=== PATIENT | male | born 1935 | race Caucasian/White ===

== ENCOUNTER 2018-03-05 07:10 | Observation (INO) | payer MEDICARE ==
[~2018-03-05] VITALS: Ht 177.8 cm; Wt 106.6 kg
[~2018-03-05 07:10] MED LIST: ASPIRIN325 MG PO; HCTZ; HYDROCHLOROTHIA25 MG PO; HYDROCODON-ACE1 EA12 PO; NORVASC; NORVASC5 MG PO; TENORMIN; TENORMIN25 MG PO; Z.0.ASPIRIN325 MG PO
--- OUTSIDE RECORDS SUMMARY | 2018-03-05 07:13 | XMS REPORT ---
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 Allergies, Adverse Reactions, Alerts This patient has no known allergies or adverse reactions. Medications This patient has no known medications. Results Test Description Test Time Test Comments Text Results Atomic Results Result Comments KNEE LEFT 1-2 VIEWS [place] [address] Patient Name: YAKOV ARTHUR MR #: [id number] : 1935 Age/Sex: 82/M Req #: [id number] [facility] Physician: Ordered by: LUBNA GARCIA MD Report #: [id number] Location: OR Room/Bed: Procedure: [id number] DX/KNEE LEFT 1-2 VIEWS Exam Date: 03/11/17 Exam Time: 1140 REPORT STATUS: Signed PROCEDURE: KNEE LEFT 1-2 VIEWS TECHNIQUE: AP and crosstable lateral views left knee INDICATION: Postsurgical evaluation COMPARISON: None. FINDINGS: See conclusion. CONCLUSION: 1. Total left knee arthroplasty intact and in anatomic alignment. 2. Expected postsurgical changes including joint gas, effusion, soft tissue swelling and overlying surgical alban. 3. Femoral and popliteal atherosclerosis. Dictated by: María Elena Eden M.D. on 03/11/2017 at 12:07 Electronically approved by: María Elena Eden M.D. on 03/11/2017 at 12:07 Dictated By: MARÍA ELENA EDEN MD 1207 Transcribed By: HARMEET on 03/11/17 1207 COPY TO: LUBNA GARCIA MD CHEST 2 VIEWS [place] [address] Patient Name: YAKOV ARTHUR MR #: [id number] : 1935 Age/Sex: 82/M Req #: [id number] Adm Physician: Ordered by: LUBNA GARCIA MD Report #: [id number] Location: OR Room/Bed: Procedure: [id number] DX/CHEST 2 VIEWS Exam Date: Exam Time: REPORT STATUS: Signed PROCEDURE: Frontal and lateral views of the chest. COMPARISON: [facility], DX, CHEST 2 VIEWS, 03/02/2012, 5:01. INDICATIONS: PREOPERATIVE CHEST XRAY FOR LEFT KNEE SURGERY FINDINGS: Lines/tubes: None. Lungs: The lungs are well inflated and clear. There is no evidence of pneumonia or pulmonary edema. Pleura: There is no pleural effusion or pneumothorax. Heart and mediastinum: The heart and the mediastinum are normal. Atherosclerotic calcification of the aortic arch. Bones: No acute bony abnormality. IMPRESSION: 1. No acute cardiopulmonary abnormalities. Jenise Erickson M.D. Dictated by: Jenise Erickson M.D. on 03/07/2017 at 12:29 Electronically approved by: Jenise Erickson M.D. on 03/07/2017 at 12:29 Dictated By: JENISE ERICKSON MD 28 Transcribed By: HARMEET on 03/07/171228 COPY TO: LUBNA GARCIA MD KNEE LEFT THREE VIEWS [place] [address] Patient Name: YAKOV ARTHUR MR #: [id number] : 1935 Age/Sex: 82/M Req #: [id number] Adm Physician: Ordered by: OLENA MARTINEZ Report #: [id number] Location: ER Room/Bed: Procedure: [id number] DX/KNEE LEFT THREE VIEWS Exam Date: 02/14/17 Exam Time: 1715 REPORT STATUS: Signed PROCEDURE: X-RAY LEFT KNEE, THREE OR MORE VIEWS COMPARISON: None. INDICATIONS: LEFT KNEE LATERAL PAIN, unable to bend knee FINDINGS: The bones are diffusely demineralized and intact. Mild varus deformity is present. There are moderate degenerative changes of the medial and patellofemoral compartments and [id number] degenerative changes of the lateral compartment. A small joint effusion is present. Atherosclerotic calcifications are present in the arterial structures. 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 Dictated by: Kenna Zaidi M.D. on 02/14/2017 at 18:04 Electronically approved by: Kenna Zaidi M.D. on 02/14/2017 at 18:04 Dictated By: KENNA ZAIDI MD 03 Transcribed By: HARMEET on 02/14/171803 COPY TO: OLENA MARTINEZ
[2018-03-05 08:39] LABS: BASOPHILS % 0.5 % (0.0-1.0); EOSINOPHILS # (AUTO) 0.2 (0.0-0.4); EOSINOPHILS % 2.7 % (0.0-6.0); HEMOGLOBIN 14.4 g/dL (14.0-18.0); LYMPHOCYTES # (AUTO) 2.3 (1.0-3.2); LYMPHOCYTES % 29.1 % (18.0-39.1); MEAN CORPUSCULAR HEMOGLOBIN 25.4 pg (28-32); MEAN CORPUSCULAR VOLUME 79.4 fL (81-99); MONOCYTES # (AUTO) 0.9 (0.2-0.8); MONOCYTES % 12.2 % (4.4-11.3); NEUTROPHILS # (AUTO) 4.2 (2.1-6.9); PLATELET COUNT 138 x10e3/uL (140-360); RED BLOOD COUNT 5.67 x10e6/uL (4.3-5.7); RED CELL DISTRIBUTION WIDTH 14.5 % (11.7-14.4)
[2018-03-05] MEDS ORDERED: PANTOPRAZOLE 40 MG 10ML VIAL IV ONE (08:40)
[2018-03-05 08:49] LABS: AMPHETAMINES SCREEN,URINE NEGATIVE (NEGATIVE); BENZODIAZEPINES SCREEN,URINE NEGATIVE (NEGATIVE); PHENCYCLIDINE SCREEN,URINE NEGATIVE (NEGATIVE)
[2018-03-05 09:09] LABS: ALBUMIN 3.5 g/dL (3.5-5.0); ALBUMIN/GLOBULIN RATIO 1.1 (0.8-2.0); ANION GAP 10.7 mmol/L (8-16); CALCIUM 9.3 mg/dL (8.4-10.2); CREATININE, SERUM 1.17 mg/dL (0.72-1.25); POTASSIUM 3.7 mmol/L (3.5-5.1)
[2018-03-05 09:16] LABS: CREATINE KINASE MB 1.1 ng/mL (0-5.0)
[2018-03-05 11:42] VITALS: BP 150/72
[2018-03-05 12:37] VITALS: BP 150/72
[2018-03-05 12:39] VITALS: BP 150/72
[2018-03-05 14:48] LABS: HEMATOCRIT 47.1 % (38.2-49.6); HEMOGLOBIN 15.1 g/dL (14.0-18.0)
[2018-03-05] MEDS ORDERED: AMLODIPINE BESYLATE 5 MG TAB PO SCH (15:45)
[2018-03-05 16:22] VITALS: BP 152/98
--- NOTE | 2018-03-05 18:10 | History and Physical ---
SHORTSTAY SUMMARY PRIMARY CARE PROVIDER: Dr. Gorge Gilman. ADMITTING DIAGNOSES 1. Rectal bleeding. 2. Hypertension. 3. Arthritis. DISCHARGE DIAGNOSES 1. Rectal bleeding. 2. Hypertension. 3. Arthritis. 4. Hemorrhoids as a source of rectal bleeding. HISTORY OF PRESENT ILLNESS: Mr. Sevilla is an 83-year-old gentleman who does have a history of hemorrhoids in the past. He started noticing some faint amount of blood on the paper when he was wiping for the last 2 days and then last night had a bowel movement that had blood in it. He has had no bowel movement today. REVIEW OF SYSTEMS: He denies fever, chills or weight loss. He denies sinus congestion or sore throat. He denies chest pain or palpitations. He denies shortness breath, wheezing or cough. He denies abdominal pain, nausea or vomiting. He had rectal bleeding. He denies any previous melena. He denies dysuria or flank pain. He denies rash or pruritus. He denies joint pain or swelling except for arthritis. He denies headache, vertigo or loss of consciousness. He denies depression, agitation, homicidal or suicidal ideation. PAST MEDICAL HISTORY: Significant for hypertension, arthritis and hemorrhoids. He also has a history of a left total knee replacement. MEDICATIONS: Include Norvasc 5 mg daily and atenolol 25 mg daily and hydrochlorothiazide 25 mg daily and aspirin 325 mg daily. HE HAS NO KNOWN DRUG ALLERGIES. FAMILY HISTORY: Significant for hypertension. SOCIAL HISTORY: The patient is . Singaporean is his primary language. He does not smoke, drink or use illegal drugs, and he is generally independently functioning. PHYSICAL EXAM: PSYCHIATRIC: He is awake, alert and oriented times 3. He has normal mood and affect. He has a normal body habitus. Is in no acute distress. VITAL SIGNS: Blood pressure 150/72. Pulse 67 and regular. Respiratory rate 21. O2 sat 98% on room air. Temperature 97.8. HEENT: His head is atraumatic. His eyes are anicteric with clear conjunctivae. Ears and nares are without erythema or discharge. Oropharynx is clear. NECK: Is supple with no mass or thyromegaly. LYMPHATIC SYSTEM: He has no palpable cervical, axillary or inguinal adenopathy. CARDIOVASCULAR: His heart has a regular rate and rhythm without murmur or extra heart sound. He has no carotid bruit. He has no peripheral edema. He has palpable dorsal pedal pulses. RESPIRATORY: Lungs are clear to auscultation and percussion with normal respiratory effort. GASTROINTESTINAL: His abdomen is soft without organomegaly, masses or tenderness. He has normal bowel sounds present. CUTANEOUS: His skin is warm and dry to the touch with no rash or skin breakdown. MUSCULOSKELETAL: His joints are in normal alignment without erythema or swelling. He has no calf tenderness. NEUROLOGIC: Exam is nonfocal with intact cranial nerves and no motor or sensory deficits. DIAGNOSTIC STUDIES: His UDS is positive for opiates. His CBC shows a white count of 7.72 with a normal differential, hemoglobin 14.4, hematocrit 45.0, platelet count 138,000. Six hours later, hemoglobin 15.1, hematocrit 47.1. His coags are normal. His transaminases, bilirubin, alk phos are normal. IMPRESSION: 1. Rectal bleeding. Most likely hemorrhoidal. No significant drop in H&H. 2. Hypertension. Continue Norvasc and atenolol. 3. For prophylaxis, the patient was put on Protonix. HOSPITAL COURSE: The patient was admitted for 12 hours. His H&H remained stable; in fact, it actually went up. He had no further bleeding. No bowel movement today. He was discharged home to resume a regular diet, activity as tolerated, to continue all of his home medications and to follow up with his PCP within 2 weeks to arrange for outpatient colonoscopy. Job#: [id number] EV
[2018-03-06] MEDS ORDERED: ATENOLOL 25 MG PO SCH (09:00)
[2018-03-06] MEDS ORDERED: PANTOPRAZOLE 40 MG 10ML VIAL IV SCH (09:00)
[2018-03-06] MEDS ORDERED: ATENOLOL 50 MG TAB PO SCH (09:00)
== END 2018-03-05 18:09 | disposition home or self-care (01) ==
LOC: ER 07:10 → ERHOLD 08:55 → IMCU 11:22
PROVIDERS: ADMIT Internal Medicine; ATTEND Internal Medicine
DX: K64.8 Other hemorrhoids (principal); K92.1 Melena; I10 Essential (primary) hypertension; M19.90 Unspecified osteoarthritis, unspecified site; Z96.652 Presence of left artificial knee joint
CPT/HCPCS: 36415; 80053; 80307; 82550; 82553; 84484; 85014; 85018; 85025; 85730; 86850; 86900; 93005; 99284; G0378

== ENCOUNTER → 2018-04-22 | Outpatient (CLI) | payer MEDICARE ==
[~2018-04-22] MED LIST changes: +IOPAMIDOL 370 MG/ML 200 ML INFUS..BTL INJ ONE; +SODIUM CHLORIDE 0.9% 50ML 50 ML ONE
[2018-04-22 08:31] LABS: BLOOD UREA NITROGEN 15 mg/dL (7-26); BUN/CREATININE RATIO 15 (6-25); CREATININE, SERUM 0.98 mg/dL (0.72-1.25); EST GLOMERULAR FILTRATION RATE > 60 ML/MIN (60-)
--- NOTE | 2018-04-22 09:29 | Diagnostic Imaging Report ---
EXAMINATION: CT of the abdomen and pelvis with contrast. TECHNIQUE: Spiral CT images of the abdomen and pelvis were performed from the lung bases to the lesser trochanters after the intravenous administration of 100 cc of Isovue-370. Coronal and sagittal reformatted images were obtained. COMPARISON: None. CLINICAL HISTORY:Rectal mass by recent colonoscopy, multiple colon polyps, diverticulosis DISCUSSION: ABDOMEN/PELVIS: LOWER THORAX:5 mm juxtapleural right lower lobe nodule seen on series 2 image 4. Right lower lobe calcified granuloma series 2 image 16. HEPATOBILIARY: 1.8 cm hypoattenuating lesion in segment 6-7, average internal attenuation 6 Hounsfield units, compatible with a cyst. Hepatic parenchyma is otherwise diffusely hypoattenuating compatible with steatosis. No additional focal hepatic lesion. No intrahepatic biliary ductal dilatation. The gallbladder is normal. SPLEEN: No splenomegaly. PANCREAS: No focal masses or ductal dilatation. ADRENALS: No adrenal nodules. KIDNEYS/URETERS: Subcentimeter exophytic lesion projecting from the upper pole of the left kidney is too small to further characterize but likely to represent a small cyst. No additional focal renal lesions. No hydronephrosis. No calculi. PELVIC ORGANS/BLADDER: The urinary bladder is incompletely distended but otherwise unremarkable. The prostate is enlarged, measuring 6.7 cm transversely. PERITONEUM/RETROPERITONEUM: No ascites. No pneumoperitoneum. LYMPH NODES: No pelvic sidewall or retroperitoneal lymphadenopathy. 1.2 cm lymph node along the inferior mesenteric arterial chain (series 2 image 61). Enlarged medial rectal lymph nodes measure up to 11 mm short axis seen on series 2 image 68 and 67. VESSELS: There is atherosclerotic calcification of the abdominal aorta, major branch vessels, and iliac arterial systems without aneurysmal dilatation. Portal vein, splenic vein, and central superior mesenteric vein are patent. GI TRACT: 5.7 cm AP x 4.6 cm transverse irregularly marginated hypoattenuating mass of the distal sigmoid/proximal rectum best seen on series 2 image 71. Multiple descending and sigmoid diverticula without findings of diverticulitis. The appendix is not identified and may have been removed. Prominence of the gastric rugal folds is a consequence of peristalsis and underdistention. No small bowel dilatation to suggest obstruction. BONES AND SOFT TISSUE: No osseous destructive lesions. Multilevel degenerative disc changes and degenerative facet arthropathy of the lumbar spine. Small bilateral fat-containing inguinal hernias. No additional focal soft tissue abnormalities. IMPRESSION: 5.7 cm distal sigmoid/proximal rectal mass in keeping with the provided clinical history of endoscopically detected colorectal cancer. Regional metastatic lymphadenopathy in the mesocolon and along the inferior mesenteric arterial chain as detailed above. No definite evidence of distant metastases. 5 mm juxtapleural right lower lobe pulmonary nodule is likely related to prior infectious or inflammatory process, particularly in the setting of an adjacent right lower lobe calcified granuloma. However, attention on follow-up imaging studies is suggested. Atherosclerotic vascular disease. Large bowel diverticulosis without evidence of diverticulitis. Hepatic steatosis. Signed by: Dr. Gonzalez Amaro M.D. on 04/22/2018 9:26 AM
== END ==
LOC: CT 07:22
PROVIDERS: ATTEND Internal Medicine Gastroenterology
DX: K92.1 Melena (principal); K56.600 Partial intestinal obstruction, unspecified as to cause; D12.0 Benign neoplasm of cecum; D12.3 Benign neoplasm of transverse colon; D12.4 Benign neoplasm of descending colon; K57.30 Diverticulosis of large intestine without perforation or abscess without bleeding
CPT/HCPCS: 36415; 74177; 82565; 84520; Q9967

== ENCOUNTER 2018-05-01 10:49 | Inpatient (IN) | payer MEDICARE ==
[2018-04-28 11:43] LABS: BASOPHILS % 0.4 % (0.0-1.0); EOSINOPHILS # (AUTO) 0.2 (0.0-0.4); HEMATOCRIT 47.9 % (38.2-49.6); LYMPHOCYTES # (AUTO) 2.3 (1.0-3.2); LYMPHOCYTES % 25.3 % (18.0-39.1); MEAN CORPUSCULAR HEMOGLOBIN 24.7 pg (28-32); MEAN CORPUSCULAR HGB CONC 31.3 g/dL (31-35); MEAN CORPUSCULAR VOLUME 78.9 fL (81-99); MONOCYTES # (AUTO) 1.1 (0.2-0.8); MONOCYTES % 11.5 % (4.4-11.3); NEUTROPHILS # (AUTO) 5.5 (2.1-6.9); NEUTROPHILS % 60.4 % (38.7-80.0); PLATELET COUNT 180 x10e3/uL (140-360); RED BLOOD COUNT 6.07 x10e6/uL (4.3-5.7); RED CELL DISTRIBUTION WIDTH 15.1 % (11.7-14.4)
--- NOTE | 2018-04-28 11:47 | Diagnostic Imaging Report ---
EXAMINATION: CHEST 2 VIEWS INDICATION: ^PREOP PROTOCOL. Rectal mass. COMPARISON: CT abdomen and pelvis 04/22/2018. FINDINGS: PA and lateral views TUBES and LINES: None. LUNGS: Lungs are well inflated. Lungs are clear. There is no evidence of pneumonia or pulmonary edema. PLEURA: No pleural effusion or pneumothorax. HEART AND MEDIASTINUM: The cardiomediastinal silhouette is unremarkable. There are atherosclerotic calcifications within the aorta. BONES AND SOFT TISSUES: No acute osseous lesion. Soft tissues are unremarkable. UPPER ABDOMEN: No free air under the diaphragm. IMPRESSION: No acute thoracic abnormality. Signed by: Dr. Steve Romero M.D. on 04/28/2018 11:44 AM
[2018-04-28 11:59] LABS: ANION GAP 15.4 mmol/L (8-16); BLOOD UREA NITROGEN 11 mg/dL (7-26); BUN/CREATININE RATIO 11 (6-25); CALCIUM 9.8 mg/dL (8.4-10.2); CARBON DIOXIDE 27 mmol/L (22-29); CHLORIDE 101 mmol/L (98-107); CREATININE, SERUM 1.03 mg/dL (0.72-1.25); EST GLOMERULAR FILTRATION RATE > 60 ML/MIN (60-); GLUCOSE 103 mg/dL (74-118); POTASSIUM 4.4 mmol/L (3.5-5.1); SODIUM 139 mmol/L (136-145)
[~2018-05-01] VITALS: Ht 182.9 cm; Wt 102.5 kg
[~2018-05-01 10:49] MED LIST changes: +ATENOLOL50 MG PO; -IOPAMIDOL 370 MG/ML 200 ML INFUS..BTL INJ ONE; -SODIUM CHLORIDE 0.9% 50ML 50 ML ONE
[2018-05-01] MEDS ORDERED: CEFOXITIN SOD 1 GM VIAL ONE (11:25)
[2018-05-01] MEDS ORDERED: BUPIVACAINE 0.25% 30ML SDV INJ ONE (13:01)
[2018-05-01] MEDS ORDERED: HYDROMORPHONE 2MG/ML 2 MG/ML ML ONE (14:14)
[2018-05-01] MEDS ORDERED: DIPHENHYDRAMINE HCL 25 MG CAP PO PRN (15:00)
[2018-05-01] MEDS ORDERED: NALOXONE HCL INJ 0.4 MG/ML AMP IV PRN (15:00)
[2018-05-01] MEDS ORDERED: ACETAMINOPHEN 1000 MG/100 ML IV PRN (15:00)
[2018-05-01] MEDS ORDERED: ONDANSETRON HCL INJ 2MG/ML 2ML 2 MG/ML VIAL ONE ×2 (15:23→19:20)
--- NOTE | 2018-05-01 15:57 | Operative Report ---
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 POSTOPERATIVE DIAGNOSIS: Carcinoma of the rectosigmoid colon. OPERATION PERFORMED: Laparoscopic-assisted rectosigmoid colon resection. REVIEW TRAINER: None. ANESTHESIA: General. INDICATIONS FOR PROCEDURE: The patient is an 83-year-old male who had blood in his stool, had a colonoscopy that revealed a tumor t the rectosigmoid colon. At surgery there was a large tumor involving the rectosigmoid colon with no other evidence of enlarged lymph nodes. No mass in the liver. TECHNIQUE: After adequate general endotracheal anesthesia with the patient in supine position with the legs in low stirrups, the abdomen and perineum were prepped and draped in a sterile fashion, the abdomen with ChloraPrep solution, the perineum with Betadine solution. Skin just below the umbilicus was infiltrated with 0.5% Marcaine. An incision was made, the abdominal wall was elevated and a Veress needle was introduced. Pneumoperitoneum was then created. A 10 mm trocar and cannula was then passed through this wound. A laparoscopic camera was introduced. Initial laparoscopy revealed no free fluid. No mass was seen. A 5 mm trocar and cannula was placed in the epigastrium, and a 5 mm trocar and cannula was placed suprapubically. These were placed under direct vision. The left colon and sigmoid colon were mobilized by dividing the peritoneal attachments. The colon was mobilized all way up to the splenic flexure and distally to the rectosigmoid colon where the tumor was seen. The left ureter was identified and preserved. The tumor was extending close to the ureter, but the ureter was not directly involved with the tumor. The colon was mobilized all the way down to the peritoneal reflection with the peritoneal attachments divided. Once again care was taken not to injure the ureter. The tumor also was abutting the iliac vessels, and it was dissected away from these vessels. Once the mobilization was complete, a lower midline incision was made. The peritoneal cavity was entered. The sigmoid colon was divided with the MARLEN stapler. This was just beyond the midsigmoid colon. The mesentery of the colon was divided with a LigaSure device. Care was taken not to injure the ureter. This was taken down to the sacral prominence, and then posteriorly all the vessels were divided until the dissection was carried below the level of the tumor. Once we were below the tumor, the colon was divided, the distal colon being stapled with a TL-60 stapler and the specimen was removed. The distal margin appeared to be about 2.5 cm. Hemostasis was seen to be adequate. At this point going transanally, the anus was dilated. An anastomosis was made between the proximal colon and the rectum with a 29 mm EEA stapler. Both tissue doughnuts were noted to be intact. Hemostasis was seen to be adequate. The wound was then irrigated with saline, inspected for hemostasis, which was seen to be adequate. The midline fascia was then closed with a running suture of number 1 PDS. The subcutaneous tissue was irrigated with saline. The skin to all wounds was closed with alban. A sterile dressing was applied. The patient tolerated the procedure well. Estimated blood loss was 125 mL. There were no complications. All counts were correct. The patient was taken to the recovery room in satisfactory condition. Job#: [id number] EV cc:MD CESAR CM MD MILTON E. KIRKWOOD, DO
[2018-05-01 16:59] VITALS: BP 143/81
[2018-05-01 17:22] VITALS: BP 131/88
[2018-05-01] MEDS: MORPHINE SULFATE 1 MG/ML 30ML PCA IV PRN (17:27)
--- NOTE | 2018-05-01 17:47 | NUR ---
notified Dr. Regalado of new consult for him by Dr. Padron for medical management.
[2018-05-01] MEDS ORDERED: CEFOXITIN 2GM/ D5W 50ML 50 ML IV SCH (18:00)
[2018-05-01] MEDS: DEXTROSE 5%/LACTATED RINGERS 1,000 ML IV SCH ×2 (18:55→22:53)
[2018-05-01 19:00] VITALS: BP 122/85
[2018-05-01] MEDS ORDERED: DEXAMETHASONE SOD PHOS INJ 4 MG/ML VIAL ONE (19:20)
[2018-05-01] MEDS ORDERED: EPHEDRINE SULFATE INJ 50 MG/10 ML SYR ONE (19:20)
[2018-05-01] MEDS ORDERED: SEVOFLURANE INHAL SOLN 250 ML PEN BTL ONE (19:20)
[2018-05-01] MEDS ORDERED: GLYCOPYRROLATE INJ 1MG/ 5 ML SYR ONE (19:20)
[2018-05-01] MEDS ORDERED: ROCURONIUM BROMIDE 10 MG/ML 5ML VIAL ONE (19:20)
[2018-05-01] MEDS ORDERED: LIDOCAINE HCL 2% LOCAL INJ 5 ML SDV VIAL INJ ONE (19:20)
[2018-05-01] MEDS ORDERED: NEOSTIGMINE 5 MG/5ML SYR ONE (19:20)
[2018-05-01] MEDS ORDERED: FENTANYL CITRATE/PF 100MCG/2 ML INJ ONE (19:20)
[2018-05-01] MEDS ORDERED: PROPOFOL IV EMULSION 10 MG/ML 20 ML VIAL ONE (19:20)
[2018-05-01] MEDS ORDERED: MIDAZOLAM HCL 2 MG/2 ML VIAL ONE (19:20)
[2018-05-01 20:00] VITALS: BP 120/72
[2018-05-01] MEDS: CEFOXITIN SODIUM IV SCH (20:13)
[2018-05-01] MEDS: SODIUM CHLORIDE 0.9% IV SCH (20:13)
[2018-05-01] MEDS: ONDANSETRON HCL INJ 2MG/ML 2ML 2 MG/ML VIAL IV PRN (20:15)
[2018-05-01 21:00] VITALS: BP 105/72
[2018-05-01 22:00] VITALS: BP 114/73
[2018-05-02] VITALS (15 sets, daily range): BP systolic 101–116; BP diastolic 56–68
[2018-05-02] MEDS: CEFOXITIN SODIUM IV SCH ×2 (00:24→05:09)
[2018-05-02] MEDS: ONDANSETRON HCL INJ 2MG/ML 2ML 2 MG/ML VIAL IV PRN (00:24)
[2018-05-02] MEDS: SODIUM CHLORIDE 0.9% IV SCH ×2 (00:24→05:09)
[2018-05-02 04:53] LABS: BASOPHILS % 0.2 % (0.0-1.0); EOSINOPHILS % 0.1 % (0.0-6.0); HEMATOCRIT 36.5 % (38.2-49.6); HEMOGLOBIN 12.2 g/dL (14.0-18.0); LYMPHOCYTES # (AUTO) 1.5 (1.0-3.2); LYMPHOCYTES % 13.5 % (18.0-39.1); MEAN CORPUSCULAR HEMOGLOBIN 25.6 pg (28-32); MEAN CORPUSCULAR HGB CONC 33.4 g/dL (31-35); MEAN CORPUSCULAR VOLUME 76.5 fL (81-99); MONOCYTES # (AUTO) 1.4 (0.2-0.8); MONOCYTES % 12.4 % (4.4-11.3); NEUTROPHILS # (AUTO) 8.3 (2.1-6.9); NEUTROPHILS % 73.5 % (38.7-80.0); PLATELET COUNT 150 x10e3/uL (140-360); RED BLOOD COUNT 4.77 x10e6/uL (4.3-5.7); RED CELL DISTRIBUTION WIDTH 15.2 % (11.7-14.4)
[2018-05-02 05:05] LABS: ANION GAP 11.1 mmol/L (8-16); BLOOD UREA NITROGEN 14 mg/dL (7-26); BUN/CREATININE RATIO 13 (6-25); CALCIUM 8.2 mg/dL (8.4-10.2); CARBON DIOXIDE 26 mmol/L (22-29); CHLORIDE 106 mmol/L (98-107); CREATININE, SERUM 1.05 mg/dL (0.72-1.25); EST GLOMERULAR FILTRATION RATE > 60 ML/MIN (60-); GLUCOSE 145 mg/dL (74-118); POTASSIUM 4.1 mmol/L (3.5-5.1); SODIUM 139 mmol/L (136-145)
[2018-05-02] MEDS: DEXTROSE 5%/LACTATED RINGERS 1,000 ML IV SCH (05:09)
[2018-05-02 07:22] LABS: CHOL/HDL RATIO 4.9 (3.9-4.7)
--- NOTE | 2018-05-02 07:59 | Consultation ---
DATE OF CONSULTATION: MEDICAL CONSULTATION REQUESTING PHYSICIAN: Dr. Padron. REASON FOR CONSULTATION: Medical management. CHIEF COMPLAINT: Rectosigmoid cancer diagnosed in April 2018, now status post surgical resection. HISTORY OF PRESENT ILLNESS: This is an 83-year-old man with a history of tobacco use who has dipped tobacco for more than 60 years, now found to have 5.7-cm distal sigmoid/proximal rectal mass consistent with colorectal cancer on 04/22/2018. Underwent surgical resection overnight by Dr. Padron, now in the ICU for management. The patient's pain is controlled with SERVICE STATION HELPER pump. He denies any shortness of breath or chest pain. PAST MEDICAL HISTORY: A 5.7-cm distal sigmoid/proximal rectal mass consistent with colorectal cancer, tobacco smoking and dipping, hepatic steatosis, atherosclerotic vascular disease, hypertension, anemia, arteritis, rectal bleeding, hemorrhoids. PAST SURGICAL HISTORY: Unknown. ALLERGIES: PER ELECTRONIC MEDICAL RECORD. FAMILY/SOCIAL HISTORY: Remote history of smoking. He dipped tobacco for more than 60 years. Occasional alcohol. No illicits. MEDICATIONS: Per electronic medical record. REVIEW OF SYSTEMS: Denies any dizziness, chest pain, shortness of breath, fever, chills, sweats, nausea, vomiting, headache, leg pain, back pain. PHYSICAL EXAMINATION VITAL SIGNS: Reviewed. GENERAL: A tired-appearing man, resting in bed. HEENT: Anicteric. CARDIOVASCULAR: Normal S1 and S2. LUNGS: Normal breath sounds. ABDOMEN: Soft, nondistended. He has midline dressing in place. EXTREMITIES: No edema or calf tenderness. NEUROLOGIC: He is alert and oriented x3, moves all extremities. SKIN: Dry. PSYCHIATRIC: Normal affect. LABS: Reviewed. MEDICATIONS: Reviewed. ASSESSMENT: This is an 83-year-old man. 1. Colorectal cancer. 2. Hypertension. 3. Obesity, body mass index is 32.2. 4. Hyperglycemia. 5. History of tobacco use. PLAN 1. Status post resection of the colorectal mass. 2. Continue pain management. 3. Screen for hemoglobin A1c and lipid panel. 4. SCD for DVT prophylaxis and Pepcid for GI prophylaxis. 5. Monitor closely. Diet, will defer to surgical team. Job#: [id number]
[2018-05-02] MEDS: MORPHINE SULFATE 1 MG/ML 30ML PCA IV PRN (08:30)
[2018-05-02] MEDS: AMLODIPINE BESYLATE 5 MG TAB PO SCH (09:00)
[2018-05-02] MEDS: ATENOLOL 50 MG TAB PO SCH (09:00)
[2018-05-02] MEDS: HYDROCHLOROTHIAZIDE 25 MG TAB PO SCH (09:00)
[2018-05-02] MEDS: FAMOTIDINE 20 MG/2 ML VIAL IV SCH ×2 (09:07→17:22)
[2018-05-02] MEDS: KETOROLAC TROMETHAMINE 30 MG/ML VIAL IV PRN ×2 (10:15→16:20)
--- NOTE | 2018-05-02 14:37 | NUR ---
paged Dr. Padron as patient asking for ice chips and to remove yepez catheter. encouraging patient to turn and deep breathing exercises. patient verbalized understanding.
[2018-05-02] MEDS: DEXTROSE 5%/0.45% SOD CHL 1,000 ML IV SCH ×3 (15:45→17:27)
--- NOTE | 2018-05-02 17:34 | NUR ---
yepze catheter removed. dtv 0000
--- NOTE | 2018-05-02 17:35 | NUR ---
pt sat in chair x 45minutes-1hr. pt tolerated oob well then became tired. pt hesitant to move due to pain. 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
--- NOTE | 2018-05-02 18:26 | NUR ---
Received patient from ICU at this time, alert and responsive, able to make needs known, Roeyr d/c'd per ICU nurse and due to void at 12 midnight tonight, IMAGING AIDE pump in place for pain management, call light within reach, bed alarms in place, on clear liqs, will monitor.
--- NOTE | 2018-05-02 19:10 | NUR ---
REPORT RECEIVED FROM OFF GOING NURSE, PT RESTING IN BED ALERT AND ORIENTED, WITH NO DISTRESS NOTED, IV INFUSING PER ORDER, CALL LIGHT IN REACH, PT INSTRUCTED TO INFORM OF FIRST VOID, PT VOICES UNDERSTANDING, INSTRUCTED TO CALL WITH NEEDS
[2018-05-03] VITALS (8 sets, daily range): BP systolic 101–143; BP diastolic 51–65
[2018-05-03 05:43] LABS: HEMATOCRIT 35.2 % (38.2-49.6); HEMOGLOBIN 11.6 g/dL (14.0-18.0); MEAN CORPUSCULAR HEMOGLOBIN 25.8 pg (28-32); MEAN CORPUSCULAR VOLUME 78.2 fL (81-99); PLATELET COUNT 141 x10e3/uL (140-360); RED CELL DISTRIBUTION WIDTH 15.3 % (11.7-14.4)
[2018-05-03 06:00] LABS: ANION GAP 11.4 mmol/L (8-16); BLOOD UREA NITROGEN 12 mg/dL (7-26); BUN/CREATININE RATIO 11 (6-25); CALCIUM 8.3 mg/dL (8.4-10.2); CARBON DIOXIDE 26 mmol/L (22-29); CHLORIDE 106 mmol/L (98-107); CREATININE, SERUM 1.09 mg/dL (0.72-1.25); EST GLOMERULAR FILTRATION RATE > 60 ML/MIN (60-); GLUCOSE 125 mg/dL (74-118); POTASSIUM 4.4 mmol/L (3.5-5.1); SODIUM 139 mmol/L (136-145)
[2018-05-03] MEDS: FAMOTIDINE 20 MG/2 ML VIAL IV SCH ×2 (09:11→16:12)
[2018-05-03] MEDS: AMLODIPINE BESYLATE 5 MG TAB PO SCH (09:11)
[2018-05-03] MEDS: HYDROCHLOROTHIAZIDE 25 MG TAB PO SCH (09:11)
[2018-05-03] MEDS: ATENOLOL 50 MG TAB PO SCH (09:12)
[2018-05-03] MEDS: KETOROLAC TROMETHAMINE 30 MG/ML VIAL IV PRN (09:15)
--- NOTE | 2018-05-03 09:28 | NUR ---
Patient medicated with Toradol and assisted OOB, ambulated in room to chair and daughter in room with patient, no resp distress, pains managed with BIG DATA HADOOP DEVELOPER morphine in place, will monitor.
--- NOTE | 2018-05-03 12:56 | NUR ---
IV to RAC infiltrated and new one to LAC 20 and infusing.
[2018-05-03] MEDS: DEXTROSE 5%/0.45% SOD CHL 1,000 ML IV SCH ×2 (13:12→21:45)
[2018-05-03] MEDS: MORPHINE SULFATE 1 MG/ML 30ML PCA IV PRN (13:15)
--- NOTE | 2018-05-03 17:06 | NUR ---
REVIEW OF SYSTEMS: Denies any dizziness, chest pain, shortness of breath, fever, chills, sweats, nausea, vomiting, headache, leg pain, back pain. PHYSICAL EXAMINATION VITAL SIGNS: Reviewed. GENERAL: A tired-appearing man, resting in bed. HEENT: Anicteric. CARDIOVASCULAR: Normal S1 and S2. LUNGS: Normal breath sounds. ABDOMEN: Soft, nondistended. He has midline dressing in place. EXTREMITIES: No edema or calf tenderness. NEUROLOGIC: He is alert and oriented x3, moves all extremities. SKIN: Dry. PSYCHIATRIC: Normal affect. LABS: Reviewed. MEDICATIONS: Reviewed. ASSESSMENT: This is an 83-year-old man. 1. Colorectal cancer. 2. Hypertension. 3. Obesity, body mass index is 32.2. 4. Hyperglycemia. 5. History of tobacco use. PLAN 1. Status post resection of the colorectal mass. 2. Continue pain management. 3. Screen for hemoglobin A1c and lipid panel. 4. SCD for DVT prophylaxis and Pepcid for GI prophylaxis. 5. Monitor closely. Diet, will defer to surgical team. 05/03 s/p Sandra morrison with DANIELA drain; Hudson Regalado MD, PhD.
--- NOTE | 2018-05-03 19:10 | NUR ---
REPORT RECEIVED FROM OFF GOING NURSE, PT SITTING UP IN BED ALERT AND ORIENTED, NO DISTRESS NOTED, IV INFUSING PER ORDER, DROP FORGE HAND AT BEDSIDE WITH BUTTON IN REACH, BED LOCKED AND LOW, PERSONAL ITEMS IN REACH, PT DENIES NEEDS, CALL LIGHT IN REACH, INSTRUCTED TO CALL WITH NEEDS
--- NOTE | 2018-05-03 20:34 | NUR ---
ADDENDUM NOTE; (error- not lap tamiko) IM- Progress Note O/N: no BM REVIEW OF SYSTEMS: Denies any dizziness, chest pain, shortness of breath, fever, chills, sweats, nausea, vomiting, headache, leg pain, back pain. PHYSICAL EXAMINATION VITAL SIGNS: Reviewed. GENERAL: A tired-appearing man, resting in bed. HEENT: Anicteric. CARDIOVASCULAR: Normal S1 and S2. LUNGS: Normal breath sounds. ABDOMEN: Soft, nondistended. He has midline dressing in place. EXTREMITIES: No edema or calf tenderness. NEUROLOGIC: He is alert and oriented x3, moves all extremities. SKIN: Dry. PSYCHIATRIC: Normal affect. LABS: Reviewed. MEDICATIONS: Reviewed. ASSESSMENT: This is an 83-year-old man. 1. Colorectal cancer. 2. Hypertension. 3. Obesity, body mass index is 32.2. 4. Hyperglycemia. 5. History of tobacco use. PLAN 1. Status post resection of the colorectal mass. 2. Continue pain management. 3. Screen for hemoglobin A1c and lipid panel. 4. SCD for DVT prophylaxis and Pepcid for GI prophylaxis. 5. Monitor closely. Diet, will defer to surgical team. 05/03 pain well controlled; cont PT; ambulation; on CLD; await return of bowel function; Hudson Regalado MD, PhD.
[2018-05-04] VITALS (8 sets, daily range): BP systolic 122–151; BP diastolic 60–78
--- NOTE | 2018-05-04 04:27 | NUR ---
PT RESTING IN BED WITH EYES CLOSED, NO DISTRESS NOTED, IV INFUSING PER ORDER, AQUEDUCT AND RESERVOIR KEEPER PUMP AND BUTTON IN REACH, BED LOCKED AND LOW, CALL LIGHT IN REACH, DAUGHTER AT BED SIDE
--- NOTE | 2018-05-04 08:16 | NUR ---
Received patient this morning and rounding, c/o abdominal pain, noted burping with increased frequency, assisted OOB and ambulating to bathroom, voided and ambulated hallway for a total of about 250 feet, up sitting on chair in the room , daughter by bedside, will monitor.
[2018-05-04] MEDS: DEXTROSE 5%/0.45% SOD CHL 1,000 ML IV SCH ×2 (08:51→17:45)
[2018-05-04] MEDS: FAMOTIDINE 20 MG/2 ML VIAL IV SCH ×2 (08:51→17:00)
[2018-05-04] MEDS: HYDROCHLOROTHIAZIDE 25 MG TAB PO SCH (08:51)
[2018-05-04] MEDS: AMLODIPINE BESYLATE 5 MG TAB PO SCH (08:51)
[2018-05-04] MEDS: ATENOLOL 50 MG TAB PO SCH (08:51)
--- NOTE | 2018-05-04 17:08 | NUR ---
Patient OOB and ambulated again with staff on hallway and back to chair for dinner, pains well managed, abdl incision intact, tolerating diet and will monitor
--- NOTE | 2018-05-04 19:05 | NUR ---
IM- Progress Note O/N: no BM REVIEW OF SYSTEMS: Denies any dizziness, chest pain, shortness of breath, fever, chills, sweats, nausea, vomiting, headache, leg pain, back pain. PHYSICAL EXAMINATION VITAL SIGNS: Reviewed. GENERAL: A tired-appearing man, resting in bed. HEENT: Anicteric. CARDIOVASCULAR: Normal S1 and S2. LUNGS: Normal breath sounds. ABDOMEN: Soft, nondistended. He has midline dressing in place. EXTREMITIES: No edema or calf tenderness. NEUROLOGIC: He is alert and oriented x3, moves all extremities. SKIN: Dry. PSYCHIATRIC: Normal affect. LABS: Reviewed. MEDICATIONS: Reviewed. ASSESSMENT: This is an 83-year-old man. 1. Colorectal cancer. 2. Hypertension. 3. Obesity, body mass index is 32.2. 4. Hyperglycemia. 5. History of tobacco use. PLAN 1. Status post resection of the colorectal mass. 2. Continue pain management. 3. Screen for hemoglobin A1c and lipid panel. 4. SCD for DVT prophylaxis and Pepcid for GI prophylaxis. 5. Monitor closely. Diet, will defer to surgical team. 05/03 pain well controlled; cont PT; ambulation; on CLD; await return of bowel function; 05/04 add bowel reg. Hudson Regalado MD, PhD.
[2018-05-04] MEDS: DOCUSATE SODIUM 100 MG CAP PO SCH (21:06)
[2018-05-04] MEDS: SENNOSIDES 8.6 MG TAB PO SCH (21:06)
[2018-05-05] VITALS (7 sets, daily range): BP systolic 120–155; BP diastolic 65–84
[2018-05-05] MEDS: MORPHINE SULFATE 1 MG/ML 30ML PCA IV PRN
[2018-05-05] MEDS: DEXTROSE 5%/0.45% SOD CHL 1,000 ML IV SCH (03:36)
[2018-05-05] MEDS ORDERED: ACETAMINOPHEN/CODEINE 300MG - 30MG TAB PO PRN (07:30)
--- NOTE | 2018-05-05 07:30 | NUR ---
IM- Progress Note O/N: no BM REVIEW OF SYSTEMS: Denies any dizziness, chest pain, shortness of breath, fever, chills, sweats, nausea, vomiting, headache, leg pain, back pain. PHYSICAL EXAMINATION VITAL SIGNS: Reviewed. GENERAL: A tired-appearing man, resting in bed. HEENT: Anicteric. CARDIOVASCULAR: Normal S1 and S2. LUNGS: Normal breath sounds. ABDOMEN: Soft, nondistended. He has midline dressing in place. EXTREMITIES: No edema or calf tenderness. NEUROLOGIC: He is alert and oriented x3, moves all extremities. SKIN: Dry. PSYCHIATRIC: Normal affect. LABS: Reviewed. MEDICATIONS: Reviewed. ASSESSMENT: This is an 83-year-old man. 1. Colorectal cancer. 2. Hypertension. 3. Obesity, body mass index is 32.2. 4. Hyperglycemia. 5. History of tobacco use. PLAN 1. Status post resection of the colorectal mass. 2. Continue pain management. 3. Screen for hemoglobin A1c and lipid panel. 4. SCD for DVT prophylaxis and Pepcid for GI prophylaxis. 5. Monitor closely. Diet, will defer to surgical team. 05/03 pain well controlled; cont PT; ambulation; on CLD; await return of bowel function; 05/04 add bowel reg. 05/05 start oral pain meds; cont bowel reg; cont PT; d/c planning; check labs Hudson Regalado MD, PhD.
--- NOTE | 2018-05-05 07:40 | NUR ---
AMBULATING IN HALLWAY, STEADY GAIT
[2018-05-05 07:43] LABS: BASOPHILS % 0.3 % (0.0-1.0); EOSINOPHILS # (AUTO) 0.3 (0.0-0.4); EOSINOPHILS % 4.5 % (0.0-6.0); HEMATOCRIT 35.6 % (38.2-49.6); HEMOGLOBIN 12.4 g/dL (14.0-18.0); LYMPHOCYTES # (AUTO) 1.8 (1.0-3.2); LYMPHOCYTES % 24.6 % (18.0-39.1); MEAN CORPUSCULAR HEMOGLOBIN 26.8 pg (28-32); MEAN CORPUSCULAR HGB CONC 34.8 g/dL (31-35); MEAN CORPUSCULAR VOLUME 76.9 fL (81-99); MONOCYTES % 13.5 % (4.4-11.3); NEUTROPHILS # (AUTO) 4.1 (2.1-6.9); NEUTROPHILS % 56.7 % (38.7-80.0); PLATELET COUNT 147 x10e3/uL (140-360); RED BLOOD COUNT 4.63 x10e6/uL (4.3-5.7); RED CELL DISTRIBUTION WIDTH 15.1 % (11.7-14.4)
[2018-05-05 07:57] LABS: ANION GAP 13.1 mmol/L (8-16); BLOOD UREA NITROGEN 6 mg/dL (7-26); BUN/CREATININE RATIO 6 (6-25); CALCIUM 9.1 mg/dL (8.4-10.2); CARBON DIOXIDE 28 mmol/L (22-29); CHLORIDE 101 mmol/L (98-107); CREATININE, SERUM 1.06 mg/dL (0.72-1.25); EST GLOMERULAR FILTRATION RATE > 60 ML/MIN (60-); GLUCOSE 117 mg/dL (74-118); POTASSIUM 4.1 mmol/L (3.5-5.1); SODIUM 138 mmol/L (136-145)
[2018-05-05] MEDS: SENNOSIDES 8.6 MG TAB PO SCH (09:00)
--- NOTE | 2018-05-05 09:09 | NUR ---
AMBULATING IN HALLWAY, STEADY GAIT, FAMILY AT SIDE
[2018-05-05] MEDS: DOCUSATE SODIUM 100 MG CAP PO SCH ×2 (10:00→21:00)
[2018-05-05] MEDS: ATENOLOL 50 MG TAB PO SCH (10:00)
[2018-05-05] MEDS: FAMOTIDINE 20 MG/2 ML VIAL IV SCH ×2 (10:00→18:00)
[2018-05-05] MEDS: AMLODIPINE BESYLATE 5 MG TAB PO SCH (10:00)
[2018-05-05] MEDS: HYDROCHLOROTHIAZIDE 25 MG TAB PO SCH (10:00)
[2018-05-05] MEDS ORDERED: HYDROCODONE/APAP 5MG-325MG TAB PO PRN (17:45)
--- NOTE | 2018-05-05 19:35 | NUR ---
Patient visited in room during nursing rounds. Patient alert and oriented x3. No c/o pain or discomfort at this time. Pt ambulates with standby assist prn using walker. Pt daughter at bedside. Dressing on mid lower abdomen with 3 trocar sites appear clean and dry. Call [facility] within reach. Will monitor closely.
[2018-05-06] VITALS: BP 148/77
[2018-05-06 04:00] VITALS: BP 143/73
[2018-05-06] MEDS ORDERED: SENNA LAXATIVE8.6 MG PO (06:50)
[2018-05-06] MEDS ORDERED: COLACE100 M1 PO (06:50)
[2018-05-06] MEDS ORDERED: PEPCID20 MG PO (06:50)
--- NOTE | 2018-05-06 07:22 | NUR ---
Discharge Summary Principal Dx: ASSESSMENT: This is an 83-year-old man. 1. Colorectal cancer. 2. Hypertension. 3. Obesity, body mass index is 32.2. 4. Hyperglycemia. 5. History of tobacco use. Secondary Dx: Obesity cc and HPI: refer to H&P Hospital course: ASSESSMENT: This is an 83-year-old man. 1. Colorectal cancer. 2. Hypertension. 3. Obesity, body mass index is 32.2. 4. Hyperglycemia. 5. History of tobacco use. PLAN 1. Status post resection of the colorectal mass. 2. Continue pain management. 3. Screen for hemoglobin A1c and lipid panel. 4. SCD for DVT prophylaxis and Pepcid for GI prophylaxis. 5. Monitor closely. Diet, will defer to surgical team. 05/03 pain well controlled; cont PT; ambulation; on CLD; await return of bowel function; 05/04 add bowel reg. 05/05 start oral pain meds; cont bowel reg; cont PT; d/c planning; check labs 05/06 had BM; on solid food; d/c home d/c time.35mins d/c home f/u PCP 1 week and as directed condition: stable; Hudson Regalado MD, PhD.
--- NOTE | 2018-05-06 08:00 | NUR ---
Call to Dr. Padron to clarify clear liquid diet and will have to call attending to clarify given he ordered the diet.
--- NOTE | 2018-05-06 08:20 | NUR ---
Call to attending x2 and left message regarding clarification on diet.
[2018-05-06 08:34] VITALS: BP 121/72
--- NOTE | 2018-05-06 09:20 | NUR ---
CM SPOKE TO PATIENT AT BEDSIDE REGARDING IMM LETTER. IMM LETTER GIVEN WITH EXPLANATION. ORIGINAL SIGNED AND PLACED IN CHART; COPY OF ORIGINAL DOCUMENT GIVEN TO PATIENT AT BEDSIDE AND PLACED IN CARE TRANSITION FOLDER. CM CONTACT INFORMATION GIVEN TO PATIENT FOR ANY NEEDS OR CONCERNS. PATIENT WITH NO FURTHER QUESTIONS
[2018-05-06] MEDS: FAMOTIDINE 20 MG/2 ML VIAL IV SCH (09:51)
[2018-05-06] MEDS: HYDROCHLOROTHIAZIDE 25 MG TAB PO SCH (09:51)
[2018-05-06] MEDS: DOCUSATE SODIUM 100 MG CAP PO SCH (09:51)
[2018-05-06] MEDS: AMLODIPINE BESYLATE 5 MG TAB PO SCH (09:51)
[2018-05-06] MEDS: ATENOLOL 50 MG TAB PO SCH (09:52)
--- NOTE | 2018-05-06 10:20 | NUR ---
Call to attending by nurse lan manager and orders in place to resume regular diet
--- NOTE | 2018-05-06 10:48 | NUR ---
Patient provided with discharge documentation, will go home on regular diet. Provided with prescriptions, discharge documentation and educated on prognosis and infection. Contacts provided for f/u appt.
[2018-05-06 11:40] VITALS: BP 121/72
[2018-05-06 12:06] VITALS: BP 125/80
--- NOTE | 2018-05-06 13:05 | NUR ---
Patient alert and responsive, VSS, no c/o pains, provided with prescriptions and discharge documentation, contacts provided for f/u appt, seen by surgeon this morning and orders in place to discharge, IV line removed, cath tip in place and dressing applied.
[2018-05-06] MEDS ORDERED: FAMOTIDINE 20 MG TAB PO SCH (16:30)
== END 2018-05-06 13:13 | disposition home or self-care (01) | DRG 331 ==
LOC: OR 10:49 → PACU V 15:38 → ICU 16:18 → MED/SURG 05-02 18:35
PROVIDERS: ADMIT Surgery; ATTEND Surgery
PROC: 0DTN0ZZ Resection of Sigmoid Colon, Open Approach (ICD-10-PCS; principal; 2018-05-01 13:01)
DX: C19 Malignant neoplasm of rectosigmoid junction (principal); Z01.812 Encounter for preprocedural laboratory examination; I10 Essential (primary) hypertension; E66.9 Obesity, unspecified; Z68.32 Body mass index [BMI] 32.0-32.9, adult; R73.9 Hyperglycemia, unspecified; Z88.8 Allergy status to other drugs, medicaments and biological substances
CPT/HCPCS: 36415; 71046; 80048; 80061; 83036; 83735; 85007; 85025; 85027; 86850; 86900; 88305; 88309; J0694; J1100; J1885; J2001; J2250; J2270; J2405; J7050

== ENCOUNTER → 2018-05-26 | Day surgery (SDC) | payer MEDICARE ==
[2018-05-23 15:22] LABS: BASOPHILS % 0.2 % (0.0-1.0); EOSINOPHILS # (AUTO) 0.2 (0.0-0.4); EOSINOPHILS % 2.3 % (0.0-6.0); HEMATOCRIT 45.5 % (38.2-49.6); HEMOGLOBIN 14.7 g/dL (14.0-18.0); LYMPHOCYTES # (AUTO) 2.9 (1.0-3.2); LYMPHOCYTES % 34.8 % (18.0-39.1); MEAN CORPUSCULAR HEMOGLOBIN 24.5 pg (28-32); MEAN CORPUSCULAR HGB CONC 32.3 g/dL (31-35); MEAN CORPUSCULAR VOLUME 75.8 fL (81-99); MONOCYTES # (AUTO) 1.1 (0.2-0.8); MONOCYTES % 13.4 % (4.4-11.3); NEUTROPHILS % 48.8 % (38.7-80.0); PLATELET COUNT 167 x10e3/uL (140-360); RED CELL DISTRIBUTION WIDTH 14.6 % (11.7-14.4)
[~2018-05-26] MED LIST changes: +COLACE100 M1 PO; +DEXAMETHASONE SOD PHOS INJ 4 MG/ML VIAL ONE; +HEPARIN SOD (PORCINE) 1000 UNIT/ML SDV ONE; +LIDOCAINE HCL 2% LOCAL INJ 5 ML SDV VIAL INJ ONE; +ONDANSETRON HCL INJ 2MG/ML 2ML 2 MG/ML VIAL ONE; +PEPCID20 MG PO; +PROPOFOL IV EMULSION 10 MG/ML 20 ML VIAL ONE; +SENNA LAXATIVE8.6 MG PO; +SEVOFLURANE INHAL SOLN 250 ML PEN BTL ONE; +SODIUM CHLORIDE 0.9% 100 ML ONE
--- NOTE | 2018-05-26 14:06 | Operative Report ---
DATE OF PROCEDURE: May 26, 2018 PREOPERATIVE DIAGNOSIS: Carcinoma of the colon with lymph node metastasis. POSTOPERATIVE DIAGNOSIS: Carcinoma of the colon with lymph node metastasis. PROCEDURE: Placement of left subclavian vein subcutaneous venous access port. DIGITAL MEDIA PLANNER: None. ANESTHESIA: General. INDICATIONS AND FINDINGS: The patient is an 83-year-old male who has carcinoma of the rectum who was to be treated with chemotherapy. At surgery, there are no abnormalities in the area of the port placement. Blood aspirated freely from the port at the end of the procedure. Tip of the catheter was seen to be in the superior vena cava. TECHNIQUE: After adequate general anesthesia with the patient in the supine position, the subclavian area was prepped and draped in a sterile fashion with ChloraPrep solution. Left subclavian vein was aspirated. J-wire introduced and passed easily without resistance. Position of the wire in the superior vena care was confirmed with fluoroscopy. Incision was then made in the deltopectoral groove with the wire exiting through the wound. A subcutaneous pocket was created in the inferior portion of the wound. Peel-away introducing sheath and dilator was passed over the guidewire, and the catheter which had been flushed with heparinized saline was passed through the sheath and positioned in the superior vena cava under fluoroscopy. Catheter was then cut to the appropriate length and connected to the subcutaneous port, which had also been flushed with heparinized saline. Port was then placed into the subcutaneous pocket and held in the pocket with sutures of 2-0 Ethibond. Entire port and catheter was inspected with fluoroscopy. There were no kinks. The catheter tip was seen to be in the superior vena cava. The wound was inspected for hemostasis, which was seen to be adequate. The wound was then closed with 3-0 Vicryl for the subcutaneous tissue and 4-0 Vicryl subcuticular to the skin. Port was accessed percutaneously with a Tobin needle. It was found to aspirate blood freely and then flushed with heparinized saline. The needle was removed. Dermabond was applied to the wound. The patient tolerated the procedure well. Estimated blood loss was less than 5 mL. There were no complications. All counts were correct. Patient was taken to the recovery room in satisfactory condition. Job#: [id number] ROSI
[2018-05-26 14:30] VITALS: BP 138/80
--- NOTE | 2018-05-26 15:12 | Diagnostic Imaging Report ---
Examination: Single AP view of the chest. COMPARISON: Chest radiograph 04/28/2018 INDICATION: Status post port placement DISCUSSION: Interval placement of a left subclavian approach central venous port catheter. The tip projects over the mid superior vena cava. No pneumothorax. Lungs are well-inflated and without focal consolidation or effusion. Stable cardiomediastinal contour with tortuosity and atherosclerotic calcification of the thoracic aorta. No acute osseous abnormalities. IMPRESSION: Interval placement of a left subclavian central venous port catheter, with the tip projecting over the mid superior vena cava. No pneumothorax. Clear lungs. Signed by: Dr. Gonzalez Amaro M.D. on 05/26/2018 3:09 PM
== END | disposition home or self-care (01) ==
LOC: OR 10:22
PROVIDERS: ATTEND Surgery
DX: C19 Malignant neoplasm of rectosigmoid junction (principal); Z01.810 Encounter for preprocedural cardiovascular examination; Z01.812 Encounter for preprocedural laboratory examination; Z01.811 Encounter for preprocedural respiratory examination; I10 Essential (primary) hypertension; K44.9 Diaphragmatic hernia without obstruction or gangrene; C77.9 Secondary and unspecified malignant neoplasm of lymph node, unspecified
CPT/HCPCS: 36415; 36561; 71045; 77001; 85025; C1751; J1100; J1644; J2001; J2405; J2704; J7050

== ENCOUNTER 2018-06-14 21:37 | Emergency (ER) | payer MEDICARE ==
[~2018-06-14] VITALS: Ht 208.3 cm; Wt 102.5 kg
[~2018-06-14 21:37] MED LIST changes: -DEXAMETHASONE SOD PHOS INJ 4 MG/ML VIAL ONE; -HEPARIN SOD (PORCINE) 1000 UNIT/ML SDV ONE; -LIDOCAINE HCL 2% LOCAL INJ 5 ML SDV VIAL INJ ONE; -ONDANSETRON HCL INJ 2MG/ML 2ML 2 MG/ML VIAL ONE; -PROPOFOL IV EMULSION 10 MG/ML 20 ML VIAL ONE; -SEVOFLURANE INHAL SOLN 250 ML PEN BTL ONE; -SODIUM CHLORIDE 0.9% 100 ML ONE
[2018-06-14] MEDS ORDERED: SODIUM CHLORIDE 0.9% 1000ML 1,000 ML IV ONE (23:15)
[2018-06-14] MEDS ORDERED: SODIUM CHLORIDE 0.9% 1000ML 1,000 ML ONE (23:19)
[2018-06-14 23:35] LABS: BASOPHILS % 0.3 % (0.0-1.0); EOSINOPHILS # (AUTO) 0.2 (0.0-0.4); EOSINOPHILS % 2.6 % (0.0-6.0); HEMATOCRIT 43.1 % (38.2-49.6); HEMOGLOBIN 13.9 g/dL (14.0-18.0); LYMPHOCYTES # (AUTO) 2.6 (1.0-3.2); LYMPHOCYTES % 34.9 % (18.0-39.1); MEAN CORPUSCULAR HEMOGLOBIN 24.8 pg (28-32); MEAN CORPUSCULAR HGB CONC 32.3 g/dL (31-35); MONOCYTES # (AUTO) 0.9 (0.2-0.8); MONOCYTES % 11.5 % (4.4-11.3); NEUTROPHILS # (AUTO) 3.7 (2.1-6.9); NEUTROPHILS % 50.3 % (38.7-80.0); PLATELET COUNT 140 x10e3/uL (140-360); RED CELL DISTRIBUTION WIDTH 15.1 % (11.7-14.4)
[2018-06-14 23:53] LABS: ALANINE AMINOTRANSFERASE 27 IU/L (0-55); ALBUMIN 3.4 g/dL (3.5-5.0); ALBUMIN/GLOBULIN RATIO 1.1 (0.8-2.0); ALKALINE PHOSPHATASE 108 IU/L (40-150); AMYLASE 67 U/L (25-125); ANION GAP 12.8 mmol/L (8-16); BLOOD UREA NITROGEN 15 mg/dL (7-26); BUN/CREATININE RATIO 14 (6-25); CALCIUM 9.5 mg/dL (8.4-10.2); CARBON DIOXIDE 29 mmol/L (22-29); CHLORIDE 98 mmol/L (98-107); CREATININE, SERUM 1.07 mg/dL (0.72-1.25); EST GLOMERULAR FILTRATION RATE > 60 ML/MIN (60-); GLUCOSE 109 mg/dL (74-118); LIPASE 51 U/L (8-78); MAGNESIUM 1.9 MG/DL (1.3-2.1); POTASSIUM 3.8 mmol/L (3.5-5.1); SODIUM 136 mmol/L (136-145)
[2018-06-15] MEDS ORDERED: IOPAMIDOL 370 MG/ML 200 ML INFUS..BTL INJ ONE (03:38)
[2018-06-15] MEDS ORDERED: SODIUM CHLORIDE 0.9% 50ML 50 ML ONE (03:38)
--- NOTE | 2018-06-15 04:48 | Diagnostic Imaging Report ---
EXAM: CT Abdomen and Pelvis WITH contrast INDICATION: Intermittent diarrhea. COMPARISON: CT abdomen and pelvis 04/22/2018 TECHNIQUE: Abdomen and pelvis were scanned utilizing a multidetector helical scanner from the lung base to the pubic symphysis after administration of IV contrast. Coronal and sagittal reformations were obtained. Routine protocol was performed. Scan was performed when during portal venous phase. IV CONTRAST: 100 mL of Isovue-370 ORAL CONTRAST: Water COMPLICATIONS: None RADIATION DOSE: Total DLP: 718.8 mGy*cm Estimated effective dose: (DLP x 0.015 x size factor) mSv CTDIvol has been reviewed. It is below the limits set by the Radiation Protocol Committee (RPC). FINDINGS: LINES and TUBES: None. LOWER THORAX: Previously noted 5 mm juxtapleural right lower lobe nodule is located more superior than the current scanned portions of the chest. HEPATOBILIARY: Hepatic steatosis. Stable right hepatic 1.8 cm cyst. Subtle hypoattenuating 0.8 cm lesion segment 4B (series 2 image 22), stable. Stable punctate hyperattenuating focus in segment 2 (series 2 image 17). No biliary ductal dilation. GALLBLADDER: No radio-opaque stones or sludge. No wall thickening. SPLEEN: No splenomegaly. PANCREAS: No focal masses or ductal dilatation. ADRENALS: No adrenal nodules KIDNEYS/URETERS: Kidneys enhance symmetrically. No hydronephrosis. No solid mass lesions. Tiny hypodensities bilateral kidneys are too small to characterize, statistically likely cysts. No stones. GI TRACT: Interval resection of the sigmoid colonic mass. Scattered colonic diverticula without evidence of diverticulitis. No abnormal distention, wall thickening, or evidence of bowel obstruction. Appendix is not clearly identified. There is however no fat stranding or adenopathy in the right lower quadrant to suggest appendicitis. PELVIC ORGANS/BLADDER: Prostate enlarged measuring 6.5 cm in transverse dimension. No focal bladder wall thickening. LYMPH NODES: Stable 1.2 cm lymph node along the inferior mesenteric artery chain (series 2 image 54). VESSELS: There is moderate atherosclerotic disease in the aorta and major arterial branches. PERITONEUM / RETROPERITONEUM: No free air or fluid. BONES: There are degenerative changes in the lumbar spine. SOFT TISSUES: Midline laparotomy scar. Bilateral fat-containing inguinal hernias. IMPRESSION: No acute abnormalities. Additional findings as above. Signed by: DR. Dhiraj Estevez MD on 06/15/2018 4:45 AM
[2018-06-15 05:20] VITALS: BP 129/74
== END 2018-06-15 05:15 | disposition home or self-care (01) ==
LOC: ER 22:07
DX: R19.7 Diarrhea, unspecified (principal); Z87.891 Personal history of nicotine dependence
CPT/HCPCS: 36415; 74177; 80053; 82150; 83605; 83690; 83735; 85025; 99283; J7030; Q9967

== ENCOUNTER 2018-06-29 12:20 | Emergency (ER) | payer MEDICARE ==
[~2018-06-29] VITALS: Ht 208.3 cm; Wt 102.5 kg
[2018-06-29 13:43] LABS: BASOPHILS % 0.1 % (0.0-1.0); EOSINOPHILS % 0.3 % (0.0-6.0); HEMATOCRIT 43.4 % (38.2-49.6); HEMOGLOBIN 13.6 g/dL (14.0-18.0); LYMPHOCYTES # (AUTO) 1.6 (1.0-3.2); LYMPHOCYTES % 23.7 % (18.0-39.1); MEAN CORPUSCULAR HEMOGLOBIN 24.4 pg (28-32); MEAN CORPUSCULAR HGB CONC 31.3 g/dL (31-35); MEAN CORPUSCULAR VOLUME 77.9 fL (81-99); MONOCYTES # (AUTO) 1.2 (0.2-0.8); MONOCYTES % 17.2 % (4.4-11.3); NEUTROPHILS # (AUTO) 3.9 (2.1-6.9); NEUTROPHILS % 58.3 % (38.7-80.0); PLATELET COUNT 111 x10e3/uL (140-360); RED BLOOD COUNT 5.57 x10e6/uL (4.3-5.7); RED CELL DISTRIBUTION WIDTH 17.1 % (11.7-14.4)
--- NOTE | 2018-06-29 13:56 | Diagnostic Imaging Report ---
Exam: Left ankle 3 views History: Pain Comparison: None. Findings: No acute fracture. Remote avulsion/ossification of the deltoid. Soft tissue swelling of the ankle. Impression: Soft tissue swelling of the ankle without acute fracture. Signed by: Dr. John Mullins M.D. on 06/29/2018 1:53 PM
[2018-06-29 14:03] LABS: ALANINE AMINOTRANSFERASE 22 IU/L (0-55); ALBUMIN 3.2 g/dL (3.5-5.0); ALBUMIN/GLOBULIN RATIO 0.9 (0.8-2.0); ALKALINE PHOSPHATASE 107 IU/L (40-150); ANION GAP 12.1 mmol/L (8-16); BLOOD UREA NITROGEN 12 mg/dL (7-26); BUN/CREATININE RATIO 13 (6-25); CALCIUM 9.2 mg/dL (8.4-10.2); CARBON DIOXIDE 31 mmol/L (22-29); CHLORIDE 97 mmol/L (98-107); CREATININE, SERUM 0.94 mg/dL (0.72-1.25); EST GLOMERULAR FILTRATION RATE > 60 ML/MIN (60-); GLUCOSE 133 mg/dL (74-118); POTASSIUM 3.1 mmol/L (3.5-5.1); SODIUM 137 mmol/L (136-145)
[2018-06-29 14:19] LABS: LYMPHOCYTES % (MANUAL) 23 % (19-48); MONOCYTES % (MANUAL) 15 % (3.4-9.0); NEUTROPHILS % (MANUAL) 62 % (40-74)
[2018-06-29 14:21] LABS: PLATELET ESTIMATE SLIGHTLY DECREASED; PLATELET MORPHOLOGY COMMENT NORMAL
[2018-06-29 14:22] LABS: RBC MORPHOLOGY COMMENT NORMAL; TOXIC GRANULATION SLIGHT
== END 2018-06-29 15:47 | disposition home or self-care (01) ==
LOC: ER 12:20
DX: M25.572 Pain in left ankle and joints of left foot (principal); L03.116 Cellulitis of left lower limb; M25.472 Effusion, left ankle; R26.2 Difficulty in walking, not elsewhere classified; I10 Essential (primary) hypertension; E78.5 Hyperlipidemia, unspecified; Z85.038 Personal history of other malignant neoplasm of large intestine; Z98.0 Intestinal bypass and anastomosis status
CPT/HCPCS: 36415; 80053; 84550; 85025; 99283

== ENCOUNTER 2018-07-30 14:13 | Emergency (ER) | payer MEDICARE ==
[~2018-07-30] VITALS: Ht 208.3 cm; Wt 102.5 kg
[2018-07-30] MEDS ORDERED: INDOMETHACIN 75 MG CAPCR PO ONE (15:00)
[2018-07-30 15:20] LABS: BASOPHILS % 0.5 % (0.0-1.0); EOSINOPHILS % 0.6 % (0.0-6.0); HEMATOCRIT 43.2 % (38.2-49.6); LYMPHOCYTES # (AUTO) 2.2 (1.0-3.2); LYMPHOCYTES % 34.6 % (18.0-39.1); MEAN CORPUSCULAR HEMOGLOBIN 25.5 pg (28-32); MEAN CORPUSCULAR HGB CONC 32.4 g/dL (31-35); MEAN CORPUSCULAR VOLUME 78.7 fL (81-99); MONOCYTES # (AUTO) 1.4 (0.2-0.8); MONOCYTES % 21.9 % (4.4-11.3); NEUTROPHILS # (AUTO) 2.6 (2.1-6.9); NEUTROPHILS % 41.3 % (38.7-80.0); PLATELET COUNT 136 x10e3/uL (140-360); RED BLOOD COUNT 5.49 x10e6/uL (4.3-5.7); RED CELL DISTRIBUTION WIDTH 19.9 % (11.7-14.4)
[2018-07-30 15:35] LABS: ALANINE AMINOTRANSFERASE 28 IU/L (0-55); ALBUMIN/GLOBULIN RATIO 0.8 (0.8-2.0); ALKALINE PHOSPHATASE 106 IU/L (40-150); ANION GAP 14.8 mmol/L (8-16); BLOOD UREA NITROGEN 15 mg/dL (7-26); BUN/CREATININE RATIO 18 (6-25); CALCIUM 9.3 mg/dL (8.4-10.2); CARBON DIOXIDE 24 mmol/L (22-29); CHLORIDE 97 mmol/L (98-107); CREATININE, SERUM 0.83 mg/dL (0.72-1.25); EST GLOMERULAR FILTRATION RATE > 60 ML/MIN (60-); GLUCOSE 103 mg/dL (74-118); POTASSIUM 3.8 mmol/L (3.5-5.1); SODIUM 132 mmol/L (136-145)
[2018-07-30] MEDS ORDERED: DICYCLOMINE HCL 20 MG/2 ML VIAL IM ONE (16:15)
[2018-07-30] MEDS ORDERED: ONDANSETRON HCL INJ 2MG/ML 2ML 2 MG/ML VIAL IV ONE (16:15)
[2018-07-30] MEDS ORDERED: SODIUM CHLORIDE 0.9% 1000ML 1,000 ML IV STA (16:15)
[2018-07-30] MEDS ORDERED: ONDANSETRON HCL INJ 2MG/ML 2ML 2 MG/ML VIAL IV STA (16:18)
[2018-07-30] MEDS ORDERED: ONDANSETRON HCL INJ 2MG/ML 2ML 2 MG/ML VIAL ONE (16:19)
[2018-07-30 16:35] LABS: CLARITY,URINE SL CLOUDY (CLEAR); COLOR,URINE YELLOW (YELLOW); KETONES,URINE NEGATIVE (NEGATIVE); LEUKOCYTE ESTERASE ,URINE NEGATIVE (NEGATIVE); NITRITE,URINE NEGATIVE (NEGATIVE); PROTEIN,URINE DIPSTICK NEGATIVE (NEGATIVE)
[2018-07-30 16:36] LABS: BILIRUBIN,URINE NEGATIVE (NEGATIVE); URINE UROBILINOGEN 0.2 mg/dL (0.2 - 1)
[2018-07-30 16:50] LABS: EPITHELIAL CELLS,URINE FEW /LPF; MUCUS,URINE MODERATE (RARE)
--- NOTE | 2018-07-30 17:36 | Diagnostic Imaging Report ---
EXAM: CT of the abdomen and pelvis WITH contrast HISTORY: r/o sbo divertic currently getting chemo for colon ca,, pain, nausea, chemotherapy, rule out small bowel obstruction COMPARISON: CT of the abdomen and pelvis June 15, 2018. TECHNIQUE: The abdomen and pelvis were scanned utilizing a multidetector helical scanner. Coronal and sagittal reformats are provided. PROTOCOL: Routine IV CONTRAST: 100 cc of Isovue-370. ORAL CONTRAST: None, which limits sensitivity and specificity of the exam. RADIATION DOSE: Total DLP: 725.4 mGy*cm Estimated effective dose: (DLP x 0.015 x size factor) Dose modulation, iterative reconstruction, and/or weight based adjustment of the mA/kV was utilized to reduce the radiation dose to as low as reasonably achievable. COMPLICATIONS: None FINDINGS: LINES and TUBES: None. LOWER THORAX: Stable 3 mm right lower lobe, slight granuloma abutting the pleural surface. Stable mild left prominent pleural adipose tissue. No effusion. HEPATOBILIARY: Hepatic steatosis. Stable right hepatic 2 cm cyst. The previously described subtle hypoattenuating lesion segment 4B is not visible on this exam. Stable punctate hyperattenuating focus in segment 2. No biliary ductal dilation. GALLBLADDER: 2 punctate calcifications near the neck of the gallbladder, likely small stones. No wall thickening. SPLEEN: No splenomegaly. PANCREAS: No focal masses or ductal dilatation. ADRENALS: No adrenal nodules KIDNEYS/URETERS: Kidneys enhance symmetrically. No hydronephrosis. No solid mass lesions. Stable small hypodensities bilateral kidneys are too small to characterize, statistically likely cysts. No stones. GI TRACT: Stable appearing sigmoid postsurgical changes. Scattered colonic diverticula without evidence of diverticulitis. No abnormal distention, wall thickening, or evidence of bowel obstruction. Appendix again is not clearly identified; however, there is no fat stranding or adenopathy in the right lower quadrant to suggest appendicitis. PELVIC ORGANS/BLADDER: Prostate enlarged measuring 6.5 cm in transverse dimension. No focal bladder wall thickening. LYMPH NODES: Decreased lymph node along the inferior mesenteric artery chain, 0.4 cm in short axis. VESSELS: Scattered atherosclerotic vascular calcifications, including the coronary arteries. PERITONEUM / RETROPERITONEUM: No free air or fluid. BONES: Multilevel degenerative changes, most notably the lumbar spine. SOFT TISSUES: Stable midline laparotomy scar. IMPRESSION: 1. Decreased size of the inferior mesenteric artery lymph node, now 0.4 cm. This may reflect response to the chemotherapy. 2. Stable sigmoid postsurgical changes. No evidence of bowel obstruction. 3. Stable punctate hyperattenuating focus within segment 2 of the liver. 4. No abscess. Signed by: Dr. Obed Polk D.O., M.M.M. on 07/30/2018 5:33 PM
[2018-07-30] MEDS ORDERED: SODIUM CHLORIDE 0.9% 500ML 500 ML ONE (17:51)
[2018-07-30] MEDS ORDERED: SODIUM CHLORIDE 0.9% 500ML 500 ML IV ONE (18:00)
[2018-07-30 18:35] VITALS: BP 149/81
[2018-07-30] MEDS ORDERED: IOPAMIDOL 370 MG/ML 200 ML INFUS..BTL INJ ONE (22:40)
[2018-07-30] MEDS ORDERED: SODIUM CHLORIDE 0.9% 50ML 50 ML ONE (22:40)
== END 2018-07-30 18:39 | disposition home or self-care (01) ==
LOC: ER 14:13
DX: M25.572 Pain in left ankle and joints of left foot (principal); L03.116 Cellulitis of left lower limb; M25.472 Effusion, left ankle; R11.0 Nausea; R10.9 Unspecified abdominal pain; I10 Essential (primary) hypertension; D75.1 Secondary polycythemia; Z85.038 Personal history of other malignant neoplasm of large intestine
CPT/HCPCS: 36415; 74177; 80053; 81001; 84550; 85025; 99284; J0500; J2405; J7040; Q9967

== ENCOUNTER → 2018-12-12 | Outpatient (CLI) | payer MEDICARE ==
--- NOTE | 2018-12-12 13:40 | Diagnostic Imaging Report ---
EXAM: Right upper quadrant abdominal ultrasound INDICATION: Colon cancer status post resection and chemotherapy COMPARISON: Abdomen and pelvis CT of 07/30/2018 TECHNIQUE: Transverse and longitudinal images of the right upper quadrant abdomen were obtained FINDINGS: Liver: Size: 14.7 cm in the right midclavicular line, normal Appearance: Normal echogenicity, smooth contour Mass: 2.1 x 2.0 x 2.1 cm right hepatic simple cyst. Gallbladder: Multiple small gallstones. No gallbladder distension, pericholecystic fluid, wall thickening, or reported sonographic Brantley's sign. Gallbladder wall measures 0.2 cm. Bile Ducts: Intrahepatic Ducts: No dilatation Extrahepatic Ducts: Common bile duct measures 0.5cm, no dilatation Pancreas: Visualized portions of the pancreatic head, neck and proximal body are normal. Kidney: The right kidney measures 11.1 cm without evidence of hydronephrosis or stone. 1.3 x 1.2 x 1.1 cm right lower pole simple cyst. Vessels: Aorta: Visualized portions are normal Inferior Vena Cava: Visualized portions are normal Main Portal Vein: 1.2 cm, normal size with hepatopetal flow. Free Fluid: No ascites or pleural effusion IMPRESSION: Right hepatic simple cyst. No other focal liver lesions. Cholelithiasis without sonographic evidence of cholecystitis. Right lower pole simple renal cyst. Signed by: Dylan Fisher MD on 12/12/2018 1:37 PM
== END ==
LOC: US 10:52
PROVIDERS: ATTEND Internal Medicine Medical Oncology
DX: Z85.038 Personal history of other malignant neoplasm of large intestine (principal); N28.1 Cyst of kidney, acquired; Z98.0 Intestinal bypass and anastomosis status
CPT/HCPCS: 76705

== ENCOUNTER → 2019-08-13 | Day surgery (SDC) | payer MEDICARE, OTHER ==
[2019-08-10 09:13] LABS: BASOPHILS % 0.3 % (0.0-1.0); EOSINOPHILS # (AUTO) 0.2 (0.0-0.4); EOSINOPHILS % 2.2 % (0.0-6.0); HEMATOCRIT 50.7 % (38.2-49.6); LYMPHOCYTES # (AUTO) 1.9 (1.0-3.2); LYMPHOCYTES % 28.1 % (18.0-39.1); MEAN CORPUSCULAR HEMOGLOBIN 28.9 pg (28-32); MEAN CORPUSCULAR HGB CONC 33.5 g/dL (31-35); MEAN CORPUSCULAR VOLUME 86.2 fL (81-99); MONOCYTES # (AUTO) 0.9 (0.2-0.8); MONOCYTES % 12.6 % (4.4-11.3); NEUTROPHILS # (AUTO) 3.9 (2.1-6.9); NEUTROPHILS % 56.4 % (38.7-80.0); PLATELET COUNT 112 x10e3/uL (140-360); RED BLOOD COUNT 5.88 x10e6/uL (4.3-5.7); RED CELL DISTRIBUTION WIDTH 13.8 % (11.7-14.4)
[2019-08-10 09:31] LABS: ANION GAP 12.9 mmol/L (8-16); BLOOD UREA NITROGEN 15 mg/dL (7-26); BUN/CREATININE RATIO 14 (6-25); CALCIUM 10.1 mg/dL (8.4-10.2); CARBON DIOXIDE 30 mmol/L (22-29); CHLORIDE 102 mmol/L (98-107); CREATININE, SERUM 1.06 mg/dL (0.72-1.25); EST GLOMERULAR FILTRATION RATE > 60 ML/MIN (60-); GLUCOSE 123 mg/dL (74-118); POTASSIUM 4.9 mmol/L (3.5-5.1); SODIUM 140 mmol/L (136-145)
--- NOTE | 2019-08-10 10:14 | Diagnostic Imaging Report ---
EXAMINATION: CHEST 2 VIEWS INDICATION: Pre-operative COMPARISON: Chest radiograph of 05/26/2018 FINDINGS: LINES/TUBES:Left chest port terminates in the superior vena cava. LUNGS:The lungs are well-inflated. There is a 4.2 cm mass in the right lower lobe as well as several smaller pulmonary nodules measuring up to 11 mm on the right and 15 mm on the left. These are new compared to the prior chest are graft of 05/26/2018. PLEURA:No pleural effusion or pneumothorax. MEDIASTINUM:The cardiomediastinal silhouette appears normal in size and shape. Atherosclerotic calcifications of the thoracic aorta. BONES/SOFT TISSUES:No acute osseous injury. ABDOMEN:No free air under the diaphragm. IMPRESSION: New 4.2 cm right lower lobe mass and smaller bilateral pulmonary nodules measuring up to 11 mm on the right and 15 mm on the left. Findings are concerning for primary versus metastatic disease. Recommend contrast-enhanced chest CT for further evaluation. No focal pneumonia or pulmonary edema. Signed by: Dylan Fisher MD on 08/10/2019 10:10 AM
[2019-08-10 11:26] LABS: PLATELET ESTIMATE SLIGHTLY DECREASED; PLATELET MORPHOLOGY COMMENT RARE EDTA CLUMPING; RBC MORPHOLOGY COMMENT NORMAL
[~2019-08-13] MED LIST changes: +ASPIR 8181 MG PO; +CEFAZOLIN SOD 1 GM/NS 50ML 50 ML IV ONE; +FENTANYL CITRATE/PF 100MCG/2 ML INJ ONE; +LIDOCAINE HCL 1% LOCAL INJ 20 ML VIAL ONE; +LIDOCAINE HCL 2% LOCAL INJ 5 ML SDV VIAL INJ ONE; +LYRICA50 MG PO; +MIDAZOLAM HCL 2 MG/2 ML VIAL ONE; +PROPOFOL IV EMULSION 10 MG/ML 20 ML VIAL ONE; +SUPER B-COMPL400 MCG
[2019-08-13 10:10] VITALS: BP 134/76
--- OUTSIDE RECORDS SUMMARY | 2019-08-25 10:59 | XMS REPORT ---
Author Author [facility] t Organization [facility] Address [address] [facility] [address] [place] [address] Phone Unavailable Care Team Providers Care Correction Officer Head Name Role Phone ARTEMIO VALERO DO PCP LUBNA BURGOS Unavailable STEPHANIE GILLESPIE Attphys Unavailable Oma CHAVARRIA Attphys Unavailable Saskia LUNA Attphys Unavailable Radha DUMONT Attphys Unavailable CESAR MATHEW Attphys Unavailable LUBNA GARCIA Attphys Unavailable ELA PERRY Attphys Unavailable LAURI, DARNELL Admphys Unavailable Payers Payer Name Policy Type Policy Number Effective Date Expiration Date Radha ross Medicare A & B [id number] 2001 00:00:00 C Formerly [facility] AAR [id number] [facility] Medicare A & B [id number] 2001 00:00:00 C Formerly [facility] AAR [id number] [facility] Medicare A & B [id number] 2001 00:00:00 C Formerly [facility] AAR [id number] [facility] Medicare A & B [id number] 2001 00:00:00 C Formerly [facility] AAR [id number] [facility] Medicare A & B [id number] 2001 00:00:00 C [facility]ly [facility] AAR [id number] [facility] Problems Condition Name Condition Details Condition Category Status Onset Date Resolution Date Last Treatment Date Treating Clinician Comments Source Lower gastrointestinal hemorrhage LGI bleed Problem Active [facility] Left knee pain Left knee pain Problem Active [facility] Allergies, Adverse Reactions, Alerts Allergy Name Allergy Type Status Severity Reaction(s) Onset Date Inacti ve Date Treating Clinician Comments Source Simvastatin Allergy to Substance Active Unknown 2018-05-26 00:00:0 0 [facility] Atorvastatin Allergy to Substance Active Unknown 2018-05-01 00:00: 00 [facility] No Known Allergies DA Active U 2018-04-17 00:00:00 [facility] No Known Drug Intolerances DA Active U 2008-09-19 00:00:0 0 [facility] Not Converted 80. See Text. DA Active U 2008-09-19 00:00 :00 [facility] No Known Contrast Allergies DA Active U 2008-08-23 00:00: 00 [facility] No Known Drug Allergies DA Active U 2008-08-23 00:00:00 [facility] No Known Food Allergies DA Active U 2008-08-23 00:00:00 [facility] No Known Other Allergies DA Active U 2008-08-23 00:00:00 [facility] Medications Ordered Medication Name Filled Medication Name Start Date Stop Da te Current Medication? Ordering Clinician Indication Dosage Frequency Signature (SIG) Comments Components Source Docusate Sodium (Colace) 100 Mg Capsule Docusate Sodium (Col carol) 100 Mg Capsule 2018-05-06 00:00:00 Yes Hudson Regalado Md 100 Every 12 H ours [facility] Famotidine (Pepcid) 20 Mg Tablet Famotidine (Pepcid) 20 Mg T ablet 2018-05-06 00:00:00 Yes Hudson Regalado Md 20 Twice A Day [facility] Sennosides (Senna Laxative) 8.6 Mg Tablet Sennosides ( Senna Laxative) 8.6 Mg Tablet 2018-05-06 00:00:00 Yes Hudson Regalado Md 8.36 Daily [facility] Aspirin 325 Mg Tablet, 325 Mg Oral Aspirin 325 Mg Tablet, 32 5 Mg Oral 2017-03-12 00:00:00 2018-05-06 00:00:00 No Simone Zapata 325 Twice A Day [facility] Amlodipine Besylate (Norvasc) 5 Mg Tab Amlodipine Besylate (Norv asc) 5 Mg Tab Yes 5 Daily [facility] Aspirin 325 Mg Tablet Aspirin 325 Mg Tablet Yes 325 Daily [facility] Atenolol 50 Mg Tablet Atenolol 50 Mg Tablet Yes Daily [facility] Hydrochlorothiazide 25 Mg Tablet Hydrochlorothiazide 25 Mg Tablet Yes 25 Daily [facility] Atenolol (Tenormin) 25 Mg Tablet, 25 Mg Oral Atenolol (Tenormin) 25 Mg Tablet, 25 Mg Oral 2018-04-28 00:00:00 No 25 Daily [facility] Hydrocodone Bit/Acetaminophen (Hydrocodo n-Acetaminoph 7.5-325) 1 Each Tablet, 7.5-325 Mg Oral Hydrocodone Bit/Acetaminophen (Hydrocodo n-Acetaminoph 7.5-325) 1 Each Tablet, 7.5-325 Mg Oral 2018-03-05 00:00:00 No Every 4 Hours as needed for Pain [facility] Aspirin 325 Mg Tablet, 325 Mg Oral Aspirin 325 Mg Tablet, 325 Mg Oral 2017-03-12 00:00:00 No 325 Daily [facility] Hctz , Hctz , 2017-03-11 00:00:00 No [facility] Norvasc , Norvasc , 2017-03-11 00:00:00 [facility] Tenormin , Tenormin , 2017-03-11 00:00:00 [facility] Procedures Procedure Date / Time Performed Performing Clinician Joanne darien Computed tomography of abdomen and pelvis with contrast 2018 00:00:00 EDER STOVER [facility] Computed tomography of abdomen and pelvis with contrast 2018 00:00:00 WALT DUMONT [facility] INSERT TUNNELED CV CATH 2018-05-26 00:00:00 LUBNA BURGOS [facility] RESECTION OF SIGMOID COLON, OPEN APPROACH 2018-05-01 00:00:00 LUBNA STALEY [facility] X-ray of chest, two views 2018-04-28 00:00:00 LUBNA BURGOS CH [facility] Computed tomography of abdomen and pelvis with contrast 2018 00:00:00 CESAR MATHEW [facility] Encounters Start Date/Time End Date/Time Encounter Type Admission Type Att[facility] Care Department Encounter ID Source 2018-07-30 14:13:00 2018-07-30 18:39:00 Departed Emergency Room 1 ANUPAM CHAVARRIA [facility] [id number] [facility] 2018-06-29 12:20:00 2018-06-29 15:47:00 Departed Emergency Room 1 ELA LUNA [facility] [id number] [facility] 2018-06-14 22:07:00 2018-06-15 05:15:00 Departed Emergency Room 1 WALT DUMONT [facility] [id number] [facility] 2018-05-26 10:22:00 2018-05-26 10:22:00 Registered Surgical Day Car e 3 LUBNA BURGOS [facility] [id number] [facility] 2018-05-01 15:38:00 2018-05-06 13:13:00 Discharged Inpatient 3 LUBNA BURGOS [facility] [id number] [facility] 2018-04-22 07:22:00 2018-04-22 07:22:00 Registered Clinic 3 CESAR MATHEW [facility] [id number] [facility] 2018-03-05 08:55:00 2018-03-05 18:09:00 Discharged Inpatient (obs) [facility] [id number] [facility] Results Test Description Test Time Test Comments Results Result Comments Source CHEST 2 VIEWS 2019-08-10 10:07:00 [place] [address] Patient Name: YAKOV ARTHUR MR #: [id number] : 1935 Age/Sex: 84/M Req #: [id number] Adm Physician: Ordered by: LUBNA BURGOS MD Report #: [id number] Location: OR Room/Bed: Procedure: [id number] DX/CHEST 2 VIEWS Exam Date: 08/10/19 Exam Time: 08 REPORT STATUS: Signed EXAMINATION: CHEST 2 VIEWS INDICATION: Pre-operative COMPARISON: Chest radiograph of 05/26/2018 FINDINGS: LINES/TUBES:Left chest port terminates in the superior vena cava. LUNGS:The lungs are well-inflated. There is a 4.2 cm mass in the rig ht lower lobe as well as several smaller pulmonary nodules measuring up to 11 mm on the right and 15 mm on the left. These are new compared to the prior chest are graft of 05/26/2018. PLEURA:No pleural effusion or pneumothorax. MEDIASTINUM:The cardiomediastinal silhouette appears normal in size and shape. Atherosclerotic calcifications of the thoracic aorta. BONES/SOFT TISSUES:No acute osseous injury. ABDOMEN:No free air under the diaphragm. IMPRESSION: New 4.2 cm right lower lobe mass and smaller bilateral pulmonary nodules measuring up to 11 mm on the right and 15 mm on the left. Findings are concerning for primary versus metastatic disease. Recommend contrast-enhanced chest CT for further evaluation. No focal pneumonia or pulmonary edema. Signed by: Orion Amanda MD on 08/10/2019 10:10 AM Dictated By: ORION AMANDA MD 1010 Transcribed By: HORTENCIA on 08/10/19 1010 COPY TO: LUBNA BURGOS MD LIVER 2018-12-12 13:34:00 [place] [address] Patient Name: YAKOV ARTHUR MR #: [id number] : 1935 Age/Sex: 83/M Req #: [id number] Adm Physician: Ordered by: STEPHANIE GILLESPIE MD Report #: [id number] Location: Room/Bed: Procedure: / LIVER Exam Date: 12/12/18 Exam Time: 1119 REPORT STATUS: Signed EXAM: Right upper quadrant abdominal ultrasound INDICATION: Colon cancer status post resection and chemotherapy COMPARISON: Abdomen and pelvis CT of 07/30/2018 TECHNIQUE: Transverse and longitudinal images of the right upper quadrant abdomen were obtained FINDINGS: Liver: Size: 14.7 cm in the right midclavicular line, normal Appearance: Normal echogenicity, smooth contour Mass: 2.1 x 2.0 x 2.1 cm right hepatic simple cyst. Gallbladder: Multiple small gallstones. No gallbladder distension, pericholecystic fluid, wall thickening, or reported sonographic Brantley's sign. Gallbladder wall measures 0.2 cm. Bile Ducts: In trahepatic Ducts: No dilatation Extrahepatic Ducts: Common bile duct measures 0.5cm, no dilatation Pancreas: Visualized portions of the pancreatic head, neck and proximal body are normal. Kidney: The right kidney measures 11.1 cm without evidence of hydronephrosis or stone. 1.3 x 1.2 x 1.1 cm right lower pole simple cyst. Vessels: Aorta: Visualized portions are normal Inferior Vena Cava: Visualized portions are normal Main Portal Vein: 1.2 cm, normal size with hepatopetal flow. Free Fluid: No ascites or pleural effusion IMPRESSION: Right hepatic simple cyst. No other focal liver lesions. Cholelithiasis without sonographic evidence of cholecystitis. Right lower pole simple renal cyst. Signed by: Orion Amanda MD on 12/12/2018 1:37 PM Dictated By: ORION AMANDA MD 1337 Transcribed By: HORTENCIA on 12/12/18 1337 COPY TO: STEPHANIE GILLESPIE MD CT ABDOMEN/PELVIS W 2018-07-30 17:21:00 [place] [address] Patient Name: YAKOV ARTHUR MR #: [id number] : 1935 Age/Sex: 83/M Req #: [id number] Adm Physician: Ordered by: EDER STOVER NP Report #: [id number] Location: ER Room/Bed: Procedure: [id number] CT/CT ABDOMEN/PELVIS W Exam Date: 07/30/18 Exam Time: 1645 REPORT STATUS: Signed EXAM: CT of the abdomen and pelvis WITH contrast HISTORY: r/o sbo divertic currently getting chemo for colon ca,, pain, nausea, chemotherapy, rule out small bowel obstruction COMPARISON: CT of the abdomen and pelvis June 15, 2018. TECHNIQUE: The abdomen and pelvis were scanned utilizing a multidetector helical scanner. Coronal and sagittal reformats are provided. PROTOCOL: Routine IV CONTRAST: 100 cc of Isovue-370. ORAL CONTRAST: None, which limits sensitivity and specificity of the exam. RADIATION DOSE: Total DLP: 725.4 mGy*cm Estimated ef fective dose: (DLP x 0.015 x size factor) Dose modulation, iterative reconstruction, and/or weight based adjustment of the mA/kV was utilized to reduce the radiation dose to as low as reasonably achievable. COMPLICATIONS: None FINDINGS: LINES and TUBES: None. LOWER THORAX: Stable 3 mm right lower lobe, slight granuloma abutting the pleural surface. Stable mild left prominent pleural adipose tissue. No effusion. HEPATOBILIARY: Hepatic steatosis. Stable right hepatic 2 cm cyst. The previously described subtle hypoattenuating lesion segment 4B is not visible on this exam. Stable punctate hyperattenuating focus in segment 2. No biliary ductal dilation. GALLBLADDER: 2 punctate calcifications near the neck of the gallbladder, likely small stones. No wall thickening. SPLEEN: No splenomegaly. PANCREAS: No focal masses or ductal dilatation. ADRENALS: No adrenal nodules KIDNEYS/URETERS: Kidneys enhance s ymmetrically. No hydronephrosis. No solid mass lesions. Stable small hypodensities bilateral kidneys are too small to characterize, statistically likely cysts. No stones. GI TRACT: Stable appearing sigmoid postsurgical changes. Scattered colonic diverticula without evidence of diverticulitis. No abnormal distention, wall thickening, or evidence of bowel obstruction. Appendix again is not clearly identified; however, there is no fat stranding or adenopathy in the right lower quadrant to suggest appendicitis. PELVIC ORGANS/BLADDER: Prostate enlarged measuring 6.5 cm in transverse dimension. No focal bladder wall thickening. LYMPH NODES: Decreased lymph node along the inferior mesenteric artery chain, 0.4 cm in short axis. VESSELS: Scattered atherosclerotic vascular calcifications, including the coronary arteries. PERITONEUM / RETROPERITONEUM: No free air or fluid. BONES: Multilevel degenerative changes, most notably the lumbar spine. SOFT TISSUES: Stable midline laparotomy scar. IMPRESSION: 1. Decreased size of the inferior mesenteric artery lymph node, now 0.4 cm. This may reflect response to the chemotherapy. 2. Stable sigmoid postsurgical changes. No evidence of bowel obstruction. 3. Stable punctate hyperattenuating focus within segment 2 of the liver. 4. No abscess. Signed by: Dr. Obed Espinoza D.O., M.M.M. on 07/30/2018 5:33 PM Dictated By: OBED ESPINOZA DO 32 Transcribed By: HORTENCIA on 07/30/181732 COPY TO: EDER STOVER SEASONAL CLERK Urine WBC 2018-07-30 16:50:00 Test Item Urine WBC (test code = 5821-4) NONE 0-5 [facility] [id number] 16:50:00* Test Item Value Reference Range Interpretation Comments Urine RBC (test code = 61140-0) NONE 0-5 [facility] [id number] 16:50:00* Test Item Value Reference Range Interpretation Comments Urine Bacteria (test code = 53497-1) NONE NONE [facility] Epithelial [id number] 16:50:00 * Test Item Value Reference Range Interpretation Comments Urine Epithelial Cells (test code = 10031-0) FEW NONE [facility] [id number] 16:50:00* Test Item Value Reference Range Interpretation Comments Urine Mucus (test code = 8247-9) MODERATE RARE [facility] [id number] 16:36:00* Test Item Value Reference Range Interpretation Comments Urine Color (test code = 5778-6) YELLOW YELLOW [facility] [id number] 16:36:00* Test Item Value Reference Range Interpretation Comments Urine Clarity (test code = 88292-0) SL CLOUDY CLEAR [facility] Specific Aqguomv4221-29-51 16:36:00 * Test Item Value Reference Range Interpretation Comments Urine Specific Christoval (test code = 5811-5) 1.025 1.010-1.02 5 [facility] [id number] 16:36:00* Test Item Value Reference Range Interpretation Comments Urine pH (test code = 15325-4) 6 5-7 [facility] Leukocyte Nvptuykh6044-10-55 16:36:00* Test Item Value Reference Range Interpretation Comments Urine Leukocyte Esterase (test code = 5799-2) NEGATIVE NEGATIVE [facility] Xjctgsh8430-03-38 16:36:00* Test Item Value Reference Range Interpretation Comments Urine Nitrite (test code = 05019-1) NEGATIVE NEGATIVE [facility] Jfaxlsq5445-59-42 16:36:00* Test Item Value Reference Range Interpretation Comments Urine Protein (test code = 5804-0) NEGATIVE NEGATIVE [facility] Glucose (UA)2018-07-30 16:36:00* Test Item Value Reference Range Interpretation Comments Urine Glucose (UA) (test code = 2349-9) NEGATIVE NEGATIVE [facility] [id number] 16:36:00* Test Item Value Reference Range Interpretation Comments Urine Ketones (test code = 17979-2) NEGATIVE NEGATIVE [facility] Rbmnpqmebrfq8426-57-36 16:36:00* Test Item Value Reference Range Interpretation Comments Urine Urobilinogen (test code = 77708-7) 0.2 0.2-1 [facility] Campus[facility] Sosrroxny8088-80-32 16:36:00* Test Item Value Reference Range Interpretation Comments Urine Bilirubin (test code = 1978-6) NEGATIVE NEGATIVE [facility] Campus[facility] Rqdia7542-06-84 16:36:00* Test Item Value Reference Range Interpretation Comments Urine Blood (test code = 64070-0) NEGATIVE NEGATIVE [facility] CampusUric Ygaf3318-08-81 15:54:00* Test Item Value Reference Range Interpretation Comments Uric Acid (test code = 3084-1) 4.8 4.8-8.0 [facility] Psnve1307-10-54 15:37:00* Test Item Value Reference Range Interpretation Comments Sodium Level (test code = 2951-2) 132 136-145 [facility] CampusPotassium Ozdki9987-14-85 15:37:00* Test Item Value Reference Range Interpretation Comments Potassium Level (test code = 2823-3) 3.8 3.5-5.1 [facility] CampusChloride Nnhuq0461-22-55 15:37:00* Test Item Value Reference Range Interpretation Comments Chloride Level (test code = 2075-0) 97 98-107 [facility] CampusCarbon Dioxide Ckjtw7154-92-63 15:37:00* Test Item Value Reference Range Interpretation Comments Carbon Dioxide Level (test code = 2028-9) 24 22-29 [facility] CampusAnion Rzg0592-02-11 15:37:00* Test Item Value Reference Range Interpretation Comments Anion Gap (test code = 82062-7) 14.8 8-16 [facility] CampusBlood Urea Uehlhppc7632-87-76 15:37:00* Test Item Value Reference Range Interpretation Comments Blood Urea Nitrogen (test code = 3094-0) 15 7-26 [facility] CampusCreatinine2019-04-24 15:37:00* Test Item Value Reference Range Interpretation Comments Creatinine (test code = 2160-0) 0.83 0.72-1.25 [facility] CampusBUN/Creatinine Meozx0811-84-14 15:37:00* Test Item Value Reference Range Interpretation Comments BUN/Creatinine Ratio (test code = 3097-3) 18 6- [facility] CampusEstimat Glomerular Filtration Rate 2018-07-30 15:37:00* Test Item Value Reference Range Interpretation Comments Estimat Glomerular Filtration Rate (test code = 534251325) > 60 >60 Ranges were taken from the National Kidney Disease Education Program and the [facility] Kidney Foundation literature.Reference ranges:60 or greater: Ztzjlf62-10 ( for 3 consecutive months): Chronic kidney disease 15 or less: Kidney failureThe [facility] CampusGlucose Zarlg1700-45-19 15:37:00* Test Item Value Reference Range Interpretation Comments Glucose Level (test code = ELP1927) 103 74-118 [facility] CampusCalcium Gijck0842-64-33 15:37:00* Test Item Value Reference Range Interpretation Comments Calcium Level (test code = 55498-7) 9.3 8.4-10.2 [facility] CampusTotal Knfbhppkf8722-00-33 15:37:00* Test Item Value Reference Range Interpretation Comments Total Bilirubin (test code = 1975-2) 0.7 0.2-1.2 [facility] CampusAspartate Amino Transf (AST/SGOT) 2018-07-30 15:37:00* Test Item Value Reference Range Interpretation Comments Aspartate Amino Transf (AST/SGOT) (test code = Aspartate Amino Transf (AST/SGOT)) 32 5-34 [facility] CampusAlanine Aminotransferase (ALT/SGPT) 2018-07-30 15:37:00* Test Item Value Reference Range Interpretation Comments Alanine Aminotransferase (ALT/SGPT) (test code = 1742-6) 28 0-55 [facility] CampusTotal Qdwloqm6930-02-23 15:37:00* Test Item Value Reference Range Interpretation Comments Total Protein (test code = 2885-2) 7.0 6.5-8.1 [facility] CampusAlbumin2019-04-24 15:37:00* Test Item Value Reference Range Interpretation Comments Albumin (test code = 1751-7) 3.0 3.5-5.0 [facility] CampusGlobulin2019-04-24 15:37:00* Test Item Value Reference Range Interpretation Comments Globulin (test code = 09366-9) 4.0 2.3-3.5 [facility] CampusAlbumin/Globulin Hnhvf0479-07-26 15:37:00 * Test Item Value Reference Range Interpretation Comments Albumin/Globulin Ratio (test code = 1759-0) 0.8 0.8-2.0 [facility] CampusAlkaline Lbbhufpcsed4071-02-87 15:37:00* Test Item Value Reference Range Interpretation Comments Alkaline Phosphatase (test code = 6768-6) 106 40-150 [facility] CampusWhite Blood Nnflr8043-08-00 15:26:00* Test Item Value Reference Range Interpretation Comments White Blood Count (test code = 6690-2) 6.22 4.8-10.8 [facility] CampusRed Blood Frrxy8288-01-48 15:26:00* Test Item Value Reference Range Interpretation Comments Red Blood Count (test code = 789-8) 5.49 4.3-5.7 [facility] CampusHemoglobin2019-04-24 15:26:00* Test Item Value Reference Range Interpretation Comments Hemoglobin (test code = 04036-8) 14.0 14.0-18.0 [facility] CampusHematocrit2019-04-24 15:26:00* Test Item Value Reference Range Interpretation Comments Hematocrit (test code = 4544-3) 43.2 38.2-49.6 [facility] CampusMean Corpuscular Oyocqy8743-71-51 15:26:00* Test Item Value Reference Range Interpretation Comments Mean Corpuscular Volume (test code = 787-2) 78.7 81-99 [facility] CampusMean Corpuscular Iqeihpsmwn3893-49-82 15:26:00* Test Item Value Reference Range Interpretation Comments Mean Corpuscular Hemoglobin (test code = 785-6) 25.5 28-32 [facility] CampusMean Corpuscular Hemoglobin Concent 2018-07-30 15:26:00* Test Item Value Reference Range Interpretation Comments Mean Corpuscular Hemoglobin Concent (test code = 786-4) 32.4 31-35 [facility] CampusRed Cell Distribution Guiww3442-97-00 15:26:00* Test Item Value Reference Range Interpretation Comments Red Cell Distribution Width (test code = 48395-7) 19.9 11.7 -14.4 [facility] CampusPlatelet Qtykc7635-54-37 15:26:00* Test Item Value Reference Range Interpretation Comments Platelet Count (test code = 777-3) 136 140-360 [facility] CampusNeutrophils (%) (Auto)2018-07-30 15:26:00 * Test Item Value Reference Range Interpretation Comments Neutrophils (%) (Auto) (test code = 87939-8) 41.3 38.7-80.0 [facility] CampusLymphocytes (%) (Auto)2018-07-30 15:26:00 * Test Item Value Reference Range Interpretation Comments Lymphocytes (%) (Auto) (test code = 736-9) 34.6 18.0-39.1 [facility] CampusMonocytes (%) (Auto)2018-07-30 15:26:00* Test Item Value Reference Range Interpretation Comments Monocytes (%) (Auto) (test code = 5905-5) 21.9 4.4-11.3 [facility] CampusEosinophils (%) (Auto)2018-07-30 15:26:00 * Test Item Value Reference Range Interpretation Comments Eosinophils (%) (Auto) (test code = 713-8) 0.6 0.0-6.0 [facility] CampusBasophils (%) (Auto)2018-07-30 15:26:00* Test Item Value Reference Range Interpretation Comments Basophils (%) (Auto) (test code = 706-2) 0.5 0.0-1.0 [facility] CampusIM GRANULOCYTES %2018-07-30 15:26:00* Test Item Value Reference Range Interpretation Comments IM GRANULOCYTES % (test code = IM GRANULOCYTES %) 1.1 0.0- 1.0 [facility] CampusNeutrophils # (Auto)2018-07-30 15:26:00* Test Item Value Reference Range Interpretation Comments Neutrophils # (Auto) (test code = 751-8) 2.6 2.1-6.9 [facility] CampusLymphocytes # (Auto)2018-07-30 15:26:00* Test Item Value Reference Range Interpretation Comments Lymphocytes # (Auto) (test code = 45494-4) 2.2 1.0-3.2 [facility] CampusMonocytes # (Auto)2018-07-30 15:26:00* Test Item Value Reference Range Interpretation Comments Monocytes # (Auto) (test code = 742-7) 1.4 0.2-0.8 [facility] CampusEosinophils # (Auto)2018-07-30 15:26:00* Test Item Value Reference Range Interpretation Comments Eosinophils # (Auto) (test code = 711-2) 0.0 0.0-0.4 [facility] CampusBasophils # (Auto)2018-07-30 15:26:00* Test Item Value Reference Range Interpretation Comments Basophils # (Auto) (test code = 704-7) 0.0 0.0-0.1 [facility] CampusAbsolute Immature Granulocyte (auto 2018-07-30 15:26:00* Test Item Value Reference Range Interpretation Comments Absolute Immature Granulocyte (auto (angie t code = Absolute Immature Granulocyte (auto) 0.07 0-0.1 [facility] CampusDifferential Total Cells Counted 2018-06-29 14:22:00* Test Item Value Reference Range Interpretation Comments Differential Total Cells Counted (test code = Differen tial Total Cells Counted) 100 [facility] CampusNeutrophils % (Manual)2018-06-29 14:22:00 * Test Item Value Reference Range Interpretation Comments Neutrophils % (Manual) (test code = 49739-9) 62 40-74 [facility] CampusLymphocytes % (Manual)2018-06-29 14:22:00 * Test Item Value Reference Range Interpretation Comments Lymphocytes % (Manual) (test code = 737-7) 23 19-48 [facility] CampusMonocytes % (Manual)2018-06-29 14:22:00* Test Item Value Reference Range Interpretation Comments Monocytes % (Manual) (test code = 744-3) 15 3.4-9.0 [facility] CampusPlatelet Axvzrxuo3765-87-45 14:22:00* Test Item Value Reference Range Interpretation Comments Platelet Estimate (test code = 52736-1) SLIGHTLY DECREASED [facility] CampusPlatelet Morphology Mbcuxfu2642-74-72 14:22:00* Test Item Value Reference Range Interpretation Comments Platelet Morphology Comment (test code = 21460-1) NORMAL [facility] CampusToxic Vjhpbqesenr3655-35-86 14:22:00* Test Item Value Reference Range Interpretation Comments Toxic Granulation (test code = 803-7) SLIGHT [facility] CampusRed Cell Morphology Hntbmzy9078-27-19 14:22:00* Test Item Value Reference Range Interpretation Comments Red Cell Morphology Comment (test code = 6742-1) NORMAL [facility] CampusANKLE 3+ VIEWS VJFX5434-03-09 13:52:00 [facility] [address] [address] Patient Name: YAKOV ARTHUR MR #: [id number] : 1935 Age/Sex: 83/M Req #: [id number] Adm Physician: Ordered by: KAYCEE ROJAS SEASONAL CLERK Report #: [id number] Location: ER Room/Bed: Procedure: [id number] DX/ANKLE 3+ VIEWS LEFT Exam Date: 06/29/18 Exam Ti me: 1335 REPORT STATUS: Signed Exam: Left ankle 3 views History: Pain Comparison: None. Find ings: No acute fracture. Remote avulsion/ossification of the deltoid. Soft tis wojciech swelling of the ankle. Impression: Soft tissue swelling of the ank le without acute fracture. Signed by: Dr. Armand Mathews M.D. on 019 1:53 PM Dictated By: ARMAND MATHEWS MD 1353 Transcribed By: HORTENCIA on 06/29/18 1353 COPY TO: KAYCEE ROJAS NP CT ABDOMEN/PELVIS [id number] 04:27:00 [facility] [address] [address] Patient Name: YAKOV ARTHUR MR #: [id number] : 1934 Age/Sex: 83/M Req #: [id number] Adm Physician: Ordered by: WALT DUMONT MD Report #: [id number] Location: ER Room/Bed: Procedure: [id number] CT/CT ABDOMEN/PELVIS W Exam Date: 06/15/18 Exam Shemar e: 0345 REPORT STATUS: Signed EX AM: CT Abdomen and Pelvis WITH contrast INDICATION: Intermittent diarrhea. COMPARISON: CT abdomen and pelvis 04/22/2018 TECHNIQUE: Abdomen and pelvis we re scanned utilizing a multidetector helical scanner from the lung base to the pubic symphysis after administration of IV contrast. Coronal and sagittal ref ormations were obtained. Routine protocol was performed. Scan was performed wh en during portal venous phase. IV CONTRAST: 100 mL of Isovue-370 ORAL CONTRAST: Water COMPLICATIONS: None RADIATION DOSE: Total DLP: 718.8 mGy*cm Estimated effective dose: (DLP x 0.015 x size factor) mSv CTDIvol has been reviewed. It is below the limits set by the Radiation Protocol Committee (RPC). FINDINGS: LINES and TUBES: None. LOWER THORAX: Previously noted 5 mm juxtapleural right lower lobe no dule is located more superior than the current scanned portions of the chest. HEPATOBILIARY: Hepatic steatosis. Stable right hepatic 1.8 cm cyst. Subtle hypoattenuating 0.8 cm lesion segment 4B (series 2 image 22), stable. Stable punctate hyperattenuating focus in segment 2 (series 2 image 17). No biliary ductal dilation. GALLBLADDER: No radio-opaque stones or sludge. No wall thickening. SPLEEN: No splenomegaly. PANCREAS: No focal masses or brissa neo dilatation. ADRENALS: No adrenal nodules KIDNEYS/URETERS: Ki dneys enhance symmetrically. No hydronephrosis. No solid mass lesions. Tiny h ypodensities bilateral kidneys are too small to characterize, statistically li heraclio cysts. No stones. GI TRACT: Interval resection of the sigmoid colonic mass. Scattered colonic diverticula without evidence of diverticulitis. No abn ormal distention, wall thickening, or evidence of bowel obstruction. Laurie endix is not clearly identified. There is however no fat stranding or adenopat hy in the right lower quadrant to suggest appendicitis. PELVIC ORGANS/JOSH DDER: Prostate enlarged measuring 6.5 cm in transverse dimension. No focal josh dder wall thickening. LYMPH NODES: Stable 1.2 cm lymph node along the infe rior mesenteric artery chain (series 2 image 54). VESSELS: There is moder ate atherosclerotic disease in the aorta and major arterial branches. PER ITONEUM / RETROPERITONEUM: No free air or fluid. BONES: There are degenerat shannan changes in the lumbar spine. SOFT TISSUES: Midline laparotomy scar. Андрей ateral fat-containing inguinal hernias. IMPRESSION: No acute abnormali ties. Additional findings as above. Signed by: DR. Dhiraj Negrete MD on 06/15/2018 4:45 AM Dictated By: DHIRAJ NEGRETE MD 4 Transcribed By: HORTENCIA on 06/15/18444 COPY TO: WALT DUMONT MD Magnesium Wnjqe7250-67-67 00:41:00* Test Item Value Reference Range Interpretation Comments Magnesium Level (test code = 15300-4) 1.9 1.3-2.1 [facility] CampusAmylase Rukrd6508-45-27 00:41:00* Test Item Value Reference Range Interpretation Comments Amylase Level (test code = 1798-8) 67 25-125 [facility] CampusLipase2019-03-10 00:41:00* Test Item Value Reference Range Interpretation Comments Lipase (test code = 3040-3) 51 8-78 [facility] CampusLactic Acid Ubtxi5555-75-10 23:51:00* Test Item Value Reference Range Interpretation Comments Lactic Acid Level (test code = Lactic Acid Level) 15.9 4.5- 19.8 [facility] CampusCHEST SINGLE (PORTABLE)2018-05-26 15:08:00 [facility] [address] [address] Patient Name: YAKOV ARTHUR MR #: [id number] : 1935 Age/Sex: 83/M Req #: [id number] Adm Physician: Ordered by: LUBNA BURGOS MD Report #: [id number] Location: OR Room/Bed: Procedure: [id number] DX /CHEST SINGLE (PORTABLE) Exam Date: 05/26/18 Exam Ti me: 1435 REPORT STATUS: Signed E xamination: Single AP view of the chest. COMPARISON: Chest radiograph 2018 INDICATION: Status post port placement DISCUSSION: Inte rval placement of a left subclavian approach central venous port catheter. The tip projects over the mid superior vena cava. No pneumothorax. Lungs are w ell-inflated and without focal consolidation or effusion. Stable cardiomediast inal contour with tortuosity and atherosclerotic calcification of the thoracic aorta. No acute osseous abnormalities. IMPRESSION: Interval heike cement of a left subclavian central venous port catheter, with the tip project ing over the mid superior vena cava. No pneumothorax. Clear lungs. Sig julio cesar by: Dr. Lubna Amaro M.D. on 05/26/2018 3:09 PM Dictated By: LUBNA AMARO MD 1509 Transcri bed By: HORTENCIA on 05/26/18 1509 COPY TO: LUBNA BURGOS MD Triglycerides Rmyds5822-52-32 07:38:00* Test Item Value Reference Range Interpretation Comments Triglycerides Level (test code = 2571-8) 98 0-149 [facility] CampusCholesterol Ommsj3734-55-85 07:38:00* Test Item Value Reference Range Interpretation Comments Cholesterol Level (test code = 2093-3) 118 0-199 Less than 200 mg/dL Low Ltqu561 - 239 mg/dL Borderline Yntc221 m g/dl and greater High Risk [facility] CampusLDL Paxahrijcpw4149-72-92 07:38:00* Test Item Value Reference Range Interpretation Comments LDL Cholesterol (test code = 2089-1) 74 60-130 [facility] CampusHDL Wsmamqrsiul9458-19-17 07:38:00* Test Item Value Reference Range Interpretation Comments HDL Cholesterol (test code = 2085-9) 24 40-60 [facility] CampusCholesterol/HDL Hhuxx3933-58-87 07:38:00 * Test Item Value Reference Range Interpretation Comments Cholesterol/HDL Ratio (test code = 9830-1) 4.9 3.9-4.7 [facility] CampusHemoglobin A1c Bqswjmh3160-84-68 07:18:00 * Test Item Value Reference Range Interpretation Comments Hemoglobin A1c Percent (test code = Hemoglobin A1c Percent) 5.8 4.0-7.0 [facility] CampusCHEST 2 YQCYB1857-12-31 11:43:00 [facility] [address] [place] [address] Patient Name: YAKOV ARTHUR MR #: [id number] : 1935 Age/Sex: 83/M Req #: [id number] Adm Physician: Ordered by: LUBNA BURGOS MD Report #: [id number] Location: OR Room/Bed: Procedure: [id number] DX /CHEST 2 VIEWS Exam Date: 04/28/18 Exam Time: 1115 REPORT STATUS: Signed EXAMINATION: CHEST 2 VIEWS INDICATION: PREOP PROTOCOL. Rectal mass. CO MPARISON: CT abdomen and pelvis 04/22/2018. FINDINGS: PA and lateral views TUBES and LINES: None. LUNGS: Lungs are well inflated. Lungs are clear. There is no evidence of pneumonia or pulmonary edema. PLEURA: No pleural effusion or pneumothorax. HEART AND MEDIASTINUM: The cardiome diastinal silhouette is unremarkable. There are atherosclerotic calcifications within the aorta. BONES AND SOFT TISSUES: No acute osseous lesion. Soft tissues are unremarkable. UPPER ABDOMEN: No free air under the diaphragm. IMPRESSION: No acute thoracic abnormality. Signed by: Dr. Moshe Hutchinson M.D. on 04/28/2018 11:44 AM Dictated By: BRETT HUTCHINSON MD Electronicall y Signed By: BRETT HUTCHINSON MD on 04/28/18 1144 Transcribed By: HORTENCIA on 04/28/18 11 44 COPY TO: LUBNA BURGOS MD CT ABDOMEN/PELVIS [id number] 09:13:[address] [address] Patient Name: YAKOV ARTHUR MR #: [id number] : 1935 Age/Sex: 83/M Req #: [id number] Adm Physician: Ordered by: CESAR MATHEW MD Report #: [id number] Location: CT Room/Bed: Procedure: [id number] CT/CT ABDOMEN/PELVIS W Exam Date: 04/22/18 Exam Time : 0850 REPORT STATUS: Signed EXA MINATION: CT of the abdomen and pelvis with contrast. TECHNIQUE: Spiral CT images of the abdomen and pelvis were performed from the lung bases to the lesser trochanters after the intravenous administration of 100 cc of Isovue-37 0. Coronal and sagittal reformatted images were obtained. COMPARISON: None . CLINICAL HISTORY:Rectal mass by recent colonoscopy, multiple colon polyps , diverticulosis DISCUSSION: ABDOMEN/PELVIS: LOWER THORAX: 5 mm juxtapleural right lower lobe nodule seen on series 2 image 4. Right lowe r lobe calcified granuloma series 2 image 16. HEPATOBILIARY: 1.8 cm hypoatt enuating lesion in segment 6-7, average internal attenuation 6 Hounsfield unit s, compatible with a cyst. Hepatic parenchyma is otherwise diffusely hypoatten uating compatible with steatosis. No additional focal hepatic lesion. No intra hepatic biliary ductal dilatation. The gallbladder is normal. SP DAVID: No splenomegaly. PANCREAS: No focal masses or ductal dilatation. ADRENALS: No adrenal nodules. KIDNEYS/URETERS: Subcentimeter exophytic le theresa projecting from the upper pole of the left kidney is too small to further characterize but likely to represent a small cyst. No additional focal renal lesions. No hydronephrosis. No calculi. PELVIC ORGANS/BLADDER: The urinary bladder is incompletely distended but otherwise unremarkable. The prostate is enlarged, measuring 6.7 cm transversely. PERITONEUM/RETROPERITONEUM: No a scites. No pneumoperitoneum. LYMPH NODES: No pelvic sidewall or retroperito jaspal lymphadenopathy. 1.2 cm lymph node along the inferior mesenteric arterial chain (series 2 image 61). Enlarged medial rectal lymph nodes measure up to 11 mm short axis seen on series 2 image 68 and 67. VESSELS: There is ather osclerotic calcification of the abdominal aorta, major branch vessels, and umu ac arterial systems without aneurysmal dilatation. Portal vein, splenic vein, and central superior mesenteric vein are patent. GI TRACT: 5.7 cm AP x 4.6 cm transverse irregularly marginated hypoattenuating mass of the distal sigmoi d/proximal rectum best seen on series 2 image 71. Multiple descending and sigm oid diverticula without findings of diverticulitis. The appendix is not identi fied and may have been removed. Prominence of the gastric rugal folds is a con sequence of peristalsis and underdistention. No small bowel dilatation to sugg est obstruction. BONES AND SOFT TISSUE: No osseous destructive lesions. Mul tilevel degenerative disc changes and degenerative facet arthropathy of the christin mbar spine. Small bilateral fat-containing inguinal hernias. No additional fo christiano soft tissue abnormalities. IMPRESSION: 5.7 cm distal sigmoid/pr oximal rectal mass in keeping with the provided clinical history of endoscopic ally detected colorectal cancer. Regional metastatic lymphadenopathy in th e mesocolon and along the inferior mesenteric arterial chain as detailed above . No definite evidence of distant metastases. 5 mm juxtapleural right lower lobe pulmonary nodule is likely related to prior infectious or inflammatory p rocess, particularly in the setting of an adjacent right lower lobe calcified granuloma. However, attention on follow-up imaging studies is suggested. Atherosclerotic vascular disease. Large bowel diverticulosis without eviden ce of diverticulitis. Hepatic steatosis. Signed by: Dr. Lubna Amaro M.D. on 04/22/2018 9:26 AM Dictated By: LUBNA AMARO MD 09 Transcribed By: HORTENCIA on 09 COPY TO: CESAR MATHEW MD Creatine Kinase [id number] 09:17:00* Test Item Value Reference Range Interpretation Comments Creatine Kinase MB (test code = 63960-7) 1.10 0-5.0 [facility] CampusTroponin [id number] 09:17:00* Test Item Value Reference Range Interpretation Comments Troponin I (test code = RCI1694) 0.007 0-0.300 [facility] CampusCreatine Zrejmu6319-60-95 09:10:00* Test Item Value Reference Range Interpretation Comments Creatine Kinase (test code = 2157-6) 58 30-200 [facility] CampusUrine Opiates Gmvvcl4361-03-49 08:50:00* Test Item Value Reference Range Interpretation Comments Urine Opiates Screen (test code = 27093-6) POSITIVE NEGATIVE This test provides only a screen. Positive results should be repeated by a confi rmatory test.[facility] CampusUrine Barbiturates Screen 2018-03-05 08:50:00* Test Item Value Reference Range Interpretation Comments Urine Barbiturates Screen (test code = 647604290) NEGATIVE NEGA TIVE [facility] CampusUrine Phencyclidine Bobsix7087-63-18 08:50:00* Test Item Value Reference Range Interpretation Comments Urine Phencyclidine Screen (test code = 59276-0) NEGATIVE NEGAT SHANNAN [facility] CampusUrine Amphetamines Icmycq9548-63-80 08:50:00* Test Item Value Reference Range Interpretation Comments Urine Amphetamines Screen (test code = 42210-7) NEGATIVE NEGATI VE [facility] CampusUrine Methamphetamines Wzycwm2224-23-19 08:50:00* Test Item Value Reference Range Interpretation Comments Urine Methamphetamines Screen (test code = Urine Metha mphetamines Screen) NEGATIVE NEGATIVE [facility] CampusUrine Benzodiazepines Jmmgmj3944-25-90 08:50:00* Test Item Value Reference Range Interpretation Comments Urine Benzodiazepines Screen (test code = 00704-5) NEGATIVE NEG ATIVE [facility] CampusUrine Cocaine Oxynwe2070-10-41 08:50:00* Test Item Value Reference Range Interpretation Comments Urine Cocaine Screen (test code = 3398-5) NEGATIVE NEGATIVE [facility] CampusUrine Cannabinoids Apligc9056-63-10 08:50:00* Test Item Value Reference Range Interpretation Comments Urine Cannabinoids Screen (test code = 90172-1) NEGATIVE NEGATI VE THESE RESULTS ARE FOR MEDICAL TREATMENT ONLYTHIS REPORT CONTAINS UNCONFIR MED SCREENING RESULTS*POSITIVE RESULTS WILL BE CONFIRMED BY REFERENCE LAB UPON R EQUEST CUT-OFFDRUG CLASS CONCENTRATION ng/mLAmphetamines 1000Methamphetamines 1000Cocaine 300Opiate 300Phencyc lidine 25Cannabinoid 50Barbiturates 300Benzodiazepine 300Methadone 300[facility] CenterUrine Methadone Lymxte3076-70-52 08:50:00* Test Item Value Reference Range Interpretation Comments Urine Methadone Screen (test code = 13791-0) NEGATIVE NEGATIVE THESE RESULTS ARE FOR MEDICAL TREATMENT ONLYTHIS REPORT CONTAINS UNCONFIR MED SCREENING RESULTS*POSITIVE RESULTS WILL BE CONFIRMED BY REFERENCE LAB UPON R EQUEST CUT-OFFDRUG CLASS CONCENTRATION ng/mLAmphetamines 1000Methamphetamines 1000Cocaine Metabolite 300Opiate 300Phencyc lidine 25Cannabinoid 50Barbiturates 300Benzodiazepine 300Methadone 300[facility] CenterActivated Partial Thromboplast Cokt4407-98-09 08:46:00 * Test Item Value Reference Range Interpretation Comments Activated Partial Thromboplast Time (test code = 91971-7) 37.8 23.8-35.5 [facility] CenterKNEE LEFT 1-2 VIEWS [facility] [address] [address] Patient Name: YAKOV ARTHUR MR #: [id number] : 1935 Age/Sex: 82/M Req #: [id number] Adm Physician: Ordered by: LUBNA GARCIA MD Report #: [id number] Location: OR Room/Bed: Procedure: [id number] DX/KNEE LEFT 1-2 VIEWS Exam Date: 03/11/17 Exam Time: 1140 REPORT STATUS: Signed PROCEDURE: KNEE LEFT 1-2 VIEWS TECHNIQUE: AP and crosstable late ral views left knee INDICATION: Postsurgical evaluation COMPARISON: None . FINDINGS: See conclusion. CONCLUSION: 1. Total left knee a rthroplasty intact and in anatomic alignment. 2. Expected postsurgical changes including joint gas, effusion, soft tissue swelling and overlying surgical s taples. 3. Femoral and popliteal atherosclerosis. Dictated by: María Elena Eden M.D. on 03/11/2017 at 12:07 Electronically approved by: María Elena Eden M.D. on 03/11/2017 at 12:07 Dictated By: Moshe EDEN MD 120 Transcribed By: HARMEET on 03/11/171206 COPY TO: LUBNA GARCIA MD CHEST 2 VIEWS [place] [address] Patient Name: YAKOV ARTHUR MR #: [id number] : 1935 Age/Sex: 82/M Req #: [id number] Adm Physician: Ordered by: LUBNA GARCIA MD Report #: [id number] Location: OR Room/Bed: Procedure: [id number] DX/CHEST 2 VIEWS Exam Date: Exam Time: REPORT STATUS: Signed PROCEDUR E: Frontal and lateral views of the chest. COMPARISON: [facility], , CHEST 2 VIEWS, 03/02/2012, 5:01. INDICATIONS: PREOPERATIV E CHEST XRAY FOR LEFT KNEE SURGERY FINDINGS: Lines/tubes: None. Lungs: The lungs are well inflated and clear. There is no evidence of pne umonia or pulmonary edema. Pleura: There is no pleural effusion or pneumo thorax. Heart and mediastinum: The heart and the mediastinum are normal. Atherosclerotic calcification of the aortic arch. Bones: No acute bony abnormality. IMPRESSION: 1. No acute cardiopulmonary abnormalitie s. Cecilio Larsen M.D. Dictated by: Cecilio Larsen M.D. o juliet 03/07/2017 at 12:29 Electronically approved by: Nona Musa on 03/07/2017 at 12:29 Dictated By: CECILIO LARSEN MD Elect ronically Signed By: CECILIO LARSEN MD on 03/07/17 1229 Transcribed By: HARMEET chung 03/07/17 1229 COPY TO: LUBNA GARCIA MD KNEE LEFT THREE VIEWS [place] [address] Patient Name: YAKOV ARTHUR MR #: [id number] : 1935 Age/Sex: 82/M Req #: [id number] Adm Physicia n: Ordered by: OLENA MARTINEZ Report #: [id number] Location: [facility]/Bed: Procedure: [id number] DX/KNEE LEFT THREE VIEW S Exam Date: 02/14/17 Exam Time: 1715 REPORT S TATUS: Signed PROCEDURE: X-RAY LEFT KNEE, THREE OR MORE VIEWS COMPARI SON: None. INDICATIONS: LEFT KNEE LATERAL PAIN, unable to bend knee FINDINGS: The bones are diffusely demineralized and intact. Mild va danielle deformity is present. There are moderate degenerative changes of the medi al and patellofemoral compartments and ydff-xi-oevqlsgw degenerative changes of the lateral compartment. A small joint effusion is present. Atherosc lerotic calcifications are present in the arterial structures. 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 Dict ated by: Kenna Walker M.D. on 02/14/2017 at 18:04 Electronically laurie roved by: Kenna Walker M.D. on 02/14/2017 at 18:04 Dictat ed By: KENNA WALKER MD 03 Transcribed By: HARMEET on 02/14/171803 COPY TO: OLENA MARTINEZ
== END | disposition home or self-care (01) ==
LOC: RAD 05:00 → OR 05:00 → EDSTATUS 12:00
PROVIDERS: ATTEND Surgery
DX: C18.9 Malignant neoplasm of colon, unspecified (principal); R91.8 Other nonspecific abnormal finding of lung field; G62.9 Polyneuropathy, unspecified; I10 Essential (primary) hypertension; F95.9 Tic disorder, unspecified; Z45.2 Encounter for adjustment and management of vascular access device; Z01.810 Encounter for preprocedural cardiovascular examination; Z01.812 Encounter for preprocedural laboratory examination; Z01.818 Encounter for other preprocedural examination; Z11.59 Encounter for screening for other viral diseases; Z79.82 Long term (current) use of aspirin; Z53.8 Procedure and treatment not carried out for other reasons
CPT/HCPCS: 36415; 71046; 80048; 85025; 87635; 93005; J0690; J2001; J2250; J2704; J3010

== ENCOUNTER 2020-02-25 13:46 | Inpatient (IN) | payer MEDICARE ==
[~2020-02-25] VITALS: Ht 177.8 cm; Wt 97.3 kg
[~2020-02-25 13:46] MED LIST changes: -CEFAZOLIN SOD 1 GM/NS 50ML 50 ML IV ONE; -FENTANYL CITRATE/PF 100MCG/2 ML INJ ONE; -LIDOCAINE HCL 1% LOCAL INJ 20 ML VIAL ONE; -LIDOCAINE HCL 2% LOCAL INJ 5 ML SDV VIAL INJ ONE; -MIDAZOLAM HCL 2 MG/2 ML VIAL ONE; -PROPOFOL IV EMULSION 10 MG/ML 20 ML VIAL ONE
[2020-02-25] MEDS ORDERED: MORPHINE SULFATE INJ 4 MG/ML INJ 1ML IV STA (14:12)
[2020-02-25 14:37] LABS: BASOPHILS % 0.5 % (0.0-1.0); EOSINOPHILS # (AUTO) 0.1 (0.0-0.4); EOSINOPHILS % 1.1 % (0.0-6.0); HEMATOCRIT 42.3 % (38.2-49.6); HEMOGLOBIN 14.1 g/dL (14.0-18.0); LYMPHOCYTES # (AUTO) 2.2 (1.0-3.2); MEAN CORPUSCULAR HGB CONC 33.3 g/dL (31-35); MEAN CORPUSCULAR VOLUME 86.9 fL (81-99); MONOCYTES # (AUTO) 1.1 (0.2-0.8); MONOCYTES % 19.6 % (4.4-11.3); NEUTROPHILS % 36.8 % (38.7-80.0); PLATELET COUNT 129 x10e3/uL (140-360); RED BLOOD COUNT 4.87 x10e6/uL (4.3-5.7); RED CELL DISTRIBUTION WIDTH 15.2 % (11.7-14.4)
[2020-02-25 14:42] LABS: COLOR,URINE YELLOW (YELLOW)
[2020-02-25 14:43] LABS: CLARITY,URINE CLEAR (CLEAR); KETONES,URINE NEGATIVE (NEGATIVE); LEUKOCYTE ESTERASE ,URINE NEGATIVE (NEGATIVE); NITRITE,URINE NEGATIVE (NEGATIVE); PROTEIN,URINE DIPSTICK NEGATIVE (NEGATIVE); URINE UROBILINOGEN 0.2 mg/dL (0.2 - 1)
[2020-02-25 14:51] LABS: BACTERIA,URINE FEW /HPF; MUCUS,URINE FEW (RARE)
[2020-02-25 14:52] LABS: ALBUMIN 3.9 g/dL (3.5-5.0); ALBUMIN/GLOBULIN RATIO 1.2 (0.8-2.0); ANION GAP 14.2 mmol/L (8-16); CALCIUM 8.9 mg/dL (8.4-10.2); CREATININE, SERUM 1.17 mg/dL (0.72-1.25); POTASSIUM 3.2 mmol/L (3.5-5.1)
[2020-02-25] MEDS ORDERED: IOPAMIDOL 370 MG/ML 200 ML INFUS..BTL INJ ONE (16:05)
[2020-02-25] MEDS ORDERED: SODIUM CHLORIDE 0.9% 50ML 50 ML ONE (16:05)
[2020-02-25] MEDS: ENOXAPARIN SODIUM INJ 100 MG/ML SYR SC SCH (16:33)
[2020-02-25 16:48] LABS: INR 0.98; PROTHROMBIN TIME 13.5 seconds (11.9-14.5)
[2020-02-25] MEDS ORDERED: PREGABALIN 50 MG CAP PO SCH (18:00)
[2020-02-25] MEDS ORDERED: MORPHINE SULFATE INJ 4 MG/ML INJ 1ML IV ONE (18:00)
[2020-02-25] MEDS ORDERED: MORPHINE SULFATE INJ 2 MG/ML SYR ONE (18:10)
[2020-02-25 19:00] VITALS: BP 117/64
[2020-02-25] MEDS ORDERED: DOCUSATE SODIUM 100 MG CAP PO PRN (19:30)
[2020-02-25] MEDS ORDERED: ACETAMINOPHEN 325 MG TAB PO PRN (19:30)
[2020-02-25] MEDS ORDERED: ONDANSETRON HCL INJ 2MG/ML 2ML 2 MG/ML VIAL IV PRN (19:30)
[2020-02-25 20:00] VITALS: BP 117/64
[2020-02-25] MEDS ORDERED: PANTOPRAZOLE SOD 40 MG TABEC PO ONE (20:00)
[2020-02-25] MEDS: ZOLPIDEM TARTRATE 5 MG TAB PO PRN (20:13)
[2020-02-25] MEDS: PREGABALIN 50 MG CAP PO SCH (20:13)
[2020-02-25 21:15] VITALS: BP 117/64
[2020-02-26] VITALS (8 sets, daily range): BP systolic 108–137; BP diastolic 62–81
[2020-02-26 06:17] LABS: BASOPHILS % 0.4 % (0.0-1.0); EOSINOPHILS % 0.4 % (0.0-6.0); HEMATOCRIT 37.3 % (38.2-49.6); HEMOGLOBIN 12.5 g/dL (14.0-18.0); LYMPHOCYTES # (AUTO) 1.7 (1.0-3.2); LYMPHOCYTES % 23.5 % (18.0-39.1); MEAN CORPUSCULAR HEMOGLOBIN 29.1 pg (28-32); MEAN CORPUSCULAR HGB CONC 33.5 g/dL (31-35); MEAN CORPUSCULAR VOLUME 86.9 fL (81-99); MONOCYTES # (AUTO) 1.5 (0.2-0.8); NEUTROPHILS % 53.7 % (38.7-80.0); PLATELET COUNT 116 x10e3/uL (140-360); RED BLOOD COUNT 4.29 x10e6/uL (4.3-5.7); RED CELL DISTRIBUTION WIDTH 15.5 % (11.7-14.4)
[2020-02-26] MEDS: ENOXAPARIN SODIUM INJ 100 MG/ML SYR SC SCH ×2 (06:22→18:09)
[2020-02-26 06:37] LABS: ANION GAP 16.1 mmol/L (8-16); BLOOD UREA NITROGEN 20 mg/dL (7-26); BUN/CREATININE RATIO 18 (6-25); CALCIUM 8.9 mg/dL (8.4-10.2); CARBON DIOXIDE 25 mmol/L (22-29); CHLORIDE 96 mmol/L (98-107); CREATININE, SERUM 1.11 mg/dL (0.72-1.25); EST GLOMERULAR FILTRATION RATE > 60 ML/MIN (60-); GLUCOSE 168 mg/dL (74-118); POTASSIUM 4.1 mmol/L (3.5-5.1); SODIUM 133 mmol/L (136-145)
[2020-02-26] MEDS ORDERED: DOCUSATE SODIUM 100 MG CAP PO PRN (06:45)
[2020-02-26] MEDS ORDERED: ZOLPIDEM TARTRATE 5 MG TAB PO PRN (06:45)
[2020-02-26] MEDS ORDERED: SIMETHICONE 80 MG CHEW PO PRN (07:15)
[2020-02-26] MEDS: PANTOPRAZOLE SOD 40 MG TABEC PO SCH (09:09)
[2020-02-26] MEDS: PREGABALIN 50 MG CAP PO SCH ×3 (09:09→20:20)
[2020-02-26] MEDS: ATENOLOL 50 MG TAB PO SCH (09:10)
[2020-02-26] MEDS: AMLODIPINE BESYLATE 5 MG TAB PO SCH (09:10)
[2020-02-26] MEDS: ZOLPIDEM TARTRATE 5 MG TAB PO PRN (20:33)
[2020-02-27] VITALS (8 sets, daily range): BP systolic 92–124; BP diastolic 59–67
[2020-02-27] MEDS: ENOXAPARIN SODIUM INJ 100 MG/ML SYR SC SCH ×2 (05:51→17:09)
[2020-02-27] MEDS: PREGABALIN 50 MG CAP PO SCH ×3 (09:01→21:16)
[2020-02-27] MEDS: PANTOPRAZOLE SOD 40 MG TABEC PO SCH (09:01)
[2020-02-27] MEDS: AMLODIPINE BESYLATE 5 MG TAB PO SCH (09:02)
[2020-02-27] MEDS: ATENOLOL 50 MG TAB PO SCH (09:02)
[2020-02-27] MEDS ORDERED: WARFARIN SOD 5 MG TAB PO SCH (17:00)
[2020-02-27] MEDS: ZOLPIDEM TARTRATE 5 MG TAB PO PRN (23:44)
[2020-02-28] MEDS: ENOXAPARIN SODIUM INJ 100 MG/ML SYR SC SCH ×2 (05:09→17:40)
[2020-02-28 06:23] LABS: INR 1.16; PROTHROMBIN TIME 15.4 seconds (11.9-14.5)
[2020-02-28 07:47] VITALS: BP 92/61
[2020-02-28 08:00] VITALS: BP 116/66
[2020-02-28] MEDS: AMLODIPINE BESYLATE 5 MG TAB PO SCH (08:31)
[2020-02-28] MEDS: PANTOPRAZOLE SOD 40 MG TABEC PO SCH (08:31)
[2020-02-28] MEDS: ATENOLOL 50 MG TAB PO SCH (08:31)
[2020-02-28] MEDS: PREGABALIN 50 MG CAP PO SCH ×3 (08:31→21:01)
[2020-02-28 12:00] VITALS: BP 121/62
[2020-02-28 16:00] VITALS: BP 110/58
[2020-02-28] MEDS ORDERED: WARFARIN SOD 2 MG TAB PO SCH (17:00)
[2020-02-28 20:00] VITALS: BP 118/64
[2020-02-28 21:06] VITALS: BP 118/64
[2020-02-28] MEDS: ZOLPIDEM TARTRATE 5 MG TAB PO PRN (23:32)
[2020-02-29] VITALS (9 sets, daily range): BP systolic 102–122; BP diastolic 58–74
[2020-02-29] MEDS: ENOXAPARIN SODIUM INJ 100 MG/ML SYR SC SCH ×2 (05:24→17:54)
[2020-02-29 05:34] LABS: INR 1.47; PROTHROMBIN TIME 18.6 seconds (11.9-14.5)
[2020-02-29 05:36] LABS: HEMOGLOBIN 10.9 g/dL (14.0-18.0)
[2020-02-29] MEDS: PANTOPRAZOLE SOD 40 MG TABEC PO SCH (08:47)
[2020-02-29] MEDS: AMLODIPINE BESYLATE 5 MG TAB PO SCH (08:48)
[2020-02-29] MEDS: ATENOLOL 50 MG TAB PO SCH (08:48)
[2020-02-29] MEDS: PREGABALIN 50 MG CAP PO SCH ×3 (08:48→19:30)
[2020-02-29] MEDS ORDERED: WARFARIN SOD 2 MG TAB PO SCH (17:00)
[2020-02-29] MEDS: ZOLPIDEM TARTRATE 5 MG TAB PO PRN (23:04)
[2020-03-01] VITALS (8 sets, daily range): BP systolic 91–143; BP diastolic 59–77
[2020-03-01 05:23] LABS: BASOPHILS % 0.7 % (0.0-1.0); EOSINOPHILS # (AUTO) 0.1 (0.0-0.4); EOSINOPHILS % 2.1 % (0.0-6.0); HEMATOCRIT 34.3 % (38.2-49.6); HEMOGLOBIN 11.3 g/dL (14.0-18.0); LYMPHOCYTES # (AUTO) 1.2 (1.0-3.2); LYMPHOCYTES % 42.8 % (18.0-39.1); MEAN CORPUSCULAR HEMOGLOBIN 29.4 pg (28-32); MEAN CORPUSCULAR HGB CONC 32.9 g/dL (31-35); MEAN CORPUSCULAR VOLUME 89.3 fL (81-99); MONOCYTES # (AUTO) 0.4 (0.2-0.8); MONOCYTES % 14.1 % (4.4-11.3); NEUTROPHILS # (AUTO) 1.1 (2.1-6.9); NEUTROPHILS % 39.2 % (38.7-80.0); PLATELET COUNT 117 x10e3/uL (140-360); RED BLOOD COUNT 3.84 x10e6/uL (4.3-5.7); RED CELL DISTRIBUTION WIDTH 15.2 % (11.7-14.4)
[2020-03-01 05:26] LABS: INR 2.14; PROTHROMBIN TIME 24.9 seconds (11.9-14.5)
[2020-03-01] MEDS: ENOXAPARIN SODIUM INJ 100 MG/ML SYR SC SCH (05:30)
[2020-03-01] MEDS: PANTOPRAZOLE SOD 40 MG TABEC PO SCH (07:30)
[2020-03-01] MEDS: PREGABALIN 50 MG CAP PO SCH ×3 (09:00→20:50)
[2020-03-01] MEDS: ATENOLOL 50 MG TAB PO SCH (09:00)
[2020-03-01] MEDS: AMLODIPINE BESYLATE 5 MG TAB PO SCH (09:00)
[2020-03-01] MEDS ORDERED: WARFARIN SOD 1 MG TAB PO SCH (17:00)
[2020-03-01] MEDS ORDERED: WARFARIN SOD 3 MG TAB PO SCH (17:00)
[2020-03-01] MEDS: ZOLPIDEM TARTRATE 5 MG TAB PO PRN (23:34)
[2020-03-02] VITALS (8 sets, daily range): BP systolic 116–126; BP diastolic 62–71
[2020-03-02 05:18] LABS: HEMATOCRIT 33.4 % (38.2-49.6); HEMOGLOBIN 10.9 g/dL (14.0-18.0)
[2020-03-02 05:43] LABS: INR 3.24; PROTHROMBIN TIME 34.6 seconds (11.9-14.5)
[2020-03-02] MEDS: PANTOPRAZOLE SOD 40 MG TABEC PO SCH (09:45)
[2020-03-02] MEDS: PREGABALIN 50 MG CAP PO SCH ×3 (09:45→21:00)
[2020-03-02] MEDS: AMLODIPINE BESYLATE 5 MG TAB PO SCH (09:45)
[2020-03-02] MEDS: ATENOLOL 50 MG TAB PO SCH (09:45)
[2020-03-02 16:24] LABS: INR 3.89; PROTHROMBIN TIME 39.9 seconds (11.9-14.5)
[2020-03-02] MEDS ORDERED: WARFARIN SOD 1 MG TAB PO SCH (17:00)
[2020-03-02] MEDS ORDERED: WARFARIN SOD 5 MG TAB PO SCH (17:00)
[2020-03-03 02:53] VITALS: BP 121/72
[2020-03-03 04:00] VITALS: BP 127/20
[2020-03-03 05:52] LABS: INR 3.45; PROTHROMBIN TIME 36.3 seconds (11.9-14.5)
[2020-03-03 07:42] VITALS: BP 122/72
[2020-03-03] MEDS ORDERED: WARFARIN SODIUM5 MG PO (08:26)
== END 2020-03-03 08:58 | disposition home or self-care (01) | DRG 176 ==
LOC: ER 14:00 → ERHOLD 16:17 → MED/SURG2 19:01
PROVIDERS: ADMIT Internal Medicine; ATTEND Internal Medicine
DX: I26.99 Other pulmonary embolism without acute cor pulmonale (principal); E87.1 Hypo-osmolality and hyponatremia; C18.9 Malignant neoplasm of colon, unspecified; C78.02 Secondary malignant neoplasm of left lung; C78.01 Secondary malignant neoplasm of right lung; C78.1 Secondary malignant neoplasm of mediastinum; D69.6 Thrombocytopenia, unspecified; I10 Essential (primary) hypertension; K80.20 Calculus of gallbladder without cholecystitis without obstruction; Z20.828 Contact with and (suspected) exposure to other viral communicable diseases; K80.80 Other cholelithiasis without obstruction; E87.6 Hypokalemia; M19.90 Unspecified osteoarthritis, unspecified site; E66.9 Obesity, unspecified; Z68.30 Body mass index [BMI] 30.0-30.9, adult
CPT/HCPCS: 36415; 71260; 74177; 80048; 80053; 81001; 83690; 84484; 85014; 85018; 85025; 85379; 85610; 99284; J1650; J2270; Q9967; U0002

== ENCOUNTER 2020-12-06 08:18 | Inpatient (IN) | payer MEDICARE ==
[~2020-12-06] VITALS: Ht 177.8 cm; Wt 97.1 kg
[~2020-12-06 08:18] MED LIST changes: +WARFARIN SODIUM5 MG PO
[2020-12-06] MEDS ORDERED: SODIUM CHLORIDE 0.9% 1000ML 1,000 ML IV STA (09:14)
[2020-12-06 09:35] LABS: BASOPHILS % 0.5 % (0.0-1.0); EOSINOPHILS # (AUTO) 0.1 (0.0-0.4); LYMPHOCYTES # (AUTO) 0.7 (1.0-3.2); MONOCYTES # (AUTO) 0.3 (0.2-0.8); MONOCYTES % 16.5 % (4.4-11.3); NEUTROPHILS # (AUTO) 0.9 (2.1-6.9); NEUTROPHILS % 45.5 % (38.7-80.0)
[2020-12-06 09:41] LABS: HEMATOCRIT 41.2 % (38.2-49.6); HEMOGLOBIN 13.8 g/dL (14.0-18.0); MEAN CORPUSCULAR HEMOGLOBIN 29.4 pg (28-32); MEAN CORPUSCULAR HGB CONC 33.5 g/dL (31-35); MEAN CORPUSCULAR VOLUME 87.7 fL (81-99); RED CELL DISTRIBUTION WIDTH 15.9 % (11.7-14.4)
[2020-12-06 09:43] LABS: PLATELET COUNT 82 x10e3/uL (140-360)
[2020-12-06 10:05] LABS: ALBUMIN 3.6 g/dL (3.5-5.0); ALBUMIN/GLOBULIN RATIO 1.4 (0.8-2.0); ANION GAP 13.6 mmol/L (8-16); CALCIUM 9.2 mg/dL (8.4-10.2); CREATININE, SERUM 0.88 mg/dL (0.72-1.25); POTASSIUM 3.6 mmol/L (3.5-5.1)
[2020-12-06] MEDS ORDERED: SODIUM CHLORIDE 0.9% 50ML 50 ML ONE (12:49)
[2020-12-06] MEDS ORDERED: IOPAMIDOL 370 MG/ML 200 ML INFUS..BTL INJ ONE (12:49)
[2020-12-06] MEDS ORDERED: MORPHINE SULFATE INJ 4 MG/ML INJ 1ML IV PRN (13:45)
[2020-12-06 14:03] LABS: CREATINE KINASE MB 0.5 ng/mL (0-5.0)
[2020-12-06 18:27] LABS: BAND NEUTROPHILS % (MANUAL) 1 %; EOSINOPHILS % (MANUAL) 4 % (0-7); LYMPHOCYTES % (MANUAL) 45 % (19-48); MONOCYTES % (MANUAL) 8 % (3.4-9.0); NEUTROPHILS % (MANUAL) 35 % (40-74)
[2020-12-06 18:28] LABS: PLATELET ESTIMATE ADEQUATE
[2020-12-06 18:29] LABS: PLATELET MORPHOLOGY COMMENT FEW LARGE
[2020-12-06] MEDS: ONDANSETRON HCL INJ 2MG/ML 2ML 2 MG/ML VIAL IV PRN (18:41)
[2020-12-06] MEDS: SODIUM CHLORIDE 0.9% 1000ML 1,000 ML IV SCH ×2 (18:41→21:45)
[2020-12-06 21:06] VITALS: BP 120/63
[2020-12-06 21:15] VITALS: BP 120/63
[2020-12-06] MEDS ORDERED: ZOLPIDEM TARTRATE 5 MG TAB PO PRN (23:45)
[2020-12-07] VITALS (8 sets, daily range): BP systolic 107–118; BP diastolic 57–76
[2020-12-07 00:46] LABS: CREATINE KINASE MB 0.3 ng/mL (0-5.0)
[2020-12-07 05:41] LABS: BASOPHILS % 0.6 % (0.0-1.0); EOSINOPHILS # (AUTO) 0.1 (0.0-0.4); EOSINOPHILS % 3.7 % (0.0-6.0); HEMATOCRIT 34.4 % (38.2-49.6); HEMOGLOBIN 11.4 g/dL (14.0-18.0); LYMPHOCYTES # (AUTO) 0.5 (1.0-3.2); LYMPHOCYTES % 31.7 % (18.0-39.1); MEAN CORPUSCULAR HEMOGLOBIN 29.2 pg (28-32); MEAN CORPUSCULAR HGB CONC 33.1 g/dL (31-35); MEAN CORPUSCULAR VOLUME 88.2 fL (81-99); MONOCYTES # (AUTO) 0.4 (0.2-0.8); MONOCYTES % 24.2 % (4.4-11.3); NEUTROPHILS # (AUTO) 0.6 (2.1-6.9); NEUTROPHILS % 39.2 % (38.7-80.0); PLATELET COUNT 62 x10e3/uL (140-360); RED CELL DISTRIBUTION WIDTH 15.8 % (11.7-14.4)
[2020-12-07 06:08] LABS: ALBUMIN 2.8 g/dL (3.5-5.0); ALBUMIN/GLOBULIN RATIO 1.4 (0.8-2.0); CALCIUM 7.6 mg/dL (8.4-10.2); CREATININE, SERUM 0.73 mg/dL (0.72-1.25)
[2020-12-07 06:16] LABS: CREATINE KINASE MB 0.3 ng/mL (0-5.0)
[2020-12-07] MEDS ORDERED: FILGRASTIM 300 MCG/ML VIAL SC SCH (09:30)
[2020-12-07] MEDS: METHYLPREDNISOLONE SOD SUCC 40 MG/ML VIAL 1ML IV SCH ×2 (09:48→21:22)
[2020-12-07] MEDS: SODIUM CHLORIDE 0.9% 1000ML 1,000 ML IV SCH ×3 (09:51→21:45)
[2020-12-07] MEDS ORDERED: FILGRASTIM-AAFI 480 MCG/0.8 ML SYRINGE SQ ONE (10:00)
[2020-12-07] MEDS: METRONIDAZOLE 500MG/NS 100ML 100 ML IV SCH ×4 (10:00→21:22)
[2020-12-07] MEDS: ASPIRIN 81 MG CHEW TAB PO SCH (11:27)
[2020-12-07] MEDS: HYDROCHLOROTHIAZIDE 25 MG TAB PO SCH (11:28)
[2020-12-07] MEDS: AMLODIPINE BESYLATE 5 MG TAB PO SCH (11:28)
[2020-12-07] MEDS: PREGABALIN 50 MG CAP PO SCH ×3 (11:28→21:22)
[2020-12-07] MEDS: ATENOLOL 50 MG TAB PO SCH (11:29)
[2020-12-07 14:04] LABS: INR 2.27; PROTHROMBIN TIME 25.4 seconds (11.9-14.5)
[2020-12-07 14:10] LABS: EOSINOPHILS % (MANUAL) 2 % (0-7); LYMPHOCYTES % (MANUAL) 37 % (19-48); MONOCYTES % (MANUAL) 21 % (3.4-9.0); NEUTROPHILS % (MANUAL) 40 % (40-74); PLATELET ESTIMATE MODERATELY DECREASED; PLATELET MORPHOLOGY COMMENT NORMAL; RBC MORPHOLOGY COMMENT NORMAL
[2020-12-07] MEDS: HYDROMORPHONE 1MG/1ML INJ IV PRN (15:51)
[2020-12-07] MEDS: ONDANSETRON HCL INJ 2MG/ML 2ML 2 MG/ML VIAL IV PRN (15:51)
[2020-12-07 20:23] LABS: BASOPHILS % 0.2 % (0.0-1.0); HEMATOCRIT 36.9 % (38.2-49.6); HEMOGLOBIN 12.3 g/dL (14.0-18.0); LYMPHOCYTES # (AUTO) 0.5 (1.0-3.2); LYMPHOCYTES % 10.4 % (18.0-39.1); MEAN CORPUSCULAR HEMOGLOBIN 29.1 pg (28-32); MEAN CORPUSCULAR HGB CONC 33.3 g/dL (31-35); MEAN CORPUSCULAR VOLUME 87.4 fL (81-99); MONOCYTES # (AUTO) 0.7 (0.2-0.8); MONOCYTES % 14.1 % (4.4-11.3); NEUTROPHILS # (AUTO) 3.7 (2.1-6.9); NEUTROPHILS % 75.1 % (38.7-80.0); PLATELET COUNT 70 x10e3/uL (140-360); RED BLOOD COUNT 4.22 x10e6/uL (4.3-5.7); RED CELL DISTRIBUTION WIDTH 15.6 % (11.7-14.4)
[2020-12-08 00:45] VITALS: BP 119/65
[2020-12-08] MEDS: SODIUM CHLORIDE 0.9% 1000ML 1,000 ML IV SCH ×3 (03:23→20:55)
[2020-12-08 05:39] VITALS: BP 116/70
[2020-12-08] MEDS: METRONIDAZOLE 500MG/NS 100ML 100 ML IV SCH ×3 (06:17→20:56)
[2020-12-08] MEDS: HYDROMORPHONE 1MG/1ML INJ IV PRN (06:33)
[2020-12-08 07:21] LABS: BASOPHILS # (AUTO) 0.1 (0.0-0.1); BASOPHILS % 0.9 % (0.0-1.0); HEMATOCRIT 37.1 % (38.2-49.6); HEMOGLOBIN 12.5 g/dL (14.0-18.0); LYMPHOCYTES # (AUTO) 0.6 (1.0-3.2); LYMPHOCYTES % 7.7 % (18.0-39.1); MEAN CORPUSCULAR HEMOGLOBIN 29.3 pg (28-32); MEAN CORPUSCULAR HGB CONC 33.7 g/dL (31-35); MEAN CORPUSCULAR VOLUME 86.9 fL (81-99); MONOCYTES # (AUTO) 0.8 (0.2-0.8); MONOCYTES % 9.7 % (4.4-11.3); NEUTROPHILS # (AUTO) 6.6 (2.1-6.9); NEUTROPHILS % 80.8 % (38.7-80.0); PLATELET COUNT 73 x10e3/uL (140-360); RED BLOOD COUNT 4.27 x10e6/uL (4.3-5.7); RED CELL DISTRIBUTION WIDTH 15.6 % (11.7-14.4)
[2020-12-08 07:41] VITALS: BP 109/67
[2020-12-08] MEDS: ASPIRIN 81 MG CHEW TAB PO SCH (09:00)
[2020-12-08] MEDS: METHYLPREDNISOLONE SOD SUCC 40 MG/ML VIAL 1ML IV SCH ×2 (09:00→20:55)
[2020-12-08] MEDS: HYDROCHLOROTHIAZIDE 25 MG TAB PO SCH (09:00)
[2020-12-08] MEDS: AMLODIPINE BESYLATE 5 MG TAB PO SCH (09:00)
[2020-12-08 09:23] LABS: BAND NEUTROPHILS % (MANUAL) 16 %; LYMPHOCYTES % (MANUAL) 6 % (19-48); MONOCYTES % (MANUAL) 11 % (3.4-9.0); NEUTROPHILS % (MANUAL) 67 % (40-74)
[2020-12-08 09:24] LABS: PLATELET ESTIMATE MODERATELY DECREASED; PLATELET MORPHOLOGY COMMENT FEW LARGE; RBC MORPHOLOGY COMMENT NORMAL
[2020-12-08 11:37] VITALS: BP 123/67
[2020-12-08] MEDS: PREGABALIN 50 MG CAP PO SCH ×3 (14:40→20:55)
[2020-12-08] MEDS: ATENOLOL 50 MG TAB PO SCH (14:41)
[2020-12-08 15:43] VITALS: BP 106/66
[2020-12-08] MEDS ORDERED: WARFARIN SOD 5 MG TAB PO SCH (17:00)
[2020-12-08 20:30] VITALS: BP 130/69
[2020-12-09] VITALS (7 sets, daily range): BP systolic 118–141; BP diastolic 61–79
[2020-12-09] MEDS ORDERED: CALCIUM CARBONATE 500 MG CHEWABLE TABS PO PRN (00:30)
[2020-12-09] MEDS: HYDROMORPHONE 1MG/1ML INJ IV PRN (04:10)
[2020-12-09] MEDS: SODIUM CHLORIDE 0.9% 1000ML 1,000 ML IV SCH (05:39)
[2020-12-09] MEDS: METRONIDAZOLE 500MG/NS 100ML 100 ML IV SCH (05:40)
[2020-12-09] MEDS ORDERED: FLAGYL500 MG PO (09:22)
[2020-12-09] MEDS ORDERED: PREDNISONE20 MG PO (09:22)
[2020-12-09] MEDS: HYDROCHLOROTHIAZIDE 25 MG TAB PO SCH (09:28)
[2020-12-09] MEDS: ASPIRIN 81 MG CHEW TAB PO SCH (09:28)
[2020-12-09] MEDS: AMLODIPINE BESYLATE 5 MG TAB PO SCH (09:28)
[2020-12-09] MEDS: METHYLPREDNISOLONE SOD SUCC 40 MG/ML VIAL 1ML IV SCH (09:28)
[2020-12-09] MEDS: PREGABALIN 50 MG CAP PO SCH (09:28)
[2020-12-09] MEDS: ATENOLOL 50 MG TAB PO SCH (09:29)
[2020-12-09 10:43] LABS: BASOPHILS % 0.3 % (0.0-1.0); HEMATOCRIT 37.7 % (38.2-49.6); HEMOGLOBIN 12.7 g/dL (14.0-18.0); LYMPHOCYTES # (AUTO) 0.9 (1.0-3.2); MEAN CORPUSCULAR HEMOGLOBIN 29.7 pg (28-32); MEAN CORPUSCULAR HGB CONC 33.7 g/dL (31-35); MEAN CORPUSCULAR VOLUME 88.3 fL (81-99); MONOCYTES # (AUTO) 0.8 (0.2-0.8); MONOCYTES % 7.7 % (4.4-11.3); NEUTROPHILS # (AUTO) 8.1 (2.1-6.9); NEUTROPHILS % 81.9 % (38.7-80.0); PLATELET COUNT 74 x10e3/uL (140-360); RED BLOOD COUNT 4.27 x10e6/uL (4.3-5.7); RED CELL DISTRIBUTION WIDTH 16.4 % (11.7-14.4)
[2020-12-09 11:05] LABS: ANION GAP 15.9 mmol/L (8-16); CREATININE, SERUM 0.88 mg/dL (0.72-1.25); MAGNESIUM 1.9 MG/DL (1.3-2.1); PHOSPHORUS 2.7 MG/DL (2.3-4.7); POTASSIUM 3.9 mmol/L (3.5-5.1)
[2020-12-09] MEDS ORDERED: ONDANSETRON HCL 4 MG ORAL DISINTEGRATING TAB PO PRN (12:00)
== END 2020-12-09 13:25 | disposition home or self-care (01) | DRG 394 ==
LOC: ER 09:16 → ERHOLD 13:38 → MED/SURG3 21:38
PROVIDERS: ADMIT Internal Medicine; ATTEND Internal Medicine
DX: K62.89 Other specified diseases of anus and rectum (principal); C78.00 Secondary malignant neoplasm of unspecified lung; C78.1 Secondary malignant neoplasm of mediastinum; C79.51 Secondary malignant neoplasm of bone; C79.72 Secondary malignant neoplasm of left adrenal gland; C79.71 Secondary malignant neoplasm of right adrenal gland; K86.3 Pseudocyst of pancreas; K29.80 Duodenitis without bleeding; D69.6 Thrombocytopenia, unspecified; E66.9 Obesity, unspecified; Z68.30 Body mass index [BMI] 30.0-30.9, adult; K80.20 Calculus of gallbladder without cholecystitis without obstruction; Z85.038 Personal history of other malignant neoplasm of large intestine; I10 Essential (primary) hypertension; Z86.711 Personal history of pulmonary embolism; Z79.01 Long term (current) use of anticoagulants; D70.9 Neutropenia, unspecified; Z20.822 Contact with and (suspected) exposure to COVID-19
CPT/HCPCS: 36415; 71045; 74177; 80048; 80053; 82550; 82553; 83735; 84100; 84132; 84484; 85025; 85610; 99284; J1170; J1442; J2270; J2405; J2920; J7030; Q9967; U0002

== ENCOUNTER 2020-12-21 10:41 | Inpatient (IN) | payer MEDICARE ==
[~2020-12-21] VITALS: Ht 177.8 cm; Wt 89.4 kg
[~2020-12-21 10:41] MED LIST changes: +FLAGYL500 MG PO; +PREDNISONE20 MG PO
[2020-12-21 11:30] LABS: BASOPHILS % 0.4 % (0.0-1.0); EOSINOPHILS # (AUTO) 0.1 (0.0-0.4); EOSINOPHILS % 0.9 % (0.0-6.0); HEMATOCRIT 40.4 % (38.2-49.6); HEMOGLOBIN 13.5 g/dL (14.0-18.0); LYMPHOCYTES # (AUTO) 0.5 (1.0-3.2); LYMPHOCYTES % 9.7 % (18.0-39.1); MEAN CORPUSCULAR HEMOGLOBIN 30.1 pg (28-32); MEAN CORPUSCULAR HGB CONC 33.4 g/dL (31-35); MONOCYTES # (AUTO) 0.3 (0.2-0.8); MONOCYTES % 4.8 % (4.4-11.3); NEUTROPHILS # (AUTO) 4.6 (2.1-6.9); NEUTROPHILS % 83.5 % (38.7-80.0); PLATELET COUNT 58 x10e3/uL (140-360); RED BLOOD COUNT 4.49 x10e6/uL (4.3-5.7); RED CELL DISTRIBUTION WIDTH 16.8 % (11.7-14.4)
[2020-12-21 11:45] LABS: INR 1.08; PROTHROMBIN TIME 14.2 seconds (11.9-14.5)
[2020-12-21 11:53] LABS: ALBUMIN 3.1 g/dL (3.5-5.0); ANION GAP 13.9 mmol/L (8-16); CALCIUM 8.6 mg/dL (8.4-10.2); POTASSIUM 3.9 mmol/L (3.5-5.1)
[2020-12-21] MEDS ORDERED: FENTANYL CITRATE/PF 100MCG/2 ML INJ IV ONE (12:00)
[2020-12-21] MEDS ORDERED: SODIUM CHLORIDE 0.9% 50ML 50 ML ONE (12:08)
[2020-12-21] MEDS ORDERED: IOPAMIDOL 370 MG/ML 200 ML INFUS..BTL INJ ONE (12:09)
[2020-12-21 12:41] LABS: CLARITY,URINE CLEAR (CLEAR); COLOR,URINE YELLOW (YELLOW)
[2020-12-21 12:42] LABS: BACTERIA,URINE FEW /HPF; EPITHELIAL CELLS,URINE FEW /LPF; KETONES,URINE NEGATIVE (NEGATIVE); LEUKOCYTE ESTERASE ,URINE NEGATIVE (NEGATIVE); NITRITE,URINE NEGATIVE (NEGATIVE); PROTEIN,URINE DIPSTICK 1+ (NEGATIVE); RBC,URINE 0-5 /HPF (0-5); URINE UROBILINOGEN 1 mg/dL (0.2 - 1); WBC,URINE (MAN) 0-5 /HPF (0-5)
[2020-12-21] MEDS: MORPHINE SULFATE INJ 4 MG/ML INJ 1ML IV PRN ×2 (14:59→20:49)
[2020-12-21] MEDS ORDERED: ONDANSETRON HCL INJ 2MG/ML 2ML 2 MG/ML VIAL IV PRN (15:00)
[2020-12-21] MEDS ORDERED: MORPHINE SULFATE INJ 4 MG/ML INJ 1ML ONE (15:04)
[2020-12-21] MEDS ORDERED: ONDANSETRON HCL INJ 2MG/ML 2ML 2 MG/ML VIAL ONE (15:05)
[2020-12-21] MEDS ORDERED: PEG (High)/E-LYTE SOLN 4,000 ML BTL PO ONE ×2 (18:00→20:30)
[2020-12-21] MEDS: METRONIDAZOLE 500MG/NS 100ML 100 ML IV SCH (18:05)
[2020-12-21] MEDS: SODIUM CHLORIDE 0.9% 1000ML 1,000 ML IV SCH (18:05)
[2020-12-21] MEDS ORDERED: BISACODYL 5 MG TAB EC PO ONE (19:30)
[2020-12-21 20:00] VITALS: BP 103/71
[2020-12-21] MEDS: PREGABALIN 50 MG CAP PO SCH (20:49)
[2020-12-21 21:57] VITALS: BP 103/71
[2020-12-21 22:02] VITALS: BP 103/71
[2020-12-21 22:12] VITALS: BP 103/71
[2020-12-21 22:32] VITALS: BP 103/71
[2020-12-22] VITALS (7 sets, daily range): BP systolic 104–135; BP diastolic 56–91
[2020-12-22] MEDS: METRONIDAZOLE 500MG/NS 100ML 100 ML IV SCH ×2 (04:53→17:39)
[2020-12-22 05:59] LABS: BASOPHILS % 0.3 % (0.0-1.0); EOSINOPHILS % 1.2 % (0.0-6.0); HEMATOCRIT 36.2 % (38.2-49.6); HEMOGLOBIN 11.9 g/dL (14.0-18.0); LYMPHOCYTES # (AUTO) 0.4 (1.0-3.2); LYMPHOCYTES % 11.6 % (18.0-39.1); MEAN CORPUSCULAR HEMOGLOBIN 29.5 pg (28-32); MEAN CORPUSCULAR HGB CONC 32.9 g/dL (31-35); MEAN CORPUSCULAR VOLUME 89.6 fL (81-99); MONOCYTES # (AUTO) 0.2 (0.2-0.8); MONOCYTES % 6.8 % (4.4-11.3); NEUTROPHILS # (AUTO) 2.7 (2.1-6.9); NEUTROPHILS % 79.5 % (38.7-80.0); RED BLOOD COUNT 4.04 x10e6/uL (4.3-5.7); RED CELL DISTRIBUTION WIDTH 16.8 % (11.7-14.4)
[2020-12-22 06:08] LABS: PLATELET COUNT 49 x10e3/uL (140-360)
[2020-12-22] MEDS: SODIUM CHLORIDE 0.9% 1000ML 1,000 ML IV SCH ×2 (06:18→20:34)
[2020-12-22 06:25] LABS: ALBUMIN 2.8 g/dL (3.5-5.0); CREATININE, SERUM 0.87 mg/dL (0.72-1.25)
[2020-12-22 06:46] LABS: THYROID STIMULATING HORMONE 4.019 uIU/mL (0.350-4.940)
[2020-12-22] MEDS: MORPHINE SULFATE INJ 4 MG/ML INJ 1ML IV PRN ×2 (08:09→20:33)
[2020-12-22] MEDS: PREGABALIN 50 MG CAP PO SCH ×3 (09:00→20:34)
[2020-12-22] MEDS: ASPIRIN 81 MG CHEW TAB PO SCH (09:38)
[2020-12-22] MEDS: HYDROCHLOROTHIAZIDE 25 MG TAB PO SCH (09:39)
[2020-12-22] MEDS: AMLODIPINE BESYLATE 5 MG TAB PO SCH (09:41)
[2020-12-22] MEDS: ATENOLOL 50 MG TAB PO SCH (09:41)
[2020-12-22] MEDS ORDERED: POTASSIUM CHLORIDE 20MEQ/100ML 100 ML IV ONE (10:00)
[2020-12-22] MEDS ORDERED: POTASSIUM CHLORIDE 20 MEQ TAB CR PO ONE (10:00)
[2020-12-22] MEDS ORDERED: POVIDONE IODINE 0.05% 0.05 % ML PO ONE (12:01)
[2020-12-22] MEDS ORDERED: LIDOCAINE HCL 2% LOCAL INJ 5 ML SDV VIAL INJ ONE (12:01)
[2020-12-22] MEDS ORDERED: PROPOFOL IV EMULSION 10 MG/ML 20 ML VIAL ONE (12:01)
[2020-12-22] MEDS: SUCRALFATE 1 GM TAB PO SCH ×2 (17:39→20:34)
[2020-12-23] VITALS (8 sets, daily range): BP systolic 94–133; BP diastolic 55–79
[2020-12-23 06:21] LABS: EOSINOPHILS % 0.5 % (0.0-6.0); HEMATOCRIT 33.9 % (38.2-49.6); HEMOGLOBIN 11.1 g/dL (14.0-18.0); LYMPHOCYTES # (AUTO) 0.3 (1.0-3.2); LYMPHOCYTES % 14.4 % (18.0-39.1); MEAN CORPUSCULAR HEMOGLOBIN 29.7 pg (28-32); MEAN CORPUSCULAR HGB CONC 32.7 g/dL (31-35); MEAN CORPUSCULAR VOLUME 90.6 fL (81-99); MONOCYTES # (AUTO) 0.1 (0.2-0.8); NEUTROPHILS # (AUTO) 1.6 (2.1-6.9); NEUTROPHILS % 77.6 % (38.7-80.0); PLATELET COUNT 52 x10e3/uL (140-360); RED BLOOD COUNT 3.74 x10e6/uL (4.3-5.7)
[2020-12-23] MEDS: METRONIDAZOLE 500MG/NS 100ML 100 ML IV SCH ×2 (06:28→19:06)
[2020-12-23 07:03] LABS: ANION GAP 12.7 mmol/L (8-16); CALCIUM 7.8 mg/dL (8.4-10.2); CREATININE, SERUM 0.99 mg/dL (0.72-1.25); POTASSIUM 3.7 mmol/L (3.5-5.1)
[2020-12-23 07:05] LABS: CHOL/HDL RATIO 4.9 (3.9-4.7)
[2020-12-23] MEDS: SUCRALFATE 1 GM TAB PO SCH ×4 (09:20→21:00)
[2020-12-23] MEDS: HYDROCHLOROTHIAZIDE 25 MG TAB PO SCH (09:22)
[2020-12-23] MEDS: PREGABALIN 50 MG CAP PO SCH ×3 (09:22→21:00)
[2020-12-23] MEDS: ASPIRIN 81 MG CHEW TAB PO SCH (09:23)
[2020-12-23] MEDS: ATENOLOL 50 MG TAB PO SCH (09:23)
[2020-12-23] MEDS: AMLODIPINE BESYLATE 5 MG TAB PO SCH (09:34)
[2020-12-23] MEDS: SODIUM CHLORIDE 0.9% 1000ML 1,000 ML IV SCH (09:35)
[2020-12-23] MEDS ORDERED: ONDANSETRON HCL 4 MG ORAL DISINTEGRATING TAB PO PRN (14:00)
[2020-12-23] MEDS ORDERED: SODIUM CHLORIDE 0.9% 250ML 250 ML ONE (18:03)
[2020-12-24] VITALS (9 sets, daily range): BP systolic 97–133; BP diastolic 61–92
[2020-12-24] MEDS: SODIUM CHLORIDE 0.9% 1000ML 1,000 ML IV SCH (04:06)
[2020-12-24] MEDS: METRONIDAZOLE 500MG/NS 100ML 100 ML IV SCH ×2 (06:36→17:13)
[2020-12-24 06:47] LABS: BASOPHILS % 0.6 % (0.0-1.0); EOSINOPHILS % 0.6 % (0.0-6.0); HEMATOCRIT 30.6 % (38.2-49.6); HEMOGLOBIN 10.1 g/dL (14.0-18.0); LYMPHOCYTES # (AUTO) 0.3 (1.0-3.2); LYMPHOCYTES % 17.9 % (18.0-39.1); MEAN CORPUSCULAR VOLUME 90.8 fL (81-99); MONOCYTES # (AUTO) 0.2 (0.2-0.8); MONOCYTES % 9.3 % (4.4-11.3); NEUTROPHILS # (AUTO) 1.2 (2.1-6.9); PLATELET COUNT 73 x10e3/uL (140-360); RED BLOOD COUNT 3.37 x10e6/uL (4.3-5.7); RED CELL DISTRIBUTION WIDTH 17.2 % (11.7-14.4)
[2020-12-24 07:00] LABS: ANION GAP 12.8 mmol/L (8-16); CALCIUM 7.9 mg/dL (8.4-10.2); CREATININE, SERUM 0.86 mg/dL (0.72-1.25)
[2020-12-24 07:17] LABS: POTASSIUM 2.8 mmol/L (3.5-5.1)
[2020-12-24] MEDS ORDERED: POTASSIUM CHLORIDE 20 MEQ TAB CR PO STA ×2 (07:56→08:23)
[2020-12-24] MEDS ORDERED: POTASSIUM CHLORIDE 20MEQ/100ML 100 ML IV ONE (08:00)
[2020-12-24 08:52] LABS: LYMPHOCYTES % (MANUAL) 14 % (19-48); MONOCYTES % (MANUAL) 6 % (3.4-9.0); NEUTROPHILS % (MANUAL) 77 % (40-74); RBC MORPHOLOGY COMMENT NORMAL
[2020-12-24 08:53] LABS: PLATELET ESTIMATE ADEQUATE; PLATELET MORPHOLOGY COMMENT FEW LARGE
[2020-12-24] MEDS: SUCRALFATE 1 GM TAB PO SCH ×4 (09:07→20:58)
[2020-12-24] MEDS: HYDROCHLOROTHIAZIDE 25 MG TAB PO SCH (09:08)
[2020-12-24] MEDS: PREGABALIN 50 MG CAP PO SCH ×3 (09:08→20:58)
[2020-12-24] MEDS: ASPIRIN 81 MG CHEW TAB PO SCH (09:08)
[2020-12-24] MEDS: AMLODIPINE BESYLATE 5 MG TAB PO SCH (09:08)
[2020-12-24] MEDS: ATENOLOL 50 MG TAB PO SCH (09:08)
[2020-12-24] MEDS: FILGRASTIM 300 MCG/ML VIAL SC SCH (12:30)
[2020-12-25] VITALS (8 sets, daily range): BP systolic 116–136; BP diastolic 66–72
[2020-12-25] MEDS: SODIUM CHLORIDE 0.9% 1000ML 1,000 ML IV SCH ×2 (00:58→20:59)
[2020-12-25] MEDS: METRONIDAZOLE 500MG/NS 100ML 100 ML IV SCH ×2 (05:52→17:32)
[2020-12-25] MEDS: FILGRASTIM 300 MCG/ML VIAL SC SCH (05:52)
[2020-12-25 07:32] LABS: BASOPHILS % 0.4 % (0.0-1.0); EOSINOPHILS % 0.8 % (0.0-6.0); HEMATOCRIT 33.1 % (38.2-49.6); HEMOGLOBIN 11.3 g/dL (14.0-18.0); LYMPHOCYTES # (AUTO) 0.4 (1.0-3.2); LYMPHOCYTES % 15.5 % (18.0-39.1); MEAN CORPUSCULAR HEMOGLOBIN 30.4 pg (28-32); MEAN CORPUSCULAR HGB CONC 34.1 g/dL (31-35); MONOCYTES # (AUTO) 0.3 (0.2-0.8); MONOCYTES % 11.2 % (4.4-11.3); NEUTROPHILS # (AUTO) 1.8 (2.1-6.9); NEUTROPHILS % 71.3 % (38.7-80.0); PLATELET COUNT 74 x10e3/uL (140-360); RED BLOOD COUNT 3.72 x10e6/uL (4.3-5.7); RED CELL DISTRIBUTION WIDTH 17.8 % (11.7-14.4)
[2020-12-25 07:42] LABS: ANION GAP 14.2 mmol/L (8-16); CALCIUM 8.1 mg/dL (8.4-10.2); CREATININE, SERUM 0.81 mg/dL (0.72-1.25); POTASSIUM 3.2 mmol/L (3.5-5.1)
[2020-12-25] MEDS ORDERED: POTASSIUM CHLORIDE 20 MEQ TAB CR PO STA (08:43)
[2020-12-25] MEDS: HYDROCHLOROTHIAZIDE 25 MG TAB PO SCH (08:45)
[2020-12-25] MEDS: AMLODIPINE BESYLATE 5 MG TAB PO SCH (08:45)
[2020-12-25] MEDS: PREGABALIN 50 MG CAP PO SCH ×3 (08:45→20:59)
[2020-12-25] MEDS: ASPIRIN 81 MG CHEW TAB PO SCH (08:45)
[2020-12-25] MEDS: SUCRALFATE 1 GM TAB PO SCH ×4 (08:45→20:59)
[2020-12-25] MEDS: ATENOLOL 50 MG TAB PO SCH (08:46)
[2020-12-25] MEDS ORDERED: MAGNESIUM SULFATE 2GM/50ML 50 ML IV ONE (17:30)
[2020-12-26] VITALS (8 sets, daily range): BP systolic 103–124; BP diastolic 59–80
[2020-12-26] MEDS: FILGRASTIM 300 MCG/ML VIAL SC SCH (05:31)
[2020-12-26] MEDS: METRONIDAZOLE 500MG/NS 100ML 100 ML IV SCH ×2 (05:31→17:45)
[2020-12-26 06:11] LABS: BASOPHILS % 0.6 % (0.0-1.0); EOSINOPHILS % 1.7 % (0.0-6.0); HEMATOCRIT 33.4 % (38.2-49.6); HEMOGLOBIN 10.8 g/dL (14.0-18.0); LYMPHOCYTES # (AUTO) 0.4 (1.0-3.2); LYMPHOCYTES % 23.7 % (18.0-39.1); MEAN CORPUSCULAR HEMOGLOBIN 29.8 pg (28-32); MEAN CORPUSCULAR HGB CONC 32.3 g/dL (31-35); MEAN CORPUSCULAR VOLUME 92.3 fL (81-99); MONOCYTES # (AUTO) 0.4 (0.2-0.8); MONOCYTES % 24.9 % (4.4-11.3); NEUTROPHILS # (AUTO) 0.8 (2.1-6.9); NEUTROPHILS % 47.4 % (38.7-80.0); PLATELET COUNT 84 x10e3/uL (140-360); RED BLOOD COUNT 3.62 x10e6/uL (4.3-5.7); RED CELL DISTRIBUTION WIDTH 17.9 % (11.7-14.4)
[2020-12-26 06:54] LABS: ANION GAP 13.3 mmol/L (8-16); CALCIUM 8.1 mg/dL (8.4-10.2); CREATININE, SERUM 0.83 mg/dL (0.72-1.25); MAGNESIUM 1.8 MG/DL (1.3-2.1); PHOSPHORUS 1.1 MG/DL (2.3-4.7); POTASSIUM 3.3 mmol/L (3.5-5.1)
[2020-12-26 07:53] LABS: BAND NEUTROPHILS % (MANUAL) 4 %; EOSINOPHILS % (MANUAL) 1 % (0-7); LYMPHOCYTES % (MANUAL) 27 % (19-48); MONOCYTES % (MANUAL) 11 % (3.4-9.0); NEUTROPHILS % (MANUAL) 56 % (40-74); NUCLEATED RED BLOOD CELLS 1
[2020-12-26 07:54] LABS: HYPOCHROMASIA SLIGHT; PLATELET ESTIMATE SLIGHTLY DECREASED; PLATELET MORPHOLOGY COMMENT FEW LARGE; POLYCHROMASIA FEW; RBC MORPHOLOGY COMMENT NORMAL
[2020-12-26] MEDS ORDERED: POTASSIUM PHOSPHATE 30 MM in SODIUM CHLORIDE 0.9% 500ML 500 ML IV ONE (09:30)
[2020-12-26] MEDS: ATENOLOL 50 MG TAB PO SCH (09:47)
[2020-12-26] MEDS: ASPIRIN 81 MG CHEW TAB PO SCH (09:47)
[2020-12-26] MEDS: HYDROCHLOROTHIAZIDE 25 MG TAB PO SCH (09:47)
[2020-12-26] MEDS: PREGABALIN 50 MG CAP PO SCH ×3 (09:47→21:05)
[2020-12-26] MEDS: AMLODIPINE BESYLATE 5 MG TAB PO SCH (09:47)
[2020-12-26] MEDS: SUCRALFATE 1 GM TAB PO SCH ×4 (09:47→21:05)
[2020-12-26] MEDS: SODIUM CHLORIDE 0.9% 1000ML 1,000 ML IV SCH (16:13)
[2020-12-26] MEDS: MORPHINE SULFATE INJ 4 MG/ML INJ 1ML IV PRN (22:27)
[2020-12-27 00:23] VITALS: BP 92/62
[2020-12-27 04:46] VITALS: BP 118/71
[2020-12-27] MEDS: FILGRASTIM 300 MCG/ML VIAL SC SCH (04:57)
[2020-12-27] MEDS: METRONIDAZOLE 500MG/NS 100ML 100 ML IV SCH (04:57)
[2020-12-27 06:14] LABS: BASOPHILS % 0.9 % (0.0-1.0); EOSINOPHILS % 1.4 % (0.0-6.0); HEMATOCRIT 34.2 % (38.2-49.6); HEMOGLOBIN 11.3 g/dL (14.0-18.0); LYMPHOCYTES # (AUTO) 0.7 (1.0-3.2); LYMPHOCYTES % 31.8 % (18.0-39.1); MEAN CORPUSCULAR HEMOGLOBIN 30.2 pg (28-32); MEAN CORPUSCULAR VOLUME 91.4 fL (81-99); MONOCYTES # (AUTO) 0.9 (0.2-0.8); MONOCYTES % 40.7 % (4.4-11.3); NEUTROPHILS # (AUTO) 0.3 (2.1-6.9); NEUTROPHILS % 15.4 % (38.7-80.0); PLATELET COUNT 79 x10e3/uL (140-360); RED BLOOD COUNT 3.74 x10e6/uL (4.3-5.7); RED CELL DISTRIBUTION WIDTH 18.6 % (11.7-14.4)
[2020-12-27 06:38] LABS: ANION GAP 15.6 mmol/L (8-16); CALCIUM 8.1 mg/dL (8.4-10.2); CREATININE, SERUM 0.93 mg/dL (0.72-1.25); PHOSPHORUS 2.6 MG/DL (2.3-4.7); POTASSIUM 3.6 mmol/L (3.5-5.1)
[2020-12-27 07:11] VITALS: BP 120/71
[2020-12-27 08:04] LABS: BAND NEUTROPHILS % (MANUAL) 1 %; LYMPHOCYTES % (MANUAL) 42 % (19-48); MONOCYTES % (MANUAL) 19 % (3.4-9.0); NEUTROPHILS % (MANUAL) 24 % (40-74); PLATELET ESTIMATE MODERATELY DECREASED; PLATELET MORPHOLOGY COMMENT NORMAL; RBC MORPHOLOGY COMMENT NORMAL
[2020-12-27 09:09] VITALS: BP 120/71
[2020-12-27] MEDS: ASPIRIN 81 MG CHEW TAB PO SCH (09:58)
[2020-12-27] MEDS: SUCRALFATE 1 GM TAB PO SCH (09:58)
[2020-12-27] MEDS: AMLODIPINE BESYLATE 5 MG TAB PO SCH (09:59)
[2020-12-27] MEDS: HYDROCHLOROTHIAZIDE 25 MG TAB PO SCH (09:59)
[2020-12-27] MEDS: ATENOLOL 50 MG TAB PO SCH (09:59)
[2020-12-27] MEDS: PREGABALIN 50 MG CAP PO SCH (09:59)
[2020-12-27 11:05] VITALS: BP 125/75
[2020-12-27] MEDS ORDERED: CARAFATE1 GM/10 ML PO (11:13)
[2020-12-27] MEDS ORDERED: PANTOPRAZOLE SO40 MG PO (11:15)
[2020-12-27] MEDS ORDERED: VENELEX OINTMEN60 GM TOP (11:19)
== END 2020-12-27 12:13 | disposition home or self-care (01) | DRG 378 ==
LOC: ER 10:50 → ERHOLD 14:25 → MED/SURG 18:36
PROVIDERS: ADMIT Internal Medicine; ATTEND Internal Medicine
PROC: 0DJD8ZZ Inspection of Lower Intestinal Tract, Via Natural or Artificial Opening Endoscopic (ICD-10-PCS; principal; 2020-12-22 13:38)
PROC: 0DB78ZX Excision of Stomach, Pylorus, Via Natural or Artificial Opening Endoscopic, Diagnostic (ICD-10-PCS; 2020-12-22 13:38)
PROC: 0DB68ZZ Excision of Stomach, Via Natural or Artificial Opening Endoscopic (ICD-10-PCS; 2020-12-22 13:38)
DX: K26.0 Acute duodenal ulcer with hemorrhage (principal); C18.9 Malignant neoplasm of colon, unspecified; C79.51 Secondary malignant neoplasm of bone; K86.2 Cyst of pancreas; E87.1 Hypo-osmolality and hyponatremia; C78.02 Secondary malignant neoplasm of left lung; C78.01 Secondary malignant neoplasm of right lung; R55 Syncope and collapse; E83.39 Other disorders of phosphorus metabolism; K64.8 Other hemorrhoids; K31.7 Polyp of stomach and duodenum; K29.00 Acute gastritis without bleeding; I10 Essential (primary) hypertension; E78.5 Hyperlipidemia, unspecified; D75.1 Secondary polycythemia; Z96.652 Presence of left artificial knee joint; E86.0 Dehydration; F07.81 Postconcussional syndrome; K62.89 Other specified diseases of anus and rectum; K80.80 Other cholelithiasis without obstruction; K57.30 Diverticulosis of large intestine without perforation or abscess without bleeding; D50.0 Iron deficiency anemia secondary to blood loss (chronic); E87.6 Hypokalemia; Z86.711 Personal history of pulmonary embolism; Z87.891 Personal history of nicotine dependence; Z79.01 Long term (current) use of anticoagulants
CPT/HCPCS: 36415; 43239; 43251; 45378; 70450; 71045; 71260; 74177; 80048; 80053; 80061; 81001; 83036; 83735; 84100; 84132; 84443; 84484; 85025; 85610; 86900; 88305; 88312; 93005; 93306; 93880; 96361; 97139; 99284; J1442; J2001; J2270; J2405; J3010; J3475; J3480; J7030; J7040; J7050; P9034; Q9967; U0002

== ENCOUNTER 2021-01-13 02:52 | Inpatient (IN) | payer MEDICARE ==
[2021-01-13] VITALS (7 sets, daily range): BP systolic 93–113; BP diastolic 46–63
[~2021-01-13] VITALS: Ht 177.8 cm; Wt 89.4 kg
[~2021-01-13 02:52] MED LIST changes: +CARAFATE1 GM/10 ML PO; +PANTOPRAZOLE SO40 MG PO; +VENELEX OINTMEN60 GM TOP
[2021-01-13 03:13] LABS: BASOPHILS % 0.1 % (0.0-1.0); EOSINOPHILS % 0.1 % (0.0-6.0); LYMPHOCYTES # (AUTO) 1.7 (1.0-3.2); MEAN CORPUSCULAR HEMOGLOBIN 29.8 pg (28-32); MEAN CORPUSCULAR HGB CONC 30.4 g/dL (31-35); MEAN CORPUSCULAR VOLUME 97.9 fL (81-99); MONOCYTES # (AUTO) 1.1 (0.2-0.8); MONOCYTES % 6.4 % (4.4-11.3); NEUTROPHILS % 82.3 % (38.7-80.0); PLATELET COUNT 173 x10e3/uL (140-360); RED BLOOD COUNT 2.35 x10e6/uL (4.3-5.7); RED CELL DISTRIBUTION WIDTH 19.1 % (11.7-14.4)
[2021-01-13] MEDS ORDERED: SODIUM CHLORIDE 0.9% 500ML 500 ML IV ONE ×2 (03:15)
[2021-01-13 03:19] LABS: INR 2.77; PROTHROMBIN TIME 29.7 seconds (11.9-14.5)
[2021-01-13 03:20] LABS: PARTIAL THROMBOPLASTIN TIME 44.4 seconds (23.8-35.5)
[2021-01-13 03:29] LABS: ALBUMIN 2.3 g/dL (3.5-5.0); ANION GAP 15.2 mmol/L (8-16); CALCIUM 7.9 mg/dL (8.4-10.2); CREATININE, SERUM 0.89 mg/dL (0.72-1.25); POTASSIUM 5.2 mmol/L (3.5-5.1)
[2021-01-13] MEDS ORDERED: CEFEPIME 1 GM in SODIUM CHLORIDE 0.9% 50ML 50 ML IV ONE (03:30)
[2021-01-13] MEDS ORDERED: SODIUM CHLORIDE 0.9% 250ML 250 ML IV ONE (03:30)
[2021-01-13 03:35] LABS: CREATINE KINASE MB 0.6 ng/mL (0-5.0)
[2021-01-13] MEDS ORDERED: IOPAMIDOL 370 MG/ML 200 ML INFUS..BTL INJ ONE (03:55)
[2021-01-13] MEDS ORDERED: SODIUM CHLORIDE 0.9% 100 ML ONE (03:55)
[2021-01-13] MEDS ORDERED: ONDANSETRON HCL INJ 2MG/ML 2ML 2 MG/ML VIAL IV STA (04:31)
[2021-01-13 04:45] LABS: CLARITY,URINE CLEAR (CLEAR); COLOR,URINE YELLOW (YELLOW); KETONES,URINE NEGATIVE (NEGATIVE); LEUKOCYTE ESTERASE ,URINE NEGATIVE (NEGATIVE); NITRITE,URINE NEGATIVE (NEGATIVE); PROTEIN,URINE DIPSTICK NEGATIVE (NEGATIVE); URINE UROBILINOGEN 0.2 mg/dL (0.2 - 1)
[2021-01-13] MEDS: SODIUM CHLORIDE 0.9% 1000ML 1,000 ML IV SCH ×2 (04:45→07:50)
[2021-01-13 04:48] LABS: BACTERIA,URINE FEW /HPF; EPITHELIAL CELLS,URINE RARE /LPF; RBC,URINE 0-5 /HPF (0-5); WBC,URINE (MAN) 0-5 /HPF (0-5)
[2021-01-13] MEDS ORDERED: ONDANSETRON HCL INJ 2MG/ML 2ML 2 MG/ML VIAL IV PRN (06:30)
[2021-01-13] MEDS ORDERED: DOCUSATE SODIUM 100 MG CAP PO PRN (06:30)
[2021-01-13] MEDS ORDERED: BENZONATATE 100 MG CAP PO PRN (06:45)
[2021-01-13] MEDS ORDERED: SUCRALFATE 1 GM/10 ML SUSP PO SCH (07:30)
[2021-01-13] MEDS: AMLODIPINE BESYLATE 5 MG TAB PO SCH ×2 (09:00→09:56)
[2021-01-13] MEDS ORDERED: ATENOLOL 50 MG TAB PO SCH (09:00)
[2021-01-13] MEDS ORDERED: PREGABALIN 50 MG CAP PO SCH (09:00)
[2021-01-13] MEDS ORDERED: MULTIVITAMINS/MINERALS TAB PO SCH (09:00)
[2021-01-13] MEDS: CEFTRIAXONE 1 GM in SODIUM CHLORIDE 0.9% 50ML 50 ML IV SCH (09:01)
[2021-01-13 09:18] LABS: HEMATOCRIT 22.8 % (38.2-49.6)
[2021-01-13 10:12] LABS: INR 2.58; PROTHROMBIN TIME 28.1 seconds (11.9-14.5)
[2021-01-13 10:17] LABS: FERRITIN 363.51 ng/mL (21.81-274.66)
[2021-01-13] MEDS ORDERED: SODIUM CHLORIDE 0.9% 250ML 250 ML ONE (11:16)
[2021-01-13 12:12] LABS: CREATINE KINASE MB 0.5 ng/mL (0-5.0)
[2021-01-13 18:06] LABS: HEMATOCRIT 25.1 % (38.2-49.6); HEMOGLOBIN 7.9 g/dL (14.0-18.0)
[2021-01-13 18:39] LABS: CREATINE KINASE MB 0.4 ng/mL (0-5.0)
[2021-01-13] MEDS: ZOLPIDEM TARTRATE 5 MG TAB PO PRN (22:16)
[2021-01-14] VITALS (12 sets, daily range): BP systolic 86–120; BP diastolic 47–61
[2021-01-14 00:22] LABS: HEMATOCRIT 23.5 % (38.2-49.6)
[2021-01-14] MEDS: SODIUM CHLORIDE 0.9% 1000ML 1,000 ML IV SCH (00:27)
[2021-01-14 07:06] LABS: HEMATOCRIT 20.3 % (38.2-49.6); HEMOGLOBIN 6.3 g/dL (14.0-18.0)
[2021-01-14] MEDS: AMLODIPINE BESYLATE 5 MG TAB PO SCH ×2 (09:00→10:00)
[2021-01-14] MEDS ORDERED: SODIUM CHLORIDE 0.9% 250ML 250 ML IV ONE (09:15)
[2021-01-14] MEDS: CEFTRIAXONE 1 GM in SODIUM CHLORIDE 0.9% 50ML 50 ML IV SCH (10:04)
[2021-01-14] MEDS ORDERED: CEFTRIAXONE 1 GM VIAL ONE (10:09)
[2021-01-14] MEDS ORDERED: SODIUM CHLORIDE 0.9% 50ML 50 ML ONE (10:13)
[2021-01-14] MEDS ORDERED: SODIUM CHLORIDE 0.9% 250ML 250 ML ONE (10:27)
[2021-01-14 16:34] LABS: BASOPHILS % 0.3 % (0.0-1.0); EOSINOPHILS # (AUTO) 0.1 (0.0-0.4); EOSINOPHILS % 1.3 % (0.0-6.0); HEMATOCRIT 26.3 % (38.2-49.6); HEMOGLOBIN 8.2 g/dL (14.0-18.0); LYMPHOCYTES # (AUTO) 0.7 (1.0-3.2); LYMPHOCYTES % 11.8 % (18.0-39.1); MEAN CORPUSCULAR HEMOGLOBIN 29.3 pg (28-32); MEAN CORPUSCULAR HGB CONC 31.2 g/dL (31-35); MEAN CORPUSCULAR VOLUME 93.9 fL (81-99); MONOCYTES # (AUTO) 0.1 (0.2-0.8); MONOCYTES % 1.8 % (4.4-11.3); NEUTROPHILS # (AUTO) 5.1 (2.1-6.9); NEUTROPHILS % 83.7 % (38.7-80.0); PLATELET COUNT 89 x10e3/uL (140-360); RED CELL DISTRIBUTION WIDTH 18.4 % (11.7-14.4)
[2021-01-14 16:45] LABS: INR 1.58; PROTHROMBIN TIME 19.4 seconds (11.9-14.5)
[2021-01-14 16:46] LABS: PARTIAL THROMBOPLASTIN TIME 30.1 seconds (23.8-35.5)
[2021-01-14] MEDS ORDERED: EPINEPHRINE HCL 1:1000 1ML 1 MG/ML AMP ONE (17:08)
[2021-01-14] MEDS: ZOLPIDEM TARTRATE 5 MG TAB PO PRN (20:27)
[2021-01-14 23:30] LABS: HEMATOCRIT 22.2 % (38.2-49.6)
[2021-01-15] VITALS (10 sets, daily range): BP systolic 97–132; BP diastolic 58–68
[2021-01-15] MEDS: SODIUM CHLORIDE 0.9% 1000ML 1,000 ML IV SCH ×3 (02:08→23:31)
[2021-01-15 08:00] LABS: BASOPHILS % 0.2 % (0.0-1.0); EOSINOPHILS # (AUTO) 0.1 (0.0-0.4); EOSINOPHILS % 2.7 % (0.0-6.0); HEMATOCRIT 21.7 % (38.2-49.6); HEMOGLOBIN 7.2 g/dL (14.0-18.0); LYMPHOCYTES # (AUTO) 0.6 (1.0-3.2); LYMPHOCYTES % 13.8 % (18.0-39.1); MEAN CORPUSCULAR HEMOGLOBIN 29.8 pg (28-32); MEAN CORPUSCULAR HGB CONC 33.2 g/dL (31-35); MEAN CORPUSCULAR VOLUME 89.7 fL (81-99); MONOCYTES # (AUTO) 0.1 (0.2-0.8); NEUTROPHILS # (AUTO) 3.2 (2.1-6.9); NEUTROPHILS % 78.8 % (38.7-80.0); PLATELET COUNT 70 x10e3/uL (140-360); RED BLOOD COUNT 2.42 x10e6/uL (4.3-5.7); RED CELL DISTRIBUTION WIDTH 19.1 % (11.7-14.4)
[2021-01-15] MEDS: AMLODIPINE BESYLATE 5 MG TAB PO SCH (09:00)
[2021-01-15] MEDS: CEFTRIAXONE 1 GM in SODIUM CHLORIDE 0.9% 50ML 50 ML IV SCH (09:01)
[2021-01-15] MEDS ORDERED: SODIUM CHLORIDE 0.9% 250ML 250 ML IV ONE (10:45)
[2021-01-15] MEDS ORDERED: SODIUM CHLORIDE 0.9% 250ML 250 ML ONE (13:09)
[2021-01-15] MEDS ORDERED: PEG (High)/E-LYTE SOLN 4,000 ML BTL PO ONE (14:00)
[2021-01-15 22:36] LABS: HEMATOCRIT 25.4 % (38.2-49.6); HEMOGLOBIN 8.1 g/dL (14.0-18.0)
[2021-01-16] VITALS (10 sets, daily range): BP systolic 80–140; BP diastolic 60–79
[2021-01-16 06:10] LABS: BASOPHILS % 0.6 % (0.0-1.0); EOSINOPHILS # (AUTO) 0.1 (0.0-0.4); EOSINOPHILS % 3.6 % (0.0-6.0); HEMATOCRIT 23.6 % (38.2-49.6); HEMOGLOBIN 7.8 g/dL (14.0-18.0); LYMPHOCYTES # (AUTO) 0.4 (1.0-3.2); MEAN CORPUSCULAR HEMOGLOBIN 28.9 pg (28-32); MEAN CORPUSCULAR HGB CONC 33.1 g/dL (31-35); MEAN CORPUSCULAR VOLUME 87.4 fL (81-99); MONOCYTES # (AUTO) 0.1 (0.2-0.8); MONOCYTES % 1.7 % (4.4-11.3); NEUTROPHILS % 82.5 % (38.7-80.0); PLATELET COUNT 58 x10e3/uL (140-360); RED CELL DISTRIBUTION WIDTH 17.8 % (11.7-14.4)
[2021-01-16 06:30] LABS: INR 1.33
[2021-01-16 06:31] LABS: PARTIAL THROMBOPLASTIN TIME 39.4 seconds (23.8-35.5)
[2021-01-16 06:34] LABS: CALCIUM 7.4 mg/dL (8.4-10.2)
[2021-01-16 07:06] LABS: CREATININE, SERUM 0.71 mg/dL (0.72-1.25)
[2021-01-16 08:24] LABS: EOSINOPHILS % (MANUAL) 2 % (0-7); LYMPHOCYTES % (MANUAL) 5 % (19-48); MONOCYTES % (MANUAL) 1 % (3.4-9.0); NEUTROPHILS % (MANUAL) 92 % (40-74)
[2021-01-16 08:25] LABS: PLATELET ESTIMATE MODERATELY DECREASED; PLATELET MORPHOLOGY COMMENT FEW GIANT; RBC MORPHOLOGY COMMENT NORMAL
[2021-01-16] MEDS: AMLODIPINE BESYLATE 5 MG TAB PO SCH (08:36)
[2021-01-16] MEDS: CEFTRIAXONE 1 GM in SODIUM CHLORIDE 0.9% 50ML 50 ML IV SCH (08:36)
[2021-01-16] MEDS: SODIUM CHLORIDE 0.9% 1000ML 1,000 ML IV SCH ×2 (12:45→21:24)
[2021-01-16 13:39] LABS: HEMATOCRIT 26.7 % (38.2-49.6); HEMOGLOBIN 8.4 g/dL (14.0-18.0)
[2021-01-16] MEDS ORDERED: ATENOLOL 50 MG TAB PO ONE (20:45)
[2021-01-16] MEDS ORDERED: HYDROCHLOROTHIAZIDE 25 MG TAB PO ONE (20:45)
[2021-01-16] MEDS: SUCRALFATE 1 GM/10 ML SUSP NG SCH (21:24)
[2021-01-16] MEDS: ZOLPIDEM TARTRATE 5 MG TAB PO PRN (21:24)
[2021-01-16] MEDS: PREGABALIN 50 MG CAP PO SCH (21:24)
[2021-01-16] MEDS ORDERED: PSYLLIUM 6GM PACKET PO PRN (23:45)
[2021-01-17] VITALS (8 sets, daily range): BP systolic 78–133; BP diastolic 42–75
[2021-01-17 03:54] LABS: BASOPHILS % 0.5 % (0.0-1.0); EOSINOPHILS # (AUTO) 0.1 (0.0-0.4); EOSINOPHILS % 2.9 % (0.0-6.0); HEMATOCRIT 24.1 % (38.2-49.6); HEMOGLOBIN 7.8 g/dL (14.0-18.0); LYMPHOCYTES # (AUTO) 0.4 (1.0-3.2); LYMPHOCYTES % 10.2 % (18.0-39.1); MEAN CORPUSCULAR HEMOGLOBIN 28.9 pg (28-32); MEAN CORPUSCULAR HGB CONC 32.4 g/dL (31-35); MEAN CORPUSCULAR VOLUME 89.3 fL (81-99); MONOCYTES # (AUTO) 0.1 (0.2-0.8); MONOCYTES % 2.4 % (4.4-11.3); NEUTROPHILS # (AUTO) 3.5 (2.1-6.9); NEUTROPHILS % 83.5 % (38.7-80.0); PLATELET COUNT 67 x10e3/uL (140-360); RED CELL DISTRIBUTION WIDTH 17.4 % (11.7-14.4)
[2021-01-17 04:08] LABS: ALBUMIN 1.9 g/dL (3.5-5.0); ANION GAP 9.6 mmol/L (8-16); CALCIUM 7.1 mg/dL (8.4-10.2); CREATININE, SERUM 0.74 mg/dL (0.72-1.25); POTASSIUM 3.6 mmol/L (3.5-5.1)
[2021-01-17 04:25] LABS: INR 1.23
[2021-01-17 04:26] LABS: PARTIAL THROMBOPLASTIN TIME 40.6 seconds (23.8-35.5)
[2021-01-17] MEDS ORDERED: SODIUM CHLORIDE 0.9% 500ML 500 ML IV ONE (04:30)
[2021-01-17] MEDS: CEFTRIAXONE 1 GM in SODIUM CHLORIDE 0.9% 50ML 50 ML IV SCH (07:56)
[2021-01-17] MEDS: SUCRALFATE 1 GM/10 ML SUSP NG SCH ×2 (07:56→11:38)
[2021-01-17] MEDS: AMLODIPINE BESYLATE 5 MG TAB PO SCH (07:56)
[2021-01-17] MEDS: PREGABALIN 50 MG CAP PO SCH (07:57)
[2021-01-17 08:10] LABS: EOSINOPHILS % (MANUAL) 4 % (0-7); LYMPHOCYTES % (MANUAL) 9 % (19-48); MONOCYTES % (MANUAL) 1 % (3.4-9.0); NEUTROPHILS % (MANUAL) 86 % (40-74); PLATELET ESTIMATE MODERATELY DECREASED; PLATELET MORPHOLOGY COMMENT NORMAL; RBC MORPHOLOGY COMMENT NORMAL
[2021-01-17] MEDS ORDERED: ATENOLOL 50 MG TAB PO SCH (09:00)
[2021-01-17] MEDS ORDERED: FOLIC ACID/CYANOCOB/PYRIDOXINE TAB PO SCH (09:00)
[2021-01-17] MEDS ORDERED: HYDROCHLOROTHIAZIDE 25 MG TAB PO SCH (09:00)
[2021-01-17] MEDS ORDERED: ATENOLOL50 MG PO (13:00)
[2021-01-17] MEDS ORDERED: Psyllium PO (13:00)
[2021-01-17] MEDS ORDERED: SODIUM CHLORIDE FLUSH 10 ML SYR IV ONE (14:00)
[2021-01-17] MEDS ORDERED: HEPARIN SOD (PORCINE) 1000 UNIT/ML SDV IV NR (14:15)
== END 2021-01-17 14:42 | disposition home or self-care (01) | DRG 377 ==
LOC: ER 02:57 → ERHOLD 04:50 → IMCU 10:52
PROVIDERS: ADMIT Internal Medicine; ATTEND Internal Medicine
PROC: 30233N1 Transfusion of Nonautologous Red Blood Cells into Peripheral Vein, Percutaneous Approach (ICD-10-PCS; 2021-01-13)
PROC: 0DJ08ZZ Inspection of Upper Intestinal Tract, Via Natural or Artificial Opening Endoscopic (ICD-10-PCS; 2021-01-14)
PROC: 02HV33Z Insertion of Infusion Device into Superior Vena Cava, Percutaneous Approach (ICD-10-PCS; principal; 2021-01-14 17:19)
PROC: 0DJD8ZZ Inspection of Lower Intestinal Tract, Via Natural or Artificial Opening Endoscopic (ICD-10-PCS; 2021-01-16)
DX: K57.31 Diverticulosis of large intestine without perforation or abscess with bleeding (principal); J96.00 Acute respiratory failure, unspecified whether with hypoxia or hypercapnia; J18.9 Pneumonia, unspecified organism; C18.9 Malignant neoplasm of colon, unspecified; C79.51 Secondary malignant neoplasm of bone; E87.2 Acidosis; C78.02 Secondary malignant neoplasm of left lung; C78.01 Secondary malignant neoplasm of right lung; K86.3 Pseudocyst of pancreas; I10 Essential (primary) hypertension; E78.5 Hyperlipidemia, unspecified; D64.9 Anemia, unspecified; R07.9 Chest pain, unspecified; K64.8 Other hemorrhoids; K29.71 Gastritis, unspecified, with bleeding; K44.9 Diaphragmatic hernia without obstruction or gangrene; Z79.01 Long term (current) use of anticoagulants; E66.9 Obesity, unspecified; Z86.711 Personal history of pulmonary embolism; Z96.652 Presence of left artificial knee joint; E87.5 Hyperkalemia; D69.6 Thrombocytopenia, unspecified; K80.20 Calculus of gallbladder without cholecystitis without obstruction; E86.0 Dehydration; Z68.28 Body mass index [BMI] 28.0-28.9, adult; Z20.822 Contact with and (suspected) exposure to COVID-19
CPT/HCPCS: 36415; 43235; 45378; 71045; 74174; 80048; 80053; 81001; 82270; 82550; 82553; 82607; 82728; 83036; 83540; 83605; 84466; 84484; 85014; 85018; 85025; 85379; 85610; 85730; 86850; 86900; 86920; 87040; 93005; 99251; 99285; J0171; J0456; J0692; J0696; J1644; J2405; J7030; J7040; J7050; P9016; Q9967; U0002

== ENCOUNTER 2021-07-20 07:46 | Emergency (ER) | payer MEDICARE ==
[~2021-07-20] VITALS: Ht 177.8 cm; Wt 89.4 kg
[~2021-07-20 07:46] MED LIST changes: +Psyllium PO
[2021-07-20 08:12] LABS: BASOPHILS % 0.3 % (0.0-1.0); EOSINOPHILS # (AUTO) 0.3 (0.0-0.4); EOSINOPHILS % 3.4 % (0.0-6.0); HEMATOCRIT 51.1 % (38.2-49.6); HEMOGLOBIN 16.9 g/dL (14.0-18.0); LYMPHOCYTES # (AUTO) 1.6 (1.0-3.2); LYMPHOCYTES % 21.5 % (18.0-39.1); MEAN CORPUSCULAR HEMOGLOBIN 28.5 pg (28-32); MEAN CORPUSCULAR HGB CONC 33.1 g/dL (31-35); MONOCYTES # (AUTO) 0.9 (0.2-0.8); MONOCYTES % 11.6 % (4.4-11.3); NEUTROPHILS # (AUTO) 4.5 (2.1-6.9); NEUTROPHILS % 62.2 % (38.7-80.0); PLATELET COUNT 106 x10e3/uL (140-360); RED BLOOD COUNT 5.94 x10e6/uL (4.3-5.7); RED CELL DISTRIBUTION WIDTH 15.9 % (11.7-14.4)
[2021-07-20 08:28] LABS: INR 0.94; PROTHROMBIN TIME 13.4 seconds (11.9-14.5)
[2021-07-20 08:37] LABS: ALBUMIN 3.5 g/dL (3.5-5.0); ALBUMIN/GLOBULIN RATIO 0.9 (0.8-2.0); ANION GAP 14.1 mmol/L (8-16); CALCIUM 9.7 mg/dL (8.4-10.2); CREATININE, SERUM 0.93 mg/dL (0.72-1.25); POTASSIUM 4.1 mmol/L (3.5-5.1)
[2021-07-20] MEDS ORDERED: SODIUM CHLORIDE 0.9% 50ML 50 ML ONE (09:05)
[2021-07-20] MEDS ORDERED: IOPAMIDOL 370 MG/ML 200 ML INFUS..BTL INJ ONE (09:05)
[2021-07-20 10:46] VITALS: BP 140/91
== END 2021-07-20 10:49 | disposition home or self-care (01) ==
LOC: ER 08:10
DX: R04.2 Hemoptysis (principal); C78.00 Secondary malignant neoplasm of unspecified lung; Z85.038 Personal history of other malignant neoplasm of large intestine; Z20.822 Contact with and (suspected) exposure to COVID-19
CPT/HCPCS: 36415; 71045; 71260; 80053; 83880; 84484; 85025; 85610; 86850; 86900; 93005; 99284; Q9967; U0002

== ENCOUNTER 2021-08-29 10:49 | Inpatient (IN) | payer MEDICARE ==
[~2021-08-29] VITALS: Ht 172.7 cm; Wt 89.4 kg
[2021-08-29] VITALS (24 sets, daily range): BP systolic 90–108; BP diastolic 45–66
[2021-08-29] MEDS ORDERED: ONDANSETRON HCL INJ 2MG/ML 2ML 2 MG/ML VIAL IV STA (11:05)
[2021-08-29] MEDS ORDERED: SODIUM CHLORIDE 0.9% 1000ML 1,000 ML IV ONE ×3 (11:15→13:00)
[2021-08-29 11:21] LABS: BASOPHILS % 0.3 % (0.0-1.0); EOSINOPHILS # (AUTO) 0.6 (0.0-0.4); EOSINOPHILS % 4.2 % (0.0-6.0); HEMATOCRIT 40.1 % (38.2-49.6); HEMOGLOBIN 13.2 g/dL (14.0-18.0); LYMPHOCYTES # (AUTO) 1.8 (1.0-3.2); LYMPHOCYTES % 13.6 % (18.0-39.1); MEAN CORPUSCULAR HEMOGLOBIN 28.8 pg (28-32); MEAN CORPUSCULAR HGB CONC 32.9 g/dL (31-35); MEAN CORPUSCULAR VOLUME 87.6 fL (81-99); MONOCYTES # (AUTO) 1.3 (0.2-0.8); MONOCYTES % 9.5 % (4.4-11.3); NEUTROPHILS # (AUTO) 9.5 (2.1-6.9); NEUTROPHILS % 71.4 % (38.7-80.0); PLATELET COUNT 196 x10e3/uL (140-360); RED BLOOD COUNT 4.58 x10e6/uL (4.3-5.7); RED CELL DISTRIBUTION WIDTH 15.9 % (11.7-14.4)
[2021-08-29] MEDS ORDERED: OCTREOTIDE ACETATE 0.05 MG/ML AMP IV STA (11:21)
[2021-08-29] MEDS ORDERED: SODIUM CHLORIDE 0.9% 1000ML 1,000 ML IV STA (11:30)
[2021-08-29] MEDS ORDERED: SODIUM CHLORIDE 0.9% 1000ML 1,000 ML ONE ×3 (11:34→13:20)
[2021-08-29 11:35] LABS: PROTHROMBIN TIME 14.1 seconds (11.9-14.5)
[2021-08-29 11:36] LABS: PARTIAL THROMBOPLASTIN TIME 34.8 seconds (23.8-35.5)
[2021-08-29 11:42] LABS: ALANINE AMINOTRANSFERASE 32 IU/L (0-55); ALBUMIN 2.9 g/dL (3.5-5.0); ALBUMIN/GLOBULIN RATIO 0.9 (0.8-2.0); ALKALINE PHOSPHATASE 188 IU/L (40-150); ANION GAP 14.9 mmol/L (8-16); BLOOD UREA NITROGEN 17 mg/dL (7-26); BUN/CREATININE RATIO 20 (6-25); CALCIUM 8.9 mg/dL (8.4-10.2); CARBON DIOXIDE 26 mmol/L (22-29); CHLORIDE 97 mmol/L (98-107); CREATINE KINASE 40 IU/L (30-200); CREATININE, SERUM 0.84 mg/dL (0.72-1.25); EST GLOMERULAR FILTRATION RATE 87 ML/MIN (60-); GLUCOSE 125 mg/dL (74-118); POTASSIUM 4.9 mmol/L (3.5-5.1); SODIUM 133 mmol/L (136-145)
[2021-08-29] MEDS ORDERED: SODIUM CHLORIDE 0.9% 100 ML ONE (12:04)
[2021-08-29] MEDS ORDERED: IOPAMIDOL 370 MG/ML 100 ML INFUS..BTL INJ ONE ×2 (12:04→12:52)
[2021-08-29] MEDS: OCTREOTIDE ACETATE 500 MCG in SODIUM CHLORIDE 0.9% 250ML 249 ML IV SCH ×2 (12:34→19:25)
[2021-08-29] MEDS ORDERED: SODIUM CHLORIDE 0.9% 1000ML 1,000 ML IV SCH (12:45)
[2021-08-29] MEDS ORDERED: LIDOCAINE HCL 1% LOCAL INJ 20 ML VIAL ONE (12:52)
[2021-08-29] MEDS ORDERED: HEPARIN SOD/SOD CHLORIDE 2,000 ML ONE (12:52)
[2021-08-29 12:55] LABS: BASOPHILS % 0.2 % (0.0-1.0); EOSINOPHILS # (AUTO) 0.3 (0.0-0.4); HEMATOCRIT 29.1 % (38.2-49.6); HEMOGLOBIN 9.4 g/dL (14.0-18.0); LYMPHOCYTES # (AUTO) 0.8 (1.0-3.2); LYMPHOCYTES % 9.1 % (18.0-39.1); MEAN CORPUSCULAR HEMOGLOBIN 28.7 pg (28-32); MEAN CORPUSCULAR HGB CONC 32.3 g/dL (31-35); MONOCYTES # (AUTO) 0.7 (0.2-0.8); MONOCYTES % 8.1 % (4.4-11.3); NEUTROPHILS # (AUTO) 6.6 (2.1-6.9); NEUTROPHILS % 78.6 % (38.7-80.0); PLATELET COUNT 111 x10e3/uL (140-360); RED BLOOD COUNT 3.27 x10e6/uL (4.3-5.7); RED CELL DISTRIBUTION WIDTH 15.6 % (11.7-14.4)
[2021-08-29] MEDS ORDERED: FENTANYL CITRATE/PF 100MCG/2 ML INJ ONE (13:43)
[2021-08-29] MEDS ORDERED: LORAZEPAM 0.5 MG TAB PO PRN (15:45)
[2021-08-29] MEDS ORDERED: ONDANSETRON HCL INJ 2MG/ML 2ML 2 MG/ML VIAL IV PRN (15:45)
[2021-08-29] MEDS ORDERED: ACETAMINOPHEN 325 MG TAB PO PRN (15:45)
[2021-08-29] MEDS ORDERED: ZOLPIDEM TARTRATE 5 MG TAB PO PRN (15:45)
[2021-08-29 18:29] LABS: BASOPHILS % 0.4 % (0.0-1.0); EOSINOPHILS # (AUTO) 0.3 (0.0-0.4); EOSINOPHILS % 2.2 % (0.0-6.0); HEMATOCRIT 34.5 % (38.2-49.6); HEMOGLOBIN 11.2 g/dL (14.0-18.0); LYMPHOCYTES # (AUTO) 1.6 (1.0-3.2); LYMPHOCYTES % 13.8 % (18.0-39.1); MEAN CORPUSCULAR HEMOGLOBIN 28.7 pg (28-32); MEAN CORPUSCULAR HGB CONC 32.5 g/dL (31-35); MEAN CORPUSCULAR VOLUME 88.5 fL (81-99); MONOCYTES # (AUTO) 1.1 (0.2-0.8); MONOCYTES % 9.7 % (4.4-11.3); NEUTROPHILS # (AUTO) 8.2 (2.1-6.9); NEUTROPHILS % 72.8 % (38.7-80.0); PLATELET COUNT 142 x10e3/uL (140-360); RED CELL DISTRIBUTION WIDTH 15.9 % (11.7-14.4)
[2021-08-29 18:45] LABS: CREATINE KINASE 36 IU/L (30-200)
[2021-08-29 23:47] LABS: BASOPHILS % 0.3 % (0.0-1.0); EOSINOPHILS # (AUTO) 0.4 (0.0-0.4); HEMATOCRIT 33.7 % (38.2-49.6); HEMOGLOBIN 10.9 g/dL (14.0-18.0); LYMPHOCYTES # (AUTO) 2.2 (1.0-3.2); LYMPHOCYTES % 16.9 % (18.0-39.1); MEAN CORPUSCULAR HEMOGLOBIN 28.7 pg (28-32); MEAN CORPUSCULAR HGB CONC 32.3 g/dL (31-35); MEAN CORPUSCULAR VOLUME 88.7 fL (81-99); MONOCYTES # (AUTO) 1.2 (0.2-0.8); MONOCYTES % 9.2 % (4.4-11.3); NEUTROPHILS # (AUTO) 9.1 (2.1-6.9); NEUTROPHILS % 69.6 % (38.7-80.0); PLATELET COUNT 170 x10e3/uL (140-360); RED CELL DISTRIBUTION WIDTH 15.9 % (11.7-14.4)
[2021-08-30] VITALS (16 sets, daily range): BP systolic 103–124; BP diastolic 53–63
[2021-08-30 00:01] LABS: CREATINE KINASE 34 IU/L (30-200)
[2021-08-30 04:56] LABS: BASOPHILS # (AUTO) 0.1 (0.0-0.1); BASOPHILS % 0.4 % (0.0-1.0); EOSINOPHILS # (AUTO) 0.4 (0.0-0.4); EOSINOPHILS % 3.6 % (0.0-6.0); HEMATOCRIT 32.6 % (38.2-49.6); HEMOGLOBIN 10.6 g/dL (14.0-18.0); LYMPHOCYTES # (AUTO) 1.8 (1.0-3.2); LYMPHOCYTES % 15.5 % (18.0-39.1); MEAN CORPUSCULAR HEMOGLOBIN 28.8 pg (28-32); MEAN CORPUSCULAR HGB CONC 32.5 g/dL (31-35); MEAN CORPUSCULAR VOLUME 88.6 fL (81-99); MONOCYTES # (AUTO) 1.2 (0.2-0.8); MONOCYTES % 10.1 % (4.4-11.3); NEUTROPHILS # (AUTO) 8.1 (2.1-6.9); NEUTROPHILS % 69.5 % (38.7-80.0); PLATELET COUNT 151 x10e3/uL (140-360); RED BLOOD COUNT 3.68 x10e6/uL (4.3-5.7); RED CELL DISTRIBUTION WIDTH 15.9 % (11.7-14.4)
[2021-08-30 05:16] LABS: ALBUMIN 2.5 g/dL (3.5-5.0); ANION GAP 14.5 mmol/L (8-16); CALCIUM 7.8 mg/dL (8.4-10.2); CREATININE, SERUM 0.75 mg/dL (0.72-1.25); POTASSIUM 4.5 mmol/L (3.5-5.1)
[2021-08-30] MEDS: OCTREOTIDE ACETATE 500 MCG in SODIUM CHLORIDE 0.9% 250ML 249 ML IV SCH ×2 (05:51→18:01)
[2021-08-30 12:08] LABS: BASOPHILS # (AUTO) 0.1 (0.0-0.1); BASOPHILS % 0.4 % (0.0-1.0); EOSINOPHILS # (AUTO) 0.6 (0.0-0.4); EOSINOPHILS % 4.1 % (0.0-6.0); HEMATOCRIT 34.1 % (38.2-49.6); LYMPHOCYTES # (AUTO) 2.3 (1.0-3.2); MEAN CORPUSCULAR HEMOGLOBIN 28.7 pg (28-32); MEAN CORPUSCULAR HGB CONC 32.3 g/dL (31-35); MONOCYTES # (AUTO) 1.3 (0.2-0.8); MONOCYTES % 9.9 % (4.4-11.3); NEUTROPHILS # (AUTO) 9.1 (2.1-6.9); NEUTROPHILS % 67.6 % (38.7-80.0); PLATELET COUNT 165 x10e3/uL (140-360); RED BLOOD COUNT 3.83 x10e6/uL (4.3-5.7); RED CELL DISTRIBUTION WIDTH 15.8 % (11.7-14.4)
[2021-08-30 18:28] LABS: BASOPHILS # (AUTO) 0.1 (0.0-0.1); BASOPHILS % 0.5 % (0.0-1.0); EOSINOPHILS # (AUTO) 0.6 (0.0-0.4); EOSINOPHILS % 5.3 % (0.0-6.0); HEMATOCRIT 33.1 % (38.2-49.6); HEMOGLOBIN 10.6 g/dL (14.0-18.0); LYMPHOCYTES # (AUTO) 1.9 (1.0-3.2); LYMPHOCYTES % 17.4 % (18.0-39.1); MEAN CORPUSCULAR HEMOGLOBIN 28.7 pg (28-32); MEAN CORPUSCULAR VOLUME 89.7 fL (81-99); MONOCYTES # (AUTO) 1.2 (0.2-0.8); MONOCYTES % 11.3 % (4.4-11.3); NEUTROPHILS % 64.5 % (38.7-80.0); PLATELET COUNT 158 x10e3/uL (140-360); RED BLOOD COUNT 3.69 x10e6/uL (4.3-5.7); RED CELL DISTRIBUTION WIDTH 15.9 % (11.7-14.4)
== END 2021-08-30 22:40 | disposition home or self-care (01) | DRG 356 ==
LOC: ER 11:09 → ERHOLD 12:55 → ICU 15:01 → MED/SURG 08-30 14:36
PROVIDERS: ADMIT Internal Medicine; ATTEND Internal Medicine
PROC: 04L53DZ Occlusion of Superior Mesenteric Artery with Intraluminal Device, Percutaneous Approach (ICD-10-PCS; principal; 2021-08-29)
DX: K92.2 Gastrointestinal hemorrhage, unspecified (principal); R57.8 Other shock; C19 Malignant neoplasm of rectosigmoid junction; C79.51 Secondary malignant neoplasm of bone; C78.02 Secondary malignant neoplasm of left lung; C78.01 Secondary malignant neoplasm of right lung; C78.1 Secondary malignant neoplasm of mediastinum; D62 Acute posthemorrhagic anemia; I10 Essential (primary) hypertension; E78.5 Hyperlipidemia, unspecified; D75.1 Secondary polycythemia; Z86.711 Personal history of pulmonary embolism; G62.9 Polyneuropathy, unspecified; Z90.49 Acquired absence of other specified parts of digestive tract; Z96.652 Presence of left artificial knee joint; Z20.822 Contact with and (suspected) exposure to COVID-19
CPT/HCPCS: 36415; 37242; 71045; 74174; 74470; 75726; 75774; 76937; 80053; 82550; 82553; 83605; 84484; 85025; 85610; 85730; 86850; 86900; 86920; 87040; 94760; 94799; 99152; 99153; 99285; C1760; C1769; C1887; J2001; J2353; J2354; J2405; J2543; J3010; J7030; J7050; Q9967; U0002